=== PATIENT | female | born 1975 | race Caucasian/White ===

== ENCOUNTER 2021-05-31 10:22 | Emergency (ER) | payer BC, SELFPAY ==
[2021-05-31 10:23] VITALS: BP 153/90; PULSE 97; RESP 18; TEMP 37.1; O2SAT 99; BMI 57.6
--- NOTE | 2021-05-31 10:40 | XR_ITS ---
PROCEDURE: XR KNEE LT 3V CLINICAL INDICATION: FALL Posttraumatic pain COMPARISON: No exams were available for comparison FINDINGS: No fracture or dislocation. No lytic or blastic change. There is normal mineralization. Mild osteoarthritic changes are present involving all 3 compartments. No acute fracture or dislocation. Generalized soft tissue swelling is present in the upper pretibial region and infrapatellar area Other findings:None. IMPRESSION: Soft tissue swelling, no acute fracture Dictated by: Tito Brooks MD 05/31/2021 11:38 Tito Brooks MD in OV 05/31/2021 11:38
--- NOTE | 2021-05-31 12:05 | HMH.EDUTC ---
[facility] [place] Clinical Impression: Contusion of left knee Qualifiers: Encounter type: initial encounter Qualified Code(s): S80.02XA - Contusion of left knee, initial encounter Disposition: Home, Self-Care Condition on Discharge: Good Instructions: How to Use Crutches, Knee Sprain, DI for Knee Sprain, DI for Knee Pain, How to Use a Knee Immobilizer Additional Instructions: Rest the extremity, apply ice for 15 minutes as tolerated three or four times per day, Elevate the extremity as tolerated while you are resting. Take ibuprofen for pain. I sent in a prescription to your pharmacy. Follow up with Dr. Torrez (orthopedics). I put in a referral but you need to call his office and schedule an appointment. Follow up with your regular doctor. GO TO THE ER FOR ANY WORSENING SYMPTOMS Prescriptions: Ibuprofen [Ibuprofen 600mg Tablet] 600 mg PO Q6HP PRN #30 tab PRN Reason: Mild Pain Transmission Status: Received by [facility] Referrals: Ladarius Liang [Primary Care Provider] - Amaury Torrez MD [Staff Physician] - Forms: Work/School Release Time of Disposition: 12:09 Medical Decision Making - Medical Records Medical records reviewed: No: I reviewed the patient's medical records. - Nima Inquiry Pt receiving controlled substance: No Vital Signs: 05/31/21 10:23 05/31/21 12:30 Temperature 98.7 F 98.7 F Temperature Source Oral Pulse Rate 97 H Pulse Rate [Left Radial] 97 H Respiratory Rate 18 18 Blood Pressure 153/90 H Blood Pressure [Right Arm] 153/90 H Blood Pressure Mean [Right Arm] 111 Blood Pressure Source Automatic Cuff Blood Pressure Source [Right Arm] Automatic Cuff Blood Pressure Position Sitting Blood Pressure Position [Right Arm] Sitting 02 Sat by Pulse Oximetry 99 Oxygen Delivery Method Room Air - Lab Data Lab results reviewed: Yes: I reviewed the patient's lab results. [facility] [place] - General Stated complaint: AO [id number] left knee pain, home accident Time Seen by Provider: 05/31/21 11:00 Mode of Arrival: Ambulatory Source of Information: Patient Limitations: No Limitations Description of Symptoms (Recalled from Triage Doc. by RN): c/o left knee pain and swelling after she fell on the concrete when her dog pulled her HEENT Symptoms (Recalled from RN notes): No Resp Symptoms (Recalled from RN notes): No Skin Symptoms (Recalled from RN notes): No MS Symptoms (Recalled from RN notes): Yes Functional Status (Recalled from RN notes): wnl - History of Present Illness Provider Complaint: She states that she was walking her dog this morning when the dog pulled her and she fell. She came down on her left knee. Since then she has had left knee pain and swelling. She states that bearing weight on the knee makes it much worse. - Related Data Previous Rx's Medication Instructions Recorded Ibuprofen [Ibuprofen 600mg 600 mg PO Q6HP PRN #30 tab 05/31/21 Tablet] - Worker's Comp Is this a Worker's Comp case?: No [facility] History - Hepatitis A Screen Drug use history?: No High risk sexual behaviors?: No History of sexually transmitted infection?: No Currently employed?: No Childcare worker?: No Do you have indoor plumbing?: Yes Do you have electricity?: Yes Attestation statement:: This patient has been screened for Hepatitis A risk factors. I have reviewed the patient's past medical history: Yes ROS Obtained: Yes All systems reviewed & no additional complaints - Constitutional Constitutional: Denies chills, Denies fever(s) - Eyes Eyes: Denies eye discharge - ENT Ears, Nose, Mouth, and Throat: Denies dizziness, Denies otalgia, Denies sore throat - Cardiovascular Cardiovascular: Denies chest pain - Respiratory Respiratory: Denies chest congestion, Denies cough, Denies dyspnea, Denies stridor, Denies wheezing - Gastrointestinal Gastrointestingal: Denies: abdominal pain, diarrhea, nausea, vomiting - Musculoskeletal Musc
[2021-05-31 12:30] VITALS: BP 153/90; PULSE 97; RESP 18; TEMP 37.1; O2SAT 99
== END 2021-05-31 12:30 | disposition home or self-care (01) ==
PROVIDERS: Emergency Provider Nurse Practitioner Family; PCP Family Medicine
DX: S80.02XA Contusion of left knee, initial encounter (principal); W01.0XXA Fall on same level from slipping, tripping and stumbling without subsequent striking against object, initial encounter; Y93.K1 Activity, walking an animal; Y92.480 Sidewalk as the place of occurrence of the external cause
CPT/HCPCS: 73562; 99202; G0463

== ENCOUNTER 2024-12-29 16:44 | Outpatient (CLI) | payer BC, SELFPAY ==
[2024-12-29 19:26] LABS: Alanine Aminotransferase 55 U/L (12-78); Albumin/Globulin Ratio 1.9 (1.1-1.8); Alkaline Phosphatase 140 U/L (38-126); Anion Gap 13.5 mEq/L (5-15); Aspartate Amino Transferase 40 U/L (14-36); Bilirubin,Total 1.2 mg/dl (0.2-1.3); Blood Urea Nitrogen 25 mg/dl (7-17); Calcium 11.9 mg/dl (8.4-10.2); Carbon Dioxide 28 mmol/L (22.0-30.0); Chloride 100 mmol/L (98-107); Estimated Glomerular Filt Rate 89 ml/min (>60); GFR (African American) 108 ML/MIN (>60); Globulin 2.6 g/dL (1.3-3.2); Glucose 105 mg/dl (74-100); Potassium 3.5 mmoL/L (3.5-5.1); Sodium 138 mmol/L (136-145); Total Protein,Serum 7.6 g/dl (6.3-8.2)
[2025-01-03 04:12] LABS: PTH Related Peptide < 2.0 pmol/L (.)
== END 2024-12-29 23:59 | disposition home or self-care (01) ==
LOC: LAB 16:44
PROVIDERS: PCP Internal Medicine; Visit Provider Internal Medicine
DX: E87.6 Hypokalemia (principal); R79.89 Other specified abnormal findings of blood chemistry
CPT/HCPCS: 36415; 80053; 82397

== ENCOUNTER 2025-02-05 09:12 | Outpatient (CLI) | payer BC, SELFPAY ==
--- NOTE | 2025-02-05 09:54 | ECG_ITS ---
APPROVED REPORT Exam: Resting ECG HR:93 bpm ECG Measurements Heart Rate 93 AXES HI 140 P 24 QRSd 102 QRS -13 QT 353 T 9 QTc 404 Conclusion SINUS RHYTHM MODERATE VOLTAGE CRITERIA FOR LVH, CONSIDER NORMAL VARIANT [MEETS CRITERIA IN ONE OF: R(aVL), S(V1), R(V5), R(V5/V6)+S(V1)] BORDERLINE ECG UNCONFIRMED REPORT Electronically signed by : Ishan Armando MD 02/09/2025 08:49:50
[2025-02-05 10:00] VITALS: BMI 52.8
[2025-02-05 10:50] LABS: Basophils % 0.5 % (0.1-2.0); Eosinophils # 0.1 K/mm3 (0.0-0.4); Eosinophils % 1.8 % (0.1-12.0); Hematocrit 41.9 % (37.0-47.0); Hemoglobin 12.9 g/dL (12.2-16.2); Lymphocytes # 1.8 K/mm3 (0.7-4.5); Lymphocytes % 29.2 % (10-50); Mean Corpuscular HGB Conc 30.8 g/dL (31.8-35.4); Mean Corpuscular Volume 84.3 fl (81-99); Mean Platelet Volume 10.6 fl (7.4-10.4); Monocytes # 0.4 K/mm3 (0.1-1.0); Monocytes % 6.9 % (1.7-9.3); Neutrophils # 3.9 K/mm3 (1.8-7.8); Neutrophils % 61.4 % (37.0-80.0); Nucleated Red Blood Cells # 0 10^3/uL; Nucleated Red Blood Cells % 0 %; Platelet Count 348 K/mm3 (142-424); Red Blood Count 4.97 M/mm3 (4.20-5.40); Red Cell Distribution Width 15.5 % (11.5-17.5); Red Cell Distribution Width-SD 47.7 fL; White Blood Count 6.3 K/mm3 (4.8-10.8)
[2025-02-05 10:58] LABS: Albumin Level 4.5 g/dl (3.5-5.0); Chloride 101 mmol/L (98-107); Sodium 139 mmol/L (136-145)
[2025-02-05 10:59] LABS: Potassium 3.2 mmoL/L (3.5-5.1)
[2025-02-05 11:01] LABS: Alanine Aminotransferase 45 U/L (12-78); Albumin/Globulin Ratio 1.3 (1.1-1.8); Alkaline Phosphatase 132 U/L (38-126); Anion Gap 13.2 mEq/L (5-15); Aspartate Amino Transferase 47 U/L (14-36); Bilirubin,Total 1.1 mg/dl (0.2-1.3); Blood Urea Nitrogen 16 mg/dl (7-17); Calcium 11.8 mg/dl (8.4-10.2); Carbon Dioxide 28 mmol/L (22.0-30.0); Creatinine Clearance Estimated 78 mL/min (50-200); Estimated Glomerular Filt Rate 89 ml/min (>60); GFR (African American) 108 ML/MIN (>60); Globulin 3.4 g/dL (1.3-3.2); Glucose 109 mg/dl (74-100); HCG Qualitative, Serum Negative (Negative); Total Protein,Serum 7.9 g/dl (6.3-8.2)
[2025-02-05 11:23] LABS: HCG,Quantitative < 2 mIU/ml (0-5.42)
== END 2025-02-05 23:59 | disposition home or self-care (01) ==
PROVIDERS: PCP Internal Medicine; Visit Provider Obstetrics & Gynecology
DX: N93.9 Abnormal uterine and vaginal bleeding, unspecified (principal); R94.31 Abnormal electrocardiogram [ECG] [EKG]
CPT/HCPCS: 80053; 84702; 84703; 85025; 93005

== ENCOUNTER 2025-02-10 13:19 | Observation (INO) | payer BC, SELFPAY ==
[2025-02-05 10:23] VITALS: BMI 52.8
[2025-02-10] VITALS (26 sets, daily range): BP systolic 90–142; BP diastolic 35–86; PULSE 65–96; RESP 14–18; TEMP 36.4–36.7; O2SAT 92–99
[2025-02-10] MEDS: LACTATED RINGERS 1000ML 1,000 ML 25 ML IV (06:33)
[2025-02-10] MEDS: GABAPENTIN 300MG CAPSULE 600 MG (06:33)
[2025-02-10] MEDS: ACETAMINOPHEN 500MG TAB 1000 MG PO (06:34)
--- NOTE | 2025-02-10 07:12 | EXP.ANES.CKL ---
[facility] Disclaimer: The information contained in this section may have been updated after the patient was seen, as this information can be updated by other users. Medical History HTN (hypertension) Mitral valve regurgitation History of hypertension Adenomyosis Surgical History History of surgery biliopancreatic diversion H/O tubal ligation Gastric bypass status for obesity History of cholecystectomy History of endometrial ablation Family History Grandmother Cancer paternal-breast Heart attack Father Diabetes Coronary artery disease Mother Coronary artery disease Brother Heart attack Social History Smoking Status: Never smoker alcohol intake: never substance use type: denies use current occupational status: employed Travel in the last 8 weeks: None [facility] Anesthesia Checklist Patient Identification Patient Identification: Arm Band Structural Data Admitted From: Home Planned Operative Procedure/s: Total Vaginal Hysterectomy Consent for Planned Operative Procedure(s) Verified: Yes Verified Documents: Surgical Consent and History and Physical NPO Status Verified Time NPO: 00:00 Additional verifications Anesthesia Reactions: No Hx Blood Transfusions: Yes Blood Transfusion Reaction: No Airway Assessment Mallampati Score:: Class II C-Spine Mobility Assessed: Yes TMJ Mobility Assessed: Yes Dentition: Good Dentition Neurological Assessment Level of Consciousness: Awake, Alert and Appropriate Anesthesia Plan Anesthesia Risk discussed: Yes Anesthesia Plan: Verified ASA Class: III Anesthesia Type: General
[2025-02-10] MEDS: CEFAZOLIN SODIUM 3 GM in 0.9 % SODIUM CHLORIDE 100 ML IV (07:16)
[2025-02-10] MEDS: METRONIDAZ/SOD CHL 500 MG/100 ML PIGGYBACK 100 MG IV (07:35)
[2025-02-10] MEDS: METHYLENE BLUE 0.5% 10ML AMPULE 50 MG IV (07:40)
[2025-02-10] MEDS: LIDOCAINE 1% W/EPI 1:100,000 20ML VIAL 20 ML (07:50)
--- NOTE | 2025-02-10 09:36 | EXP.OP.NOTE ---
Date of procedure: 02/10/25 Pre-op Diagnosis:: 1. Abnormal uterine bleeding 2. Heavy uterine bleeding 3. History of anemia,requiring blood transfusion Post-op Diagnosis:: 1. Abnormal uterine bleeding 2. Heavy uterine bleeding 3. History of anemia,requiring blood transfusion Procedure performed:: 1. Total vaginal hysterectomy 2. Cystoscopy Surgeon:: Suzy Bobby DO Strategic Accounts Manager(s):: Benton Felipe MD REAL ESTATE JOB TITLES:: Noam Reyes Anesthesia: GETA Estimated blood loss (mL): 100 Operative findings:: Uterine EUA was nonrevealing secondary to habitus. Minimal uterine descent noted. No gross adnexal masses were appreciated. Operative note:: Pt was taken back to the OR where GETA was obtained without difficulty. SCDs were placed and found to be working. The patient was placed in dorsal lithotomy position using yellowfin stirrups. The vagina was prepped and draped in the normal sterile fashion. An in and out catheter was used to drain the bladder and 20 mL of methylene blue normal saline were inserted into the bladder. A weighted speculum and Cierra were used to visualize the cervix. Two Smith tenaculums were used to grasp the anterior and posterior ectocervix on the right and left. A scalpel was used to make a circumferential incision at the cervicovaginal junction. A raytec was used to bluntly dissect the paracervical fascia from the cervix off the vaginal mucosa. Metzenbaum scissors and pickups were used to enter the colpotomy posteriorly and a long weighted speculum was placed. Abdominal entry was confirmed by the presence of the ovary and omentum. The left uterosacral ligament was grasped with a shirin clamp, cut, and suture ligated with 0-Vicryl. This was tagged for later incorporation to the cuff. This process was repeated on the contralateral side. The anterior vaginal tissue was further dissected off the cervix. Pickups and Metzenbaum scissors were used to make the anterior colpotomy. A Scipio retractor was placed. Entry to the abdominal cavity was confirmed with the presence of omentum and the left ovary was visualized. A shirin clamp was used to clamp time working serially down the broad ligament remaining proximal to the uterine body. This was repeated on the contralateral side. The cardinal ligaments and uterine vessels were identified bilaterally and clamped, cut, and suture-ligated bilaterally. The fundus was rotated posteriorly of the vagina secondary to a large uterine body. The utero-ovarian ligaments identified, clamped, and suture-ligated. The uterus was free and removed from the vagina, passed off the operative field and sent to pathology for evaluation. The ovaries were not easily identified and left in situ. A damp lap was placed in the abdomen to retract the bowel and omentum cephalad. The posterior peritoneum was fixed to the posterior vaginal cuff with a running locking stitch. The vaginal cuff was then closed with 0 Vicryl in a running locking fashion. There was a small linear abrasion to the left vaginal sidewall that was bleeding and made hemostatic with a 201 3-0 Vicryl. Secondary to atrophic vaginal mucosa there was also a small abrasion at the perineum in the midline that was repaired. Cystoscopy Cystoscopy was performed with a 70 degree cystoscope and distended with normal saline. Inspection of the bladder showed a normal-looking, blue dyed, smooth bladder mucosa with no evidence of injury, suture, puckering, or other abnormalities.? Both ureteral meatuses were visualized and were noted to be expelling urine in routine fashion.? Cystoscope was removed. Sponge, instrument and needle counts were correct x3, per nursing. The patient was awakened from general anesthesia and transferred to the PACU in stable condition. Condition: stable Disposition: floor Specimens:: Uterine body, cervix Complications:: None
--- NOTE | 2025-02-10 09:38 | P.PNANES_ITS ---
[facility] Anesthesia Record Part I Anesthesia Record I Intake, IV Amount: 700 Hydration: Adequate Estimated blood loss (mL): 100 Urine output (mL): 0 Blood Products used (#): none Blood Pressure: 113/81 SaO2: 93 Pulse Rate: 81 Airway Patency: Patent Respiratory Rate: 14 Temperature: 97.6 F Patient is:: Stable Stable to PACU at:: 09:30
[2025-02-10] MEDS: MORPHINE 2MG/ML SYRINGE 2 MG IV ×2 (09:55→10:00)
[2025-02-10] MEDS: ONDANSETRON 4MG/2ML VIAL 4 MG IV (10:04)
[2025-02-10] MEDS: KETOROLAC 30MG/ML VIAL 30 MG IV (10:10)
[2025-02-10] MEDS: OXYCODONE 5MG W/APAP 325MG TABLET 1 EACH PO ×2 (10:15→20:51)
[2025-02-10] MEDS: SODIUM CHLORIDE 0.9% 25ML BAG 25 ML IV (10:38)
[2025-02-10] MEDS: PROMETHAZINE HCL 25MG/ML 1ML VIAL 12.5 MG IV (10:38)
--- NOTE | 2025-02-10 13:19 | EXP.ANES.II ---
[facility] Anesthesia Record Part II Anesthesia Record Part II Discharge Time: 11:00 Destination: Surgical Day Care (OP Surgery) PACU nurse assessment reviewed?: Yes Patient Condition:: Good Anesthesia Complications:: None Swallowing reflex intact?: Yes Airway Patency: Patent Cyanosis?: No Blood Pressure: 112/72 SaO2: 97 Respiratory Rate: 18 Pulse Rate: 79 Temperature: 97.8 F Mental Status: Alert & Oriented Pain level:: 7 Nausea and/or vomitting:: None Intake, IV Amount: 0 Hydration: Adequate
--- NOTE | 2025-02-10 13:28 | SUR.PHASEII ---
1315: Decision to admit per Dr. Bobby for over night observation. Room 279 assigned to pt. Report given to Kita RN per Melly Bazan RN. 1327: Pt taken to room per Sima Saez RN by wheelchair.
[2025-02-10] MEDS: BENZOCAINE-MENTHOL SPRAY 56GM CAN TP (17:34)
--- NOTE | 2025-02-10 18:44 | PC.NURSE ---
Report received from Kita Mast RN.
--- NOTE | 2025-02-10 18:44 | PC.NURSE ---
Report given to CHA De Los Santos.
--- NOTE | 2025-02-10 19:30 | PC.NURSE ---
Pt is visiting with family. She denies any current needs or concerns. Nurse call button is within reach.
[2025-02-10] MEDS: DOCUSATE SODIUM 100 MG CAPSULE 200 MG PO (20:51)
--- NOTE | 2025-02-10 20:51 | PC.NURSE ---
Pt given Oxycodone 1 tab po for her pain. Pt also given Colace per prn order to prevent constipation. Pt also given a heating pad for prn use to her abdominal cramps.
--- NOTE | 2025-02-10 22:52 | PC.NURSE ---
Dr Bobby called and asked for an update on pt's status. She did request that pt's SPO2 be spot checked while she is sleeping. SPO2 checked = 93-94% at this time and pt was sleeping upon this RN entering the room and applying the SPO2 monitor. Pt denies any current needs or concerns.
[2025-02-11] VITALS: BP 120/63; PULSE 84; RESP 15; TEMP 36.7; O2SAT 98
[2025-02-11] MEDS: ACETAMINOPHEN 500MG TAB 500 MG PO ×2 (01:27→08:48)
--- NOTE | 2025-02-11 01:27 | PC.NURSE ---
Pt given Tylenol 500mg po for her c/o cramping abdominal pain rated 3 out of 10. Pt reports that she recently got up to void and the cramping is keeping her awake. Pt continues to use her heating pad prn. Nurse call button is within reach.
[2025-02-11 01:28] VITALS: RESP 16; O2SAT 96
[2025-02-11 04:28] VITALS: BP 115/66; PULSE 78; RESP 16; TEMP 36.9; O2SAT 95
[2025-02-11 06:00] VITALS: O2SAT 99
--- NOTE | 2025-02-11 06:33 | PC.NURSE ---
Pt is resting in bed, she reports minimal pain and that she rested well overnight. Pt denies any current needs. Pt is voiding without difficulty and reported no vaginal bleeding the last couple of times she got up.
[2025-02-11 06:43] LABS: Basophils % 0.4 % (0.1-2.0); Eosinophils # 0.1 K/mm3 (0.0-0.4); Eosinophils % 0.7 % (0.1-12.0); Hemoglobin 10.9 g/dL (12.2-16.2); Lymphocytes # 2.4 K/mm3 (0.7-4.5); Lymphocytes % 30.2 % (10-50); Mean Corpuscular HGB Conc 30.3 g/dL (31.8-35.4); Mean Corpuscular Hemoglobin 25.4 pg (27.0-31.2); Mean Corpuscular Volume 83.9 fl (81-99); Mean Platelet Volume 9.9 fl (7.4-10.4); Monocytes # 0.7 K/mm3 (0.1-1.0); Monocytes % 8.3 % (1.7-9.3); Neutrophils # 4.8 K/mm3 (1.8-7.8); Neutrophils % 60.2 % (37.0-80.0); Nucleated Red Blood Cells # 0 10^3/uL; Nucleated Red Blood Cells % 0 %; Platelet Count 285 K/mm3 (142-424); Red Blood Count 4.29 M/mm3 (4.20-5.40); Red Cell Distribution Width 15.5 % (11.5-17.5); Red Cell Distribution Width-SD 47.4 fL
[2025-02-11 06:51] LABS: Albumin Level 3.6 g/dl (3.5-5.0); Chloride 105 mmol/L (98-107); Potassium 3.1 mmoL/L (3.5-5.1); Sodium 141 mmol/L (136-145)
[2025-02-11 06:54] LABS: Alanine Aminotransferase 33 U/L (12-78); Albumin/Globulin Ratio 1.2 (1.1-1.8); Alkaline Phosphatase 94 U/L (38-126); Anion Gap 9.1 mEq/L (5-15); Aspartate Amino Transferase 30 U/L (14-36); Bilirubin,Total 0.5 mg/dl (0.2-1.3); Blood Urea Nitrogen 10 mg/dl (7-17); Calcium 10.4 mg/dl (8.4-10.2); Carbon Dioxide 30 mmol/L (22.0-30.0); Creatinine Clearance Estimated 91 mL/min (50-200); Estimated Glomerular Filt Rate 107 ml/min (>60); GFR (African American) 129 ML/MIN (>60); Globulin 2.9 g/dL (1.3-3.2); Glucose 100 mg/dl (74-100); Total Protein,Serum 6.5 g/dl (6.3-8.2)
--- NOTE | 2025-02-11 07:05 | PC.NURSE ---
Report given to Gwen Turk RN
[2025-02-11 08:42] VITALS: BP 142/93; PULSE 80; RESP 18; TEMP 36.6; O2SAT 94
[2025-02-11] MEDS: POTASSIUM CHLORIDE 20MEQ TAB 40 MEQ PO (08:47)
--- NOTE | 2025-02-11 08:53 | P.HPDS_ITS ---
General Admission date:: 02/10/25 Discharge date: 02/11/25 *Admission Date: 02/10/25 *Chief complaint: hysterectomy *History of present illness: Who presented this morning for a total vaginal hysterectomy with cystoscopy. Surgery was completed and was uncomplicated [facility] Disclaimer: The information contained in this section may have been updated after the patient was seen, as this information can be updated by other users. Medical History HTN (hypertension) Mitral valve regurgitation History of hypertension Adenomyosis Surgical History History of surgery biliopancreatic diversion H/O tubal ligation Gastric bypass status for obesity History of cholecystectomy History of endometrial ablation Family History Grandmother Cancer paternal-breast Heart attack Father Diabetes Coronary artery disease Mother Coronary artery disease Brother Heart attack Social History (Updated 02/10/25 @ 15:11 by Terrie Lazo RN) Smoking Status: Never smoker alcohol intake: never substance use type: denies use current occupational status: employed Travel in the last 8 weeks: None Have you lived/traveled outside US in past 30 days?: No Contact w/someone who lives/traveled outside US past 30 days?: No Exposure to someone with infectious disease in past 14 days?: No Do you have a fever (greater than 100.4 F or 38 C)?: No Have you tested positive for COVID-19: No Exposed to someone with COVID-19 in past 14 days?: No Do you have a sore throat?: No Do you have a cough?: No Do you have any weakness?: No Do you have any diarrhea?: No Are you experiencing any unusual bleeding?: No Do you have any muscle aches/pain?: No Do you have any abdominal pain?: No Are you experiencing loss of taste or smell?: No Other Medical History Have you received the Flu Vaccine for this season: No Have you received the Pneumonia Vaccine: No Review of Systems Review of Systems Review of systems (narrative): Review of Systems Constitutional: Denies fever, chills, and sweats Eyes: Denies vision change/ pain Respiratory: Denies cough and shortness of breath Cardiovascular: Denies chest pain and lightheadedness Gastrointestinal: denies abdominal pain. Denies nausea, vomiting. Genitourinary: Denies dysuria and incontinence Musculoskeletal: Denies shoulder pain and back pain Neurological: Denies change in speech or headaches Exam Data for Last 24 hours Vital signs and Labs for Last 24 Hours: Temp Pulse Resp BP Pulse Ox O2 Del Method 98.4 F 78 16 115/66 99 Room Air 02/11/25 04:28 02/11/25 04:28 02/11/25 04:28 02/11/25 04:28 02/11/25 06:00 02/11/25 06:00 Laboratory Results - last 24 hr 02/11/25 06:32: WBC 8.0, RBC 4.29, Hgb 10.9 L, Hct 36.0 L, MCV 83.9, MCH 25.4 L, MCHC 30.3 L, RDW 15.5, Plt Count 285, MPV 9.9, Neut % (Auto) 60.2, Lymph % (Auto) 30.2, [place] % (Auto) 8.3, Eos % (Auto) 0.7, Baso % (Auto) 0.4, Neut # (Auto) 4.8, Lymph # (Auto) 2.4, [place] # (Auto) 0.7, Eos # (Auto) 0.1, Baso # (Auto) 0.0, Sodium 141, Potassium 3.1 L, Chloride 105, Carbon Dioxide 30, Anion Gap 9.1, BUN 10, Creatinine 0.60, Estimated Creat Clear 91, Estimated GFR 107, Est GFR ( Amer) 129, Glucose 100, Calcium 10.4 H, Magnesium 2.0, Total Bi lirubin 0.5, AST 30, ALT 33, Alkaline Phosphatase 94, Total Protein 6.5, Albumin 3.6, Globulin 2.9, Albumin/Globulin Ratio 1.2 I & O for Last 24 hours: Intake & Output 02/08/25 02/09/25 02/10/25 02/11/25 23:59 23:59 23:59 23:59 Intake Total 700 / 700 Output Total / 2 / 2 Balance 699 / 699 -2 / -2 Constitutional Constitutional: no acute distress *Routine HEENT Exam Head: Present normocephalic Eye: Present EOMI and PERRL ENT: Present mucous membranes moist *Routine Neck Exam Neck: Present supple; Absent lymphadenopathy *Routine Respiratory Exam Respiratory: Present CTA bilaterally *Routine Cardiovascular Exam Cardiovascular: Present RRR *Routine Abdominal Exam Abdominal: Present soft and normoactive bowel sounds; Absent tenderness *Routine Rectal Exam Rectal:: deferred *Routine Genitalia Exam Genitalia:: deferred *Routine Extremities Exam Extremities: Absent cyanosis, clubbing or edema *Routine Skin Exam Skin: Present warm; Absent rash *Routine Neurological Exam Neurological: Present alert and oriented X3 Meds Home Medications and Allergies Home Medications ?Medication ?Instructions ?Recorded ?Confirmed ?Type ergocalciferol (vitamin D2) 1,250 1,250 mcg PO WEEKLY 12/16/24 02/10/25 History mcg (50,000 unit) capsule (Vitamin D2) famotidine 20 mg tablet 20 mg PO DAILY 12/29/24 02/10/25 History cyanocobalamin (vitamin B-12) 100 mcg SQ WEEKLY 02/05/25 02/10/25 History 1,000 mcg/mL injection solution potassium phosphate, monobasic 500 500 mg PO BID 02/05/25 02/10/25 History mg soluble tablet (K-Phos Original) cholecalciferol (vitamin D3) 1,250 1,250 mcg PO DAILY 02/09/25 02/10/25 History mcg (50,000 unit) capsule enoxaparin 40 mg/0.4 mL 40 mg (0.4 mL) SQ DAILY 7 days 02/09/25 02/10/25 Rx subcutaneous syringe (Lovenox) #2.8 mL needle (disp) 25 gauge 25 gauge x #1,000 ea 02/09/25 02/10/25 History 1 (BD PrecisionGlide) acetaminophen 500 mg tablet 500 mg PO Q6H PRN fever or pain 02/10/25 Rx #30 tabs chlorthalidone 25 mg tablet 25 mg PO DAILY 02/10/25 02/10/25 History oxycodone 5 mg tablet 5 mg PO Q8H PRN pain #25 tabs 02/10/25 Rx sennosides 8.6 mg tablet (Senna 8.6 mg PO BIDP PRN Constipation 02/10/25 Rx Lax) #60 tabs simethicone 125 mg tablet 125 mg PO DAILY PRN abdominal 02/10/25 Rx distention #60 tabs potassium chloride 20 mEq 20 meq PO BID #60 tabs 02/11/25 Rx tablet,extended release New Prescriptions to Start Prescriptions: acetaminophen Suzy Bobby oxycodone Suyz Bobby potassium chloride Suzy Bobby sennosides [Senna Lax] Suzy Bobby simethicone Suzy Bobby Allergies Allergy/AdvReac Type Severity Reaction Status Date / Time lisinopril Allergy Severe Swelling Verified 02/10/25 06:38 of Lip/Tongue/Throat Hospital Course Hospital Course Hospital Course: Radha Donis is a 49-year-old postop day 1 from a total vaginal hysterectomy. She is doing well this morning. Yesterday she plans to go home but was very groggy after anesthesia we initially had difficulty getting her pain controlled but it was well-controlled at 2 hours postoperatively. She was dozing off and noted to have oxygen desaturations to the 70s and 80s. Her family were at bedside and they report a history of noticing apneic events throughout the last few years. Decision was made to observe her overnight since she would need narcotic pain medicine tonight for pain management from her hysterectomy. Otherwise she was doing very well she was tolerating p.o., ambulating, and voiding without difficulty. Patient reports that she received excellent care overnight and is very happy with the nursing staff and all the education and comfort needs that they have provided for her. She did have some desaturations to the 80s with naps but otherwise her oxygen saturation has been in the 90s. This was discussed with her PCP and she will get a sleep study in the postoperative period. She also has electrolyte imbalances and has hypokalemia which has been chronic. This is likely complicated by her history of bariatric surgery x 2. Will replace her potassium this morning and she will follow-up with her PCP for chronic electrolyte imbalances. I reviewed a healthy diet high in protein which was necessary for optimal healing. I reviewed postoperative instructions and restrictions. The patient and her daughter, Rina voiced understanding Pt started her postop lovenox last night. Results Data Completed and Pending Labs on day of discharge: Labs from last 24 hours 02/11/25 06:32 WBC 8.0 RBC 4.29 Hgb 10.9 L Hct 36.0 L MCV 83.9 MCH 25.4 L MCHC 30.3 L RDW 15.5 Plt Count 285 MPV 9.9 Neut % (Auto) 60.2 Lymph % (Auto) 30.2 [place] % (Auto) 8.3 Eos % (Auto) 0.7 Baso % (Auto) 0.4 Neut # (Auto) 4.8 Lymph # (Auto) 2.4 [place] # (Auto) 0.7 Eos # (Auto) 0.1 Baso # (Auto) 0.0 Sodium 141 Potassium 3.1 L Chloride 105 Carbon Dioxide 30 Anion Gap 9.1 BUN 10 Creatinine 0.60 Estimated Creat Clear 91 Estimated GFR 107 Est GFR ( Amer) 129 Glucose 100 Calcium 10.4 H Magnesium 2.0 Total Bilirubin 0.5 AST 30 ALT 33 Alkaline Phosphatase 94 Total Protein 6.5 Albumin 3.6 Globulin 2.9 Albumin/Globulin Ratio 1.2 Discharge Plan Disposition Patient Disposition: Home, Self-Care Follow up Plan Follow up with: Suzy Bobby DO [Staff Physician] - 02/17/25 9:30 am Prescriptions/Medication Reconciliation: New acetaminophen 500 mg tablet 500 mg PO Q6H PRN (Reason: fever or pain) Qty: 30 3RF sennosides [Senna Lax] 8.6 mg Tablet 8.6 mg PO BIDP PRN (Reason: Constipation) Qty: 60 2RF oxycodone 5 mg tablet 5 mg PO Q8H PRN (Reason: pain) Qty: 25 0RF simethicone 125 mg tablet 125 mg PO DAILY PRN (Reason: abdominal distention) Qty: 60 2RF potassium chloride 20 mEq tablet extended release 20 meq PO BID Qty: 60 1RF Continued cholecalciferol (vitamin D3) 1,250 mcg (50,000 unit) capsule 1,250 mcg PO DAILY Patient Comments: Take 1 tablet by mouth 2 (Two) Times a Week. (DME) BD PrecisionGlide 25 gauge x 1 needle See Rx Instructions .ROUTE .MEDSUPPLY Qty: 1000 Patient Comments: Inject 1 each as directed Daily. For B12 injections Rx Instructions: As directed enoxaparin [Lovenox] 40 mg/0.4 mL syringe 40 mg SQ DAILY 7 Days Qty: 2.8 0RF Rx Instructions: daily for 7 days after surgery ergocalciferol (vitamin D2) [Vitamin D2] 1,250 mcg (50,000 unit) capsule 1,250 mcg PO WEEKLY Patient Comments: Take 1 capsule by mouth 1 (One) Time Per Week. famotidine 20 mg tablet 20 mg PO DAILY K-Phos Original 500 mg Tablet,Soluble 500 mg PO BID cyanocobalamin (vitamin B-12) 1,000 mcg/mL Solution 100 mcg SQ WEEKLY chlorthalidone 25 mg tablet 25 mg PO DAILY Problem Reconciliation Problems Reviewed?: Yes Patient Discharge Instructions ACTIVITY: Continue current activity DIET: regular diet Additional Instructions: Post op plan You had a total vaginal hysterectomy. This means that your uterus and cervix were removed. The top of your vagina is closed with dissolvable sutures. I also used a camera to look in your bladder after the surgery and there were no problems with your bladder wall or ureters. There were no complications with your surgery. I have called several medications in for you and they are detailed below as well as discharge instructions. If you have any questions, please call the office. You will follow-up in office for a postop visit at 1 weeks and at 6 weeks. At your 6-week postop appointment you will have a pelvic exam to ensure your cuff is healing well. Activity: - No lifting more than 10 lbs for 6 weeks. - No driving while you are taking narcotic pain medication. - Keep your wound clean and dry, ok to wash with soap and water but pat thoroughly dry Medications: - Acetaminophen (Tylenol) for discomfort. Please take Tylenol scheduled for the first 2 to 3 days. Tylenol dosing should not exceed 1000 mg every 6 hours. Please do not consume more than 4000 mg in a 24-hour. - Oxycodone (a narcotic pain medication) use the narcotic pain medication for breakthrough or severe pain. You will want to stop the narcotic pain medication first. Narcotic pain medication can be habit forming so please only use this medication if you need it. This pain medication is also associated with consti pation please remember to increase your fiber intake, and water intake. I have also given you a stool softener. You should not take more than 1-2 5 mg tablets every 6 hours for pain that rates greater than 6. - Senna (a stool softener) use this medication for constipation as needed. Narcotics can increase your risk for constipation - Simethicone: a gas medication for bloating and gas pain you may experience in the next 1-2 weeks. Please call the office or return to the ER if you have any of the followin. bleeding more than 1 pad an hour for 2 hours 2. pain that does not respond to your narcotic pain medication 3. dizziness or lightheadedness such that you lose consciousness Questions or concerns: It is my privilege to be your doctor. Please let me know if you have other questions or concerns. Suzy Bobby DO [facility] Specialist [place], [place] [address] Patient Instructions: DI for Postoperative Pain, DI for Vaginal Hysterectomy Print Language: [place] Providers Primary Care Provider: Rito Bobby Admit Provider: Suzy Bobby Attending Provider: Suzy Bobby
--- NOTE | 2025-02-11 09:54 | PC.NURSE ---
Discharge education provided, questions encouraged and answered. Pt. v/u.
== END 2025-02-11 10:09 | disposition home or self-care (01) ==
LOC: OB 13:21
PROVIDERS: Admitting Provider Obstetrics & Gynecology; PCP Internal Medicine; Visit Provider Obstetrics & Gynecology
PROC: (CPT 52000; principal; 2025-02-10 07:30)
DX: N93.9 Abnormal uterine and vaginal bleeding, unspecified (principal); R60.0 Localized edema; E55.9 Vitamin D deficiency, unspecified; Z98.84 Bariatric surgery status; I10 Essential (primary) hypertension; Z79.899 Other long term (current) drug therapy; Z88.8 Allergy status to other drugs, medicaments and biological substances
CPT/HCPCS: 52000; 58260; 80053; 83735; 85025; 86850; 96374; G0378; J0690; J1100; J1885; J2250; J2270; J2405; J2550; J3010; J7120

== ENCOUNTER 2025-02-17 10:21 | Outpatient (CLI) | payer BC, SELFPAY ==
[2025-02-17 11:13] LABS: Alanine Aminotransferase 45 U/L (12-78); Albumin/Globulin Ratio 1.3 (1.1-1.8); Alkaline Phosphatase 124 U/L (38-126); Aspartate Amino Transferase 37 U/L (14-36); Bilirubin,Total 0.6 mg/dl (0.2-1.3); Blood Urea Nitrogen 16 mg/dl (7-17); Calcium 11.4 mg/dl (8.4-10.2); Carbon Dioxide 20 mmol/L (22.0-30.0); Chloride 113 mmol/L (98-107); Estimated Glomerular Filt Rate 89 ml/min (>60); GFR (African American) 108 ML/MIN (>60); Globulin 3.1 g/dL (1.3-3.2); Glucose 94 mg/dl (74-100); Sodium 141 mmol/L (136-145); Total Protein,Serum 7.1 g/dl (6.3-8.2)
[2025-02-17 11:24] LABS: Intact Parathyroid Hormone 251.1 pg/mL (7.5-53.5)
[2025-02-17 11:30] LABS: 25-OH Vitamin D, Total 24.5 ng/mL (30-100)
== END 2025-02-17 23:59 | disposition home or self-care (01) ==
LOC: LAB 10:22
PROVIDERS: PCP Internal Medicine; Visit Provider Internal Medicine
DX: Z00.00 Encounter for general adult medical examination without abnormal findings (principal); Z13.21 Encounter for screening for nutritional disorder; R79.89 Other specified abnormal findings of blood chemistry; E55.9 Vitamin D deficiency, unspecified; Z68.43 Body mass index [BMI] 50.0-59.9, adult; E66.9 Obesity, unspecified
CPT/HCPCS: 36415; 80053; 82306; 83970

== ENCOUNTER 2025-02-22 07:34 | Outpatient (CLI) | payer BC, SELFPAY ==
[2025-02-23 14:12] LABS: Calcium, Urine 23.6 mg/dL (Not Estab.); Calcium, Urine 24hr 236 mg/24 hr (0-320)
== END 2025-02-22 23:59 | disposition home or self-care (01) ==
LOC: LAB 07:35
PROVIDERS: PCP Internal Medicine; Visit Provider Internal Medicine
DX: E83.52 Hypercalcemia (principal); R79.89 Other specified abnormal findings of blood chemistry
CPT/HCPCS: 82340

== ENCOUNTER 2025-03-01 12:37 | Outpatient (CLI) | payer BC, SELFPAY ==
--- NOTE | 2025-03-01 13:00 | XR_ITS ---
FINAL REPORT TECHNIQUE: Bone densitometry calculations of the lumbar spine and left hip were obtained. CLINICAL HISTORY: Osteoporosis scan due to hyperparathyroidism COMPARISON: None FINDINGS: Using L1-4, the bone mineral density of the spine is 0.993 g/cm2, corresponding to T-score of -0.5 and a Z score of 0.2. This is within the range of normal. Using the left hip, the bone mineral density of the femoral neck is 0.854 g/cm2, corresponding to a T-score of 0.0 and a Z-score of 0.7. This is within the range of normal. Using the right hip, the bone mineral density of the femoral neck is 0.785 g/cm?, corresponding to a T-score of -0.6 and a Z-score of 0.1. This is within the range of normal. NOTE: T-score: Standard deviation compared with peak bone mass of young adult mean. *Following the recommendations of the International Society of Bone densitometry, classification of hip BMD is based on the lower of two T-scores; total hip or femoral neck. IMPRESSION: 1. Bone mineral density of the lumbar spine within the range of normal. 2. Bone mineral density of the bilateral femoral necks within the range of normal. Reviewed, Interpreted and Dictated by Aaliyah Patel MD Transcribed by Leonora Joe Authenticated and [facility]
== END 2025-03-01 23:59 | disposition home or self-care (01) ==
LOC: RAD 12:40
PROVIDERS: PCP Internal Medicine; Visit Provider Internal Medicine
DX: R79.89 Other specified abnormal findings of blood chemistry (principal); E55.9 Vitamin D deficiency, unspecified
CPT/HCPCS: 77080

== ENCOUNTER → 2025-03-15 06:30 | Outpatient (CLI) | payer BC, SELFPAY | LOC: SL 06:31 | PROVIDERS: PCP Internal Medicine; Visit Provider Internal Medicine | DX: G47.33 Obstructive sleep apnea (adult) (pediatric) (principal) | CPT/HCPCS: G0399 ==

== ENCOUNTER 2025-06-09 09:39 | Outpatient (CLI) | payer BC, SELFPAY ==
--- OUTSIDE RECORDS SUMMARY | 2024-05-18 08:35 | XMS_ITS | Encounter Summary ---
Author Organization [facility] Address [address] [place] [address] Care Team Providers Care Stock Buyer Name Role Phone Ladarius Liang MD Primary Care Provider [phone] Encounter Details Date Type Department Care Team (Late st Contact Info) Description 05/18/2024 8:35 AM EDT Hospital Encounter [facility] PULMONARY & CRITICAL CARE MEDICINE [address] [place] [address] Social History Tobacco Use Types Packs/Day Years [...] or training? Not on file Preferred Language British 10/15/2024 Comments No Sex and Gender Information [...] 10/22/2024 6:00 AM Alicia Sagastume RN * [place] Suicide Severity Rating Scale (Screener/Recent Self-Report) Question Answer Date of Assessment Author 6. Suicidal Behavior (Lifetime) No 6:00 AM Alicia Bradford RN documented as of this encounter Plan of Treatment Upcoming Encounters Date Type Department Care Team (Late st Contact Info) Description 07/23/2025 11:30 AM EDT Office Visit [facility] BARIATRIC SURGERY [address] [place] [address] Calderon Oconnor, IT SYSTEMS ENGINEER [address] [place] [address] documented as of this encounter Procedures Procedure [...] MD 05/19/2024 9:17 PM EDT Workstation ID: [id number] Narrative 05/19/2024 9:17 PM EDT XR CHEST [...] MD 05/19/2024 9:17 PM EDT Workstation ID: [id number] Mikayla Mitchell APRN IMG DIAGNOSTIC IMAGING ORDER MOISÉS Final Result documented in this encounter Visit Diagnoses Not on filedocumented in this encounter Care Teams Stock Buyer Relationship Specialty Start Date End Date Ladarius Liang MD [address] [place], [place] [address] PCP - General Family Medicine 07/20/16 12/16/24 documented as of this encounter
--- OUTSIDE RECORDS SUMMARY | 2025-04-22 14:00 | XMS_ITS | Encounter Summary ---
[facility] Address [address] [place] [address] Care Team Providers Care Sliver Handler Name Role Phone KanuRito zambrano Gama MCLAUGHLIN Primary Care Provider + Encounter Details Date Type Department Care Team (Late st Contact Info) Description 04/22/2025 2:00 PM EDT Office Visit [facility] [address] [facility] [address] [place] [address] Christine Connell APRN [address] [address] Morbid obesity with BMI of 50.0-59.9, adult (Primary Dx); Intestinal malabsorption, unspecified type; Vitamin D deficiency; Abnormal blood level of iron; Fatigue, unspecified type Social History Tobacco Use Types Packs/Day Years Used Date Smoking Tobacco: Never Smokeless Tobacco: Never Tobacco Cessation:Counseling Given: Not Answered Alcohol Use Standard Drinks/Week Comments Never 0 [...] or training? Not on file Preferred Language Sami 10/15/2024 Comments No Sex and Gender Information Value Date Recorded Sex Assigned at Female 04/16/2025 9:07 AM EDT Legal Sex Female 10:48 AM EDT Gender Identity Not on file Sexual Orientation Straight 04/16/2025 9: 07 AM EDT documented as of this encounter Last Filed Vital Signs Vital Sign Reading Time Taken Comments Blood Pressure 130/88 04/22/2025 1:30 PM EDT Pulse 99 04/22/2025 1:30 PM EDT Temperature 36.2 C (97.1 F) 04/22/2025 1:30 PM EDT Respiratory Rate 18 04/22/2025 1:30 PM EDT Oxygen Saturation 99% 04/22/2025 1:30 PM EDT Inhaled Oxygen Concentration - - Weight 127 kg (279 lb 6.4 oz) 04/22/2025 1:30 PM EDT Height 157.5 cm (5' 2 ) 04/22/2025 1:30 PM EDT Body Mass Index 51.1 04/22/2025 1:30 PM EDT documented in this encounter Progress Notes * Christine Connell APRN - 04/22/2025 2:00 PM EDT [facility] Bariatric Surgery [address] [place] [address] [facility] [address] Patient Name: Radha Donis : 1975 Date of Visit: 04/22/2025 Reason for Visit: 6 months post op HPI: Radha Donis is a 49 y.o. female s/p lap BPD/DS/SBR 10/22/24 GDW, previous lap RNY 2002 Dr. Dockery Had hysterectomy 02/10/25- finally released for full activity today. On Wegovy 0.25 mg for the past 2 weeks. Prescribed by PCP. Tolerating well, some constipation. Doing well. Denies dysphagia, reflux, nausea, vomiting, and abdominal pain. Having firm BM every other day. Takes miralax prn. No longer needing PPI. Getting 100-120g prot/day. Drinks protein shake in AM, occasional PM protein shake. Eating 2 meals,plus 1-2 snacks. Drinking 64 fluid oz/day. Physical activity: no routine exercise d/t recent hysterectomy, is going to start playing [employer] ball. Labs 01/21/25- low vit D, high PTH, low phos, high MMA, low potassium (3.3). Given B12 inj, twice weekly vit D, and K-phos. Taking Patches: x4, and twice weekly vit D. On potassium 20 meq BID rx by PCP. Presurgery weight: 333 pounds. Today's weight is 127 kg (279 lb 6.4 oz) pounds, today's Body mass index is 51.1 kg/m??., and weight loss since surgery is 54 pounds. 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 Has beentaking oral iron intermittently Has requirently blood transfusion in the past. Mitral valve regurgitation, rheumatic mild, followed by Dr. Mari with cardiology (normal spontaneous vaginal delivery) x 2 without complics, reports borderline gestational DM with both Osteoarthritis Peripheral edema Snoring has not been tested for sleep apnea Wears glasses Past Surgical History: Procedure Laterality Date CHOLECYSTECTOMY N/A 1994 lap DILATION AND CURETTAGE, DIAGNOSTIC / THERAPEUTIC N/A 2016 with uterine ablation ENDOSCOPY N/A 07/02/2024 Procedure: ESOPHAGOGASTRODUODENOSCOPY WITH BIOPSY; Surgeon: Ezequiel Beverly MD; Location: [facility]; Service: General; Laterality: N/A; GASTRIC BYPASS N/A 07/2003 Andres-en-y Dr. Jacob Dockery GASTRIC BYPASS N/A 10/22/2024 Procedure: BILIOPANCREATIC DIVERSON WITH DUODENAL SWITCH LAPAROSCOPIC WITH ESOPHAGOGASTRODUODENOSCOPY; Surgeon: Ezequiel Beverly MD; Location: [facility]; Service: Bariatric; Laterality: N/A; TEAR DUCT SURGERY TUBAL ABDOMINAL LIGATION 2001 Outpatient Medications Marked as Taking for the 04/22/25 encounter (Office Visit) with Christine Connell APRN Medication Sig Dispense Refill chlorthalidone (HYGROTON) 25 MG tablet Take 1 tablet by mouth Daily. Cholecalciferol 1.25 MG (46825 UT) tablet Take 1 tablet by mouth 2 (Two) Times a Week. 24 tablet 0 Needle, Disp, 25G X 1 misc Inject 1 each as directed Daily. For B12 injections 14 each 0 polyethylene glycol (MiraLax) 17 g packet Take 17 g by mouth Daily As Needed. potassium chloride (KLOR-CON M20) 20 MEQ CR tablet Take 1 tablet by mouth 2 (Two) Times a Day. Semaglutide-Weight Management (Wegovy) 0.25 MG/0.5ML solution auto-injector Inject 0.5 mL under theskin into the appropriate area as directed. weekly Allergies Allergen Reactions Lisinopril Anaphylaxis Social History Socioeconomic History Marital status: Number of children: 2 Tobacco Use Smoking status: Never Smokeless tobacco: Never Vaping Use Vaping status: Never Used Substance and Sexual Activity Alcohol use: Never Drug use: No Sexual activity: Yes Partners: Male control/protection: Tubal ligation Social History Social History Narrative Patient is and resides in [place], [place]. 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 BP 130/88 (BP Location: Left arm, Patient Position: Sitting) Pulse 99 Temp 97.1 ??F (36.2 ??C) Resp 18 Ht 157.5 cm (62 ) Wt 127 kg (279 lb 6.4 oz) SpO2 99% BMI 51.10 kg/m?? Physical Exam Constitutional: Appearance: She is well-developed. Cardiovascular: Rate and Rhythm: Normal rate. Pulmonary: Effort: Pulmonary effort is normal. Musculoskeletal: General: Normal range of motion. Neurological: Mental Status: She is alert. Psychiatric: Thought Content: Thought content normal. Judgment: Judgment normal. Assessment: 6 months s/p lap BPD/DS/SBR 10/22/24 GDW, previous lap RNY 2002 Dr. Dockery ICD-10-CM ICD-9-CM 1. Morbid obesity with BMI of 50.0-59.9, adult E66.01 278.01 Z68.43 V85.43 2. Intestinal malabsorption, unspecified type K90.9 579.9 3. Vitamin D deficiency E55.9 268.9 4. Abnormal blood level of iron R79.0 790.6 5. Fatigue, unspecified type R53.83 780.79 Class 3 Severe Obesity (BMI >=40). Obesity-related health conditions include the following: see above. Obesity is improving with treatment. BMI is is above average; BMI management plan is completed. We discussed see below. Plan: Doing well. Continue protein 100+g/day. Increase exercise/activity as tolerated. Bariatric labs ordered. Continue vitamins, adjustments pending lab results. Continue to avoid ASA/NSAIDs/tobacco/steroids for life. Call w/ problems/concerns. The patient was instructed to follow up in 3 months, sooner if needed. I spent 30 minutes caring for Radha on this date of service. This time includes time spent by me in the following activities: preparing for the visit, reviewing tests, obtaining and/or reviewing a separately obtained history, performing a medically appropriate examination and/or evaluation, counseling and educating the patient/family/caregiver, ordering medications, tests, or procedures, and documenting information in the medical record. Christine Connell APRN documented in this encounter Plan of Treatment Upcoming Encounters Date Type Department Care Team (Late st Contact Info) Description 07/23/2025 11:30 AM EDT Office Visit [facility] BARIATRIC SURGERY [address] [place] [address] [place] [address] Calderon Oconnor APRN [address] [address] documented as of this encounter Procedures Procedure Name Priority Date/Time Associated Diagnosis Comments METHYLMALONIC ACID, SERUM Routine 04/22/2025 2:02 PM EDT Morbid obesity with BMI of 50.0-59.9, adult Intestinal malabsorption, unspecified type Vitamin D deficiency Abnormal blood level of iron Fatigue, unspecified type COPPER, SERUM Routine 04/22/2025 2:02 PM EDT Morbid obesity with BMI of 50.0-59.9, adult Intestinal malabsorption, unspecified type Vitamin D deficiency Abnormal blood level of iron Fatigue, unspecified type VITAMIN B1, WHOLE BLOOD Routine 04/22/2025 2:02 PM EDT Morbid obesity with BMI of 50.0-59.9, adult Intestinal malabsorption, unspecified type Vitamin D deficiency Abnormal blood level of iron Fatigue, unspecified type ZINC Routine 04/22/2025 2:02 PM EDT Morbid obesity with BMI of 50.0-59.9, adult Intestinal malabsorption, unspecified type Vitamin D deficiency Abnormal blood level of iron Fatigue, unspecified type VITAMIN A Routine 04/22/2025 2:02 PM EDT Morbid obesity with BMI of 50.0-59.9, adult Intestinal malabsorption, unspecified type Vitamin D deficiency Abnormal blood level of iron Fatigue, unspecified type VITAMIN K1 Routine 04/22/2025 2:02 PM EDT Morbid obesity with BMI of 50.0-59.9, adult Intestinal malabsorption, unspecified type Vitamin D deficiency Abnormal blood level of iron Fatigue, unspecified type VITAMIN D,25-HYDROXY Routine 04/22/2025 2:02 PM EDT Morbid obesity with BMI of 50.0-59.9, adult Intestinal malabsorption, unspecified type Vitamin D deficiency Abnormal blood level of iron Fatigue, unspecified type PROTIME-INR Routine 04/22/2025 2:02 PM EDT Morbid obesity with BMI of 50.0-59.9, adult Intestinal malabsorption, unspecified type Vitamin D deficiency Abnormal blood level of iron Fatigue, unspecified type CBC AND DIFFERENTIAL Routine 04/22/2025 2:02 PM EDT Morbid obesity with BMI of 50.0-59.9, adult Intestinal malabsorption, unspecified type Vitamin D deficiency Abnormal blood level of iron Fatigue, unspecified type VITAMIN E Routine 04/22/2025 2:02 PM EDT Morbid obesity with BMI of 50.0-59.9, adult Intestinal malabsorption, unspecified type Vitamin D deficiency Abnormal blood level of iron Fatigue, unspecified type PREALBUMIN Routine 04/22/2025 2:02 PM EDT Morbid obesity with BMI of 50.0-59.9, adult Intestinal malabsorption, unspecified type Vitamin D deficiency Abnormal blood level of iron Fatigue, unspecified type PHOSPHORUS Routine 04/22/2025 2:02 PM EDT Morbid obesity with BMI of 50.0-59.9, adult Intestinal malabsorption, unspecified type Vitamin D deficiency Abnormal blood level of iron Fatigue, unspecified type PTH, INTACT Routine 04/22/2025 2:02 PM EDT Morbid obesity with BMI of 50.0-59.9, adult Intestinal malabsorption, unspecified type Vitamin D deficiency Abnormal blood level of iron Fatigue, unspecified type MAGNESIUM Routine 04/22/2025 2:02 PM EDT Morbid obesity with BMI of 50.0-59.9, adult Intestinal malabsorption, unspecified type Vitamin D deficiency Abnormal blood level of iron Fatigue, unspecified type IRON Routine 04/22/2025 2:02 PM EDT Morbid obesity with BMI of 50.0-59.9, adult Intestinal malabsorption, unspecified type Vitamin D deficiency Abnormal blood level of iron Fatigue, unspecified type FOLATE Routine 04/22/2025 2:02 PM EDT Morbid obesity with BMI of 50.0-59.9, adult Intestinal malabsorption, unspecified type Vitamin D deficiency Abnormal blood level of iron Fatigue, unspecified type FERRITIN Routine 04/22/2025 2:02 PM EDT Morbid obesity with BMI of 50.0-59.9, adult Intestinal malabsorption, unspecified type Vitamin D deficiency Abnormal blood level of iron Fatigue, unspecified type COMPREHENSIVE METABOLIC PANEL Routine 04/22/2025 2:02 PM EDT Morbid obesity with BMI of 50.0-59.9, adult Intestinal malabsorption, unspecified type Vitamin D deficiency Abnormal blood level of iron Fatigue, unspecified type documented in this encounter Results * Zinc (04/22/2025 2:02 PM EDT) Zinc 73 44 - 115 ug/dL [facility] Comment:Detection Limit = 5 Blood 04/22/2025 2:02 PM EDT 04/22/[address] [facility] (AMBULATORY) - 04/26/2025 10:09 AM EDT Test(s) 475218-Fcbe, Plasma or Serum was developed and its performance characteristics determined by [facility]. It has not been cleared or approved by the Food and Drug Administration. Performed at: 02 - [address] [id number] Vet Tech: Maria Victoria Reed MD, Phone: [phone] Patient Fasting: N Christine Connell APRN LAB BLOOD ORDERABLES Final Res ult [facility] (AMBULATORY) [address] [place] [address], [facility] [address] [place] [address], [place] [phone] * Vitamin K1 (04/22/2025 2:02 PM EDT) Vitamin K 1.31 0.10 - 2.20 ng/mL [facility] Blood 04/22/2025 2:0 2 PM EDT 04/22/2025 [facility] - 04/26/2025 10:09 AM EDT Test(s) 134827-Bbowxrn K1 was developed and its performance characteristics determined by [facility]. It has not been cleared or approved by the Food and Drug Administration. Performed at: 02 - [facility] [id number] Vet Tech: Maria Victoria Reed MD, Phone: [phone] Patient Fasting: N Christine Connell APRN LAB BLOOD ORDERABLES Final Res ult Performing Organization Address [facility] Co de Phone Number [facility] ([facility]) [address] [place] [address], [facility] [address] [place] [address], * Vitamin E (04/22/2025 2:02 PM EDT) [facility] Vitamin E (Alpha Tocopherol) 16.6 7.0 - 25.1 mg/L [facility] Vitamin E (Gamma Tocopherol) 1.1 0.5 - 5.5 mg/L [facility] Comment: Reference intervals for alpha and gamma-tocopherol determined from National Health and Nutrition Examination Survey, 4719-8677. Individuals with alpha-tocopherol levels less than 5.0 mg/L are considered vitamin E deficient. Blood 04/22/2025 2:02 PM EDT 04/22/2025 [facility] - 04/26/2025 10:09 AM EDT Test(s) 050945-Lxgayhm E(Alpha Tocopherol); 502101- Vitamin E(Gamma Tocopherol) was developed and its performance characteristics determined by [facility]. It has not been cleared or approved by the Food and Drug Administration. Performed at: 02 - [address] [id number] Vet Tech: Maria Victoria Reed MD, Phone: [phone] Patient Fasting: N us Christine Connell APRN LAB BLOOD ORDERABLES Final Res ult Performing Organization Address [facility]/ZIP Co de Phone Number [facility] (AMBULATORY) [address] [place] [address], [facility] [address] [place] [address], * Vitamin D,25-Hydroxy (04/22/2025 2:02 PM EDT) 25 Hydroxy, Vitamin D 57.6 30.0 - 100.0 ng/mL [facility] Comment: Vitamin D deficiency has been defined by the Geraldine of Medicine and an Endocrine Society practice guideline as a level of serum 25-OH vitamin D less than 20 ng/mL (1,2). The Endocrine Society went on to further define vitamin D insufficiency as a level between 21 and 29 ng/mL (2). 1. IOM (Geraldine of Medicine). 2010. Dietary reference intakes for calcium and D. [place]: The National Academies Press. 2. Feli MF, Hollie BRADFORD, Xavier LEONE, et al. Evaluation, treatment, and prevention of vitamin D deficiency: an Endocrine Society clinical practice guideline. JCEM. 2010; 96(7):1911-30. Blood 04/22/2025 2:02 PM EDT 04/22/2025 Narrative [facility] (AMBULATORY) - 04/26/2025 10:09 AM EDT Performed at: 01 - [address] [id number] Vet Tech: John Warren PhD, Phone: [phone] Patient Fasting: N Christine Connell APRN LAB BLOOD ORDERABLES Final Res ult [facility] (AMBULATORY) [address] [place] [address], [facility] [address] [place] [address], * Vitamin B1, Whole Blood (04/22/2025 2:02 PM EDT) Vitamin B1, Whole Blood 145.5 66.5 - 200.0 nmol/L [facility] Blood 04/22/2025 2:02 PM EDT 04/22/[address] [facility] (AMBULATORY) - 04/26/2025 10:09 AM EDT Test(s) 807060-Pag. B1, Whole Blood was developed and its performance characteristics determined by [email or web address]. It has not been cleared or approved by the Food and Drug Administration. Performed at: 02 - [address] [id number] Vet Tech: Maria Victoria Reed MD, Phone: [phone] Patient Fasting: N Christine Connell ORDER WORKER LAB BLOOD ORDERABLES Final Res ult Performing Organization Address [facility] Co de Phone Number [facility] ([facility]) [address] [place] [address], [facility] [address] [place] [address], * Vitamin A (04/22/2025 2:02 PM EDT) [facility] Vitamin A 57.2 20.1 - 62.0 ug/dL [facility] Comment: Reference intervals for vitamin A determined from [facility] internal studies. Individuals with vitamin A less than 20 ug/dL are considered vitamin A deficient and those with serum concentrations less than 10 ug/dL are considered severely deficient. This test was developed and its performance characteristics determined by [facility]. It has not been cleared or approved by the Food and Drug Administration. Blood 04/22/2025 2:02 PM EDT 04/22/2025 Narrative [facility] (AMBULATORY) - 04/26/2025 10:09 AM EDT Performed at: 02 - [address] [id number] Vet Tech: Maria Victoria Reed MD, Phone: [phone] Patient Fasting: N Christine Connell ORDER WORKER LAB BLOOD ORDERABLES Final Res ult Performing Organization Address [facility] Co de Phone Number [facility] ([facility]) [address] [place] [address], [facility] [address] [place] [address], [place] [phone] * (ABNORMAL) PTH, Intact (04/22/2025 2:02 PM EDT) PTH, Intact 156(H) 15 - 65 pg/mL [facility] Blood 04/22/2025 2:02 PM EDT 04/22/2025 [facility] (AMBULATORY) - 04/26/2025 10:09 AM EDT Performed at: - [address] [id number] Vet Tech: John Warren PhD, Phone: [phone] Patient Fasting: N us Christine Connell APRN LAB BLOOD ORDERABLES Final Res ult Performing Organization Address [facility]/ZIP Co de Phone Number [facility] ([facility]) [address] [place] [address], [place] [phone] [facility] [address] [place] [address], [place] [phone] * Protime-INR (04/22/2025 2:02 PM EDT) Pathologist [facility] INR 1.0 0.9 - 1.2 [facility] Comment: Reference interval is for non-anticoagulated patients. Suggested INR therapeutic range for Vitamin K antagonist therapy: Standard Dose (moderate intensity therapeutic range): 2.0 - 3.0 Higher intensity therapeutic range 2.5 - 3.5 Protime 10.8 9.1 - 12.0 sec [facility] Blood 04/22/2025 2:02 PM EDT 04/22/2025 [facility]) - 04/26/2025 10:09 AM EDT Performed at: - [address] [id number] Vet Tech: John Warren PhD, Phone: [phone] Patient Fasting: N us Christine Connell APRN LAB BLOOD ORDERABLES Final Res ult Performing Organization Address City/[facility]/ZIP Co de Phone Number [facility] ([facility]) [address] [place] [address], [place] [phone] [facility] [address] [place] [address], [place] [phone] * Prealbumin (04/22/2025 2:02 PM EDT) Prealbumin 26 12 - 34 mg/dL [facility] Blood 04/22/2025 2:02 PM EDT 04/22/2025 Narrative [facility] ([facility]) - 04/26/2025 10:09 AM EDT Performed at: - [facility] [address] [place] [id number] Vet Tech: John Warren PhD, Phone: [phone] Patient Fasting: N us Christine Connell APRN LAB BLOOD ORDERABLES Final Res ult Performing Organization Address [facility]/ZIP Co de Phone Number [facility] ([facility]) [address] [place] [address], [place] [phone] [facility] [address] [place] [address], [place] [phone] * Phosphorus (04/22/2025 2:02 PM EDT) Phosphorus 3.8 3.0 - 4.3 mg/dL [facility] Blood 04/22/2025 2:02 PM EDT 04/22/2025 Narrative [facility] ([facility]) - 04/26/2025 10:09 AM EDT Performed at: - [facility] [address] [place], [place] [id number] Vet Tech: John Warren PhD, Phone: [phone] Patient Fasting: N us Christine Connell APRN LAB BLOOD ORDERABLES Final Res ult Performing Organization Address City/[facility]/ZIP Co de Phone Number [facility] ([facility]) [address] [place] [address], [place] [phone] [facility] [address] [place] [address], [place] [phone] * Methylmalonic Acid, Serum (04/22/2025 2:02 PM EDT) Methylmalonic Acid 222 0 - 378 nmol/L [facility] Blood 04/22/2025 2:02 PM EDT 04/22/2025 [facility] - 04/26/2025 10:09 AM EDT Test(s) 973804-Iewyumumhxkqk Acid, Serum was developed and its performance characteristics determined by [facility]. It has not been cleared or approved by the Food and Drug Administration. Performed at: - [address] [id number] Vet Tech: Maria Victoria Reed MD, Phone: [phone] Patient Fasting: N Christine Connell [facility] LAB BLOOD ORDERABLES Final Res ult Performing Organization Address [facility]/ZIP Co de Phone Number [facility] (AMBULATORY) [address] [place] [address], [facility] [address] [place] [address], * Magnesium (04/22/2025 2:02 PM EDT) Magnesium 2.2 1.6 - 2.3 mg/dL [facility] Blood 04/22/2025 2:02 PM EDT 04/22/2025 [facility] - 04/26/2025 10:09 AM EDT Performed at: - [facility] [address] [place], [place] [id number] Vet Tech: John Warren PhD, Phone: [phone] Patient Fasting: N Christine Connell ORDER WORKER LAB BLOOD ORDERABLES Final Res ult Performing Organization Address City/[facility]/ZIP Co de Phone Number [facility] (AMBULATORY) [address] [place] [address], [facility] [address] [place] [phone], * Iron (04/22/2025 2:02 PM EDT) Iron 51 27 - 159 ug/dL [facility] Blood 04/22/2025 2:02 PM EDT 04/22/[address] [facility] (AMBULATORY) - 04/26/2025 10:09 AM EDT Performed at: - [facility] [address] [place], [place] [id number] Vet Tech: John Warren PhD, Phone: [phone] Patient Fasting: N Christine Connell ORDER WORKER LAB BLOOD ORDERABLES Final Res ult Performing Organization Address [facility] Co de Phone Number [facility]) [address] [place] [address], [facility] [address] [place] [address], [place] [phone] * Folate (04/22/2025 2:02 PM EDT) Pathologist [facility] Folate 14.7 >3.0 ng/mL [facility] Comment: A serum folate concentration of less than 3.1 ng/mL is considered to represent clinical deficiency. Blood 04/22/2025 2:02 PM EDT 04/22/[address] [facility] (AMBULATORY) - 04/26/2025 10:09 AM EDT Performed at: - [facility] [address] [place], [place] [id number] Vet Tech: John Warren PhD, Phone: [phone] Patient Fasting: N Christine Connell APRN LAB BLOOD ORDERABLES Final Res ult Performing Organization Address City/[facility]/ZIP Co de Phone Number [facility] [address] [place] [address], [place] [phone] [facility] [address] [place] [address], [place] [phone] * (ABNORMAL) Ferritin (04/22/2025 2:02 PM EDT) Ferritin 12(L) 15 - 150 ng/mL [facility] Blood 04/22/2025 2:02 PM EDT 04/22/[address] [facility] (AMBULATORY) - 04/26/2025 10:09 AM EDT Performed at: - [facility] [id number] Vet Tech: John Warren PhD, Phone: [phone] Patient Fasting: N Christine Connell APRN LAB BLOOD ORDERABLES Final Res ult Performing Organization Address [facility] [facility] Co de Phone Number [facility] [address] [place] [address], [place] [phone] [facility] [address] [place] [address], [place] [phone] * (ABNORMAL) Copper, Serum (04/22/2025 2:02 PM EDT) Copper 172(H) 80 - 158 ug/dL [facility] Comment:Detection Limit = 5 Blood 04/22/2025 2:02 PM EDT 04/22/[address] [facility] (AMBULATORY) - 04/26/2025 10:09 AM EDT Test(s) [id number], Serum or Plasma was developed and its performance characteristics determined by [facility]. It has not been cleared or approved by the Food and Drug Administration. Performed at: - [address] [id number] Vet Tech: Maria Victoria Reed MD, Phone: [phone] Patient Fasting: N Christine Connell ORDER WORKER LAB BLOOD ORDERABLES Final Res ult Performing Organization Address [facility]/ZIP Co de Phone Number [facility] [address] [place] [address], [place] [phone] [facility] [address] [place] [address], [place] [phone] * (ABNORMAL) Comprehensive Metabolic Panel (04/22/2025 2:02 PM EDT) Glucose 91 70 - 99 mg/dL [facility] BUN 19 6 - 24 mg/dL [facility] Creatinine 0.85 0.57 - 1.00 mg/dL [facility] EGFR Result 84 >59 mL/min/1.7 3 [facility] BUN/Creatinine Ratio 22 9 - 23 [facility] Sodium 142 134 - 144 mmol/L [facility] Potassium 3.9 3.5 - 5.2 mmol/L [facility] Chloride 102 96 - 106 mmol/L [facility] Total CO2 21 20 - 29 mmol/L [facility] Calcium 12.3(H) 8.7 - 10.2 mg/dL [facility] Total Protein 7.5 6.0 - 8.5 g/dL [facility] Albumin 4.5 3.9 - 4.9 g/dL [facility] Globulin 3.0 1.5 - 4.5 g/dL [facility] Total Bilirubin 0.9 0.0 - 1.2 mg/dL [facility] Alkaline Phosphatase 222(H) 44 - 121 IU/L [facility] AST (SGOT) 37 0 - 40 IU/L [facility] ALT (SGPT) 54(H) 0 - 32 IU/L [facility] Blood 04/22/2025 2:02 PM EDT 04/22/2025 Narrative [facility] - 04/26/2025 10:09 AM EDT Performed at: 01 - [address] [id number] Vet Tech: John Warren PhD, Phone: [phone] Patient Fasting: N us Christine Connell APRN LAB BLOOD ORDERABLES Final Res ult [facility] (AMBULATORY) [address] [place] [address], [place] [phone] [facility] [address] [place] [address], * (ABNORMAL) CBC & Differential (04/22/2025 2:02 PM EDT) WBC 7.8 3.4 - 10.8 x10E3/uL [facility] RBC 5.13 3.77 - 5.28 x10E6/uL [facility] Hemoglobin 13.6 11.1 - 15.9 g/dL [facility] Hematocrit 44.6 34.0 - 46.6 % [facility] MCV 87 79 - 97 fL [facility] MCH 26.5(L) 26.6 - 33.0 pg [facility] MCHC 30.5(L) 31.5 - 35.7 g/dL [facility] RDW 15.1 11.7 - 15.4 % [facility] Platelets 382 150 - 450 x10E3/uL [facility] Neutrophil Rel % 59 Not Estab. % [facility] Lymphocyte Rel % 32 Not Estab. % [facility] Monocyte Rel % 7 Not Estab. % [facility] Eosinophil Rel % 1 Not Estab. % [facility] Basophil Rel % 1 Not Estab. % [facility] Neutrophils Absolute 4.6 1.4 - 7.0 x10E3/uL [facility] Lymphocytes Absolute 2.5 0.7 - 3.1 x10E3/uL [facility] Monocytes Absolute 0.5 0.1 - 0.9 x10E3/uL [facility] Eosinophils Absolute 0.1 0.0 - 0.4 x10E3/uL [facility] Basophils Absolute 0.0 0.0 - 0.2 x10E3/uL [facility] Immature Granulocyte Rel % 0 Not Estab. % [facility] Immature Grans Absolute 0.0 0.0 - 0.1 x10E3/uL [facility] Blood 04/22/2025 2:02 PM EDT 04/22/2025 Narrative [facility] ([facility]) - 04/26/2025 10:09 AM EDT Performed at: 01 - [facility] [id number] Vet Tech: John Warren PhD, Phone: [phone] Patient Fasting: N Christine Connell APRN LAB BLOOD ORDERABLES Final Res ult [facility] ([facility]) [address] [place] [address], [place] [phone] [facility] [address] [place] [address], [place] [phone] documented in this encounter Visit Diagnoses Diagnosis Morbid obesity with BMI of 50.0-59.9, adult- Primary Intestinal malabsorption, unspecified type Vitamin D deficiency Abnormal blood level of iron Other abnormal blood chemistry Fatigue, unspecified type documented in this encounter Care Teams Sliver Handler Relationship Specialty Start Date End Date Rito Bobby DO [address] [place] [address] PCP - General Internal Medicine 12/17/24 documented as of this encounter
--- OUTSIDE RECORDS SUMMARY | 2025-06-09 09:42 | XMS_ITS | Encounter Summary ---
Author Organization [facility] Address [address] [place] [address] Care Team Providers Care Bryologist Name Role Phone KanuRito zambrano Gama Primary Care Provider + Encounter Details Date Type Department Care Team (Late st Contact Info) Description 04/26/2025 Results Follow-Up [facility] BARIATRIC SURGERY [address] [facility] [address] [place] [address] Christine Connell APRN [address] [facility] [address] [place] [address] Social History Tobacco Use Types Packs/Day Years [...] or training? Not on file Preferred Language Lao 10/15/2024 Comments No Sex and Gender Information Value Date Recorded Sex Assigned at Female 04/16/2025 9:07 AM EDT Legal Sex Female 10:48 AM EDT Gender Identity Not on file Sexual Orientation Straight 04/16/2025 9: 07 AM EDT documented as of this encounter Plan of Treatment Upcoming Encounters Date Type Department Care Team (Late st Contact Info) Description 07/23/2025 11:30 AM EDT Office Visit [facility] BARIATRIC SURGERY [address] [place] [address] Calderon Oconnor, [employer] [address] [place] [address] documented as of this encounter Visit Diagnoses Not on filedocumented in this encounter Care Teams Bryologist Relationship Specialty Start Date End Date Rito Bobby DO [address] [place] [address] PCP - General Internal Medicine 12/17/24 documented as of this encounter
--- OUTSIDE RECORDS SUMMARY | 2025-06-09 09:42 | XMS_ITS | Encounter Summary ---
Author Organization [facility] Address [address] [place] [address] Care Team Providers Care Deckhand Fishing Vessel Name Role Phone Phuong Perez MD Primary Care Provider [phone] Reason for Referral * Consultation (Routine) - Closed Specialty Diagnoses / Procedures Referred By Contact Referred To Contact Gynecology / Obstetrics and Gynecology Diagnoses Abnormal uterine bleeding Phuong Perez MD [address] [address] Phone: tel: fax: Referral ID Status Reason Start Date Expiration Date V isits Requested Visits Authorized [id number] Closed Specialty Services Required 11/12/2023 05/13/2025 1 1 Encounter Details Date Type Department Care Team (Late st Contact Info) Description 11/12/2023 Community [facility] [address] [place] [address] Phuong Perez MD [address] [place] [address] Abnormal uterine bleeding (Primary Dx) Social History Tobacco Use Types Packs/Day Years Used Date Smoking Tobacco: Never Assessed Comments Unknown Sex and Gender Information Value Date Recorded Sex Assigned at Not on file Legal Sex Female 8:19 PM EDT Gender Identity Not on file Sexual Orientation Not on file documented as of this encounter Plan of Treatment Scheduled Referrals Name Type Priority Associated Diagnoses Order Schedule Ambulatory referral to Gynecology Outpatient Referral Routine Abnormal uterine bleeding 1 Occurrences starting 11/12/2023 until 05/12/2025 documented as of this encounter Visit Diagnoses Diagnosis Abnormal uterine bleeding- Primary Unspecified disorder of menstruation and other abnormal bleeding from female genital tract documented in this encounter Care Teams Deckhand Fishing Vessel Relationship Specialty Start Date End Date Phuong Perez MD PCP - General 11/13/23 documented as of this encounter
--- OUTSIDE RECORDS SUMMARY | 2025-06-09 09:42 | XMS_ITS | Clinical Summary ---
[facility] Address [address] [place] [address] Care Team Providers Care Fastener Technologist Name Role Phone KanuRito zambrano Gama Primary Care Provider + Allergies Active Allergy Reactions Criticality Noted Date Comments Lisinopril Anaphylaxis High 10/22/2023 Medications * This document contains information received from the source organization and may not represent a complete record from that organization. polyethylene glycol (MiraLax) 17 g packet Take 17 g by mouth Daily As Needed. Active Needle, Disp, 25G X 1 misc Inject 1 each as directed Daily. For B12 injections 14 each 5 Active Cholecalciferol 1.25 MG (80993 UT) tablet Take 1 tablet by mouth 2 (Two) Times a Week. 24 tablet 5 Active chlorthalidone (HYGROTON) 25 MG tablet Take 1 tablet by mouth Daily. Active Semaglutide-Bowen ght Management (Wegovy) 0.25 MG/0.5ML solution auto-injector Inject 0.5 mL under the skin into the appropriate area as directed. weekly Active potassium chloride (KLOR-CON M20) 20 MEQ CR tablet Take 1 tablet by mouth 2 (Two) Times a Day. Active Active Problems Problem Noted Date Diagnosed Date Body mass index (BMI) of 60.0-69.9 in adult 12/2023 Personal history of gastric bypass 09/29/2024 Morbid obesity with body mas s index (BMI) of 60.0 to 69.9 in adult 09/29/2024 Weight gain following gastric bypass surgery 02/2024 Dyspepsia 05/28/2024 Dysfunctional uterine bleeding 07/20/2016 Encounters Date Type Department Care Team Description 04/26/2025 Results Follow-Up [facility] BARIATRIC SURGERY [address] [place] [address] Christine Connell APRN 04/22/2025 2:00 PM EDT Office Visit [facility] BARI[facility]ERY [address] [place] [address] Christine Connell, MARKETING CONTENT MANAGER Morbid obesity with BMI of 50.0-59.9, adult (Primary Dx); Intestinal malabsorption, unspecified type; Vitamin D deficiency; Abnormal blood level of iron; Fatigue, unspecified type 04/22/2025 Travel from Last 3 Months Immunizations Immunization Administration Dates Next Due Influenza Injectable Mdck Pf Quad 09/08/2021 Family History Medical History Relation Name Comments Heart attack Brother Garo Morocho Harp Hypertension Brother Garo Morocho Harp Obesity Brother Garo Morocho Harp Arrhythmia Father Chris Ray Harp Diabetes Father Chris Ray Harp Heart attack Father Chris Ray Harp Heart disease Father Chris Ray Harp Hypertension Father Chris Ray Harp Obesity Father Chris Ray Harp Sleep apnea Father Chris Ray Harp Heart attack Maternal Grandfather Garo Laigli Hypertension Maternal Grandfather Garo Laigli Stomach cancer Maternal Grandfather Garo Laigli Stroke Maternal Grandfather Garo Laigli Hypertension Maternal Grandmother Shannan [place] Lung cancer Maternal Grandmother Shannan [place] Diabetes type II Mother Anita True Heart attack Mother Anita True Heart disease Mother Anita True Hypertension Mother Anita True Breast cancer Paternal Grandmother Haylie Rodrick Becr aft Diabetes Paternal Grandmother Ivrica Rodrick Becra ft Heart attack Paternal Grandmother Ivriac Rodrick Becra ft Heart disease Paternal Grandmother Ivrica Rodrick Becr aft Hypertension Paternal Grandmother Haylie Mensah Becra ft Obesity Paternal Grandmother Haylie Mensah Becra ft Obesity Sister Relation Name Status Comments Brother Garo Henderson Father Chris [place] Maternal Grandfather Garo Andrea Maternal Grandmother Shannan Fregoso Mother Anita Iqbal Paternal Grandfather Paternal Grandmother Haylie Goldsteinft Sister Social History Tobacco Use Types Packs/Day Years [...] or training? Not on file Preferred Language Barbadian 10/15/2024 Comments No Sex and Gender Information Value Date Recorded Sex Assigned at Female 04/16/2025 9:07 AM EDT Legal Sex Female 10:48 AM EDT Gender Identity Not on file Sexual Orientation Straight 04/16/2025 9: 07 AM EDT Last Filed Vital Signs Vital Sign Reading [...] Mass Index 51.1 04/22/2025 1:30 PM EDT Plan of Treatment Upcoming Encounters Date Type Department Care Team (Late st Contact Info) Description 07/23/2025 11:30 AM EDT Office Visit [facility] BARI[facility] SUR[facility]ERY [address] [place] [address] Calderon Oconnor, ALLYSSA [address] [place] [address] Health Maintenance Due Date Last Done Comments Annual Gynecologic Pelvic an d Breast Exam 1975 TDAP/TD VACCINES (1 - Tdap) 1995 COLOGUARD 2021 COLON CANCER SCREENING 5 YEA R SIGMOIDOSCOPY 2021 COLONOSCOPY 2021 COLORECTAL CANCER SCREENING 2021 CT COLONOGRAPHY 2021 FECAL OCCULT BLOOD TEST 2021 FIT Testing (1 year) 2021 MAMMOGRAM 08/16/2022 08/16/2020 ANNUAL PHYSICAL 10/22/2023 HEPATITIS C SCREENING 10/22/2023 COVID-19 Vaccine (4 - 2023-2 5 season) 2024 09/08/2021, 01/19/2021, 12/22/2020 LIPID PANEL 04/22/2025 04/22/2024 INFLUENZA VACCINE 07/28/2025 09/08/2021 PAP SMEAR 10/22/2026 10/22/2023 Pneumococcal Vaccine 0-49 Aged Out No longer eligible based on patient's age to complete this topic Medical Devices Implanted Type Area Manager Ct Device Identifier Shelf Expiration Date Model / Serial / Lot Reload Stplr [place] Flex Gst Stnd 60 Wht - [id number] Implanted:Qty : 4 on 10/22/2024 by Ezequiel Beverly MD at [facility] Implant N/A: Abdomen [employer] DIV OF J AND J 12/25/2026 [id number] / / [id number] Dev Contrl Tiss Stratafix Spiral Pds Pls 3/0 0 15cm Silvana - [id number] Implanted:Qty : 1 on 10/22/2024 by Ezequiel Beverly MD at [facility] Implant N/A: Abdomen [employer] DIV OF J AND J 02/24/2026 [id number] / / [id number] Dev Contrl Tiss Stratafix Spiral Pds Pls 3/0 0 15cm Silvana - [id number] Implanted:Qty : 1 on 10/22/2024 by Ezequiel Beverly MD at [facility] Implant N/A: Abdomen [employer] DIV OF AND J 02/24/2026 [id number] / / [id number] Dev Cls Wnd Vloc/Pbt Margret Nonabs 1/2cir Sz2/0 26mm 15cm Krishna - [id number] Implanted:Qty : 3 on 10/22/2024 by Ezequiel Beverly MD at [facility] Implant N/A: Abdomen COVIDIEN 03/27/2027 [id number] / / [id number] Stplr Tiss [id number] Lng [id number] Strl 1p/U - [id number] Implanted:Qty : 1 on 10/22/2024 by Ezequiel Beverly MD at [facility] Implant N/A: Abdomen [employer] DIV OF AND J 12/25/2026 [id number] / / [id number] Procedures Procedure Name Priority Date/Time Associated Diagnosis Comments CBC AND DIFFERENTIAL Routine 04/22/2025 2:02 PM [...] blood level of iron Fatigue, unspecified type METHYLMALONIC ACID, SERUM Routine 04/22/2025 2:02 PM [...] blood level of iron Fatigue, unspecified type LIPID PANEL Routine 04/22/2024 10:43 AM EDT Body mass index (BMI) of 50-59.9 in adult Morbid obesity Essential hypertension Osteoarthritis, unspecified osteoarthritis type, unspecified site Fatigue, unspecified type Iron deficiency anemia due to chronic blood loss Excessive bleeding in premenopausal period Peripheral edema Chemical pneumonitis Preoperative clearance Dyspepsia LIQUID-BASED PAP SMEAR WITH HPV GENOTYPING REGARDLESS OF INTERPRETATION, [facility] (NETTA,COR,MAD) Routine 10/22/2023 2:35 PM EST Menorrhagia with regular cycle SCANNED - MAMMO 08/16/2020 from Last 3 Months or Most Recently Relevant to Health Maintenance Results * Methylmalonic Acid, Serum (04/22/2025 2:02 PM EDT) Methylmalonic Acid 222 0 - 378 nmol/L [facility] Blood 04/22/2025 2:02 PM EDT 04/22/2025 Narrative [facility] (AMBULATORY) - 04/26/2025 10:09 AM EDT Test(s) 754340-Qwihftzwagrdd Acid, Serum was developed and its performance characteristics determined by [facility]. It has not been cleared or approved by the Food and Drug Administration. Performed at: - [id number] Supervisor: Maria Victoria Reed MD, Phone: [phone] Patient Fasting: N us Christine Connell APRN LAB BLOOD ORDERABLES Final Res ult [facility] (AMBULATORY) [address] [place] [address], [place] [phone] [facility] [address] [place] [address], [place] [phone] * (ABNORMAL) Copper, Serum (04/22/2025 2:02 PM EDT) Copper 172(H) 80 - 158 ug/dL [facility] Comment:Detection Limit = 5 Blood 04/22/2025 2:02 PM EDT 04/22/2025 Narrative [facility] (AMBULATORY) - 04/26/2025 10:09 AM EDT Test(s) 729634-Wkkxzp, Serum or Plasma was developed and its performance characteristics determined by [facility]. It has not been cleared or approved by the Food and Drug Administration. Performed at: 02 - [id number] Supervisor: Maria Victoria Reed MD, Phone: [phone] Patient Fasting: N Christine Connell APRN LAB BLOOD ORDERABLES Final Res ult Performing Organization Address [facility] Co de Phone Number [facility] [address] [place] [address], [place] [phone] [facility] [address] [place] [address], [place] [phone] * Vitamin B1, Whole Blood (04/22/2025 2:02 PM EDT) [facility] Vitamin B1, Whole Blood 145.5 66.5 - 200.0 nmol/L [facility] Blood 04/22/2025 2:02 PM EDT 04/22/2025 [facility] (AMBUL[facility]) - 04/26/2025 10:09 AM EDT Test(s) 045083-Gwr. B1, Whole Blood was developed and its performance characteristics determined by [facility]. It has not been cleared or approved by the Food and Drug Administration. Performed at: 02 - [id number] Supervisor: Maria Victoria Reed MD, Phone: [phone] Patient Fasting: N Christine Connell MARKETING CONTENT MANAGER LAB BLOOD ORDERABLES Final Res ult Performing Organization Address [facility] Co de Phone Number [facility]) [address] [place] [address], [place] [phone] [facility] [address] [place] [address], [place] [phone] * Zinc (04/22/2025 2:02 PM EDT) Zinc 73 44 - 115 ug/dL [facility] Comment:Detection Limit = 5 Blood 04/22/2025 2:02 PM EDT 04/22/2025 N[facility]ative [facility] - 04/26/2025 10:09 AM EDT Test(s) 942273-Zlks, Plasma or Serum was developed and its performance characteristics determined by [facility]. It has not been cleared or approved by the Food and Drug Administration. Performed at: - [id number] Supervisor: Maria Victoria Reed MD, Phone: [phone] Patient Fasting: N Christine Connellkatrin SPIVEY LAB BLOOD ORDERABLES Final Res ult Performing Organization Address [facility]/ZIP Co de Phone Number [facility] (AMBULATORY) [address] [place] [address], [facility] [address] [place] [address], [place] [phone] * Vitamin A (04/22/2025 2:02 PM EDT) Vitamin A 57.2 20.1 - 62.0 ug/dL [facility] Comment: Reference intervals for vitamin A determined from [facility] internal studies. Individuals with vitamin A less than 20 ug/dL are considered vitamin A deficient and those with serum concentrations less than 10 ug/dL are considered severely deficient. This test was developed and its performance characteristics determined by [facility]. It has not been cleared or approved by the Food and Drug Administration. Blood 04/22/2025 2:02 PM EDT 04/22/2025 [facility] (AMBUL[facility]) - 04/26/2025 10:09 AM EDT Performed at: 02 - [id number] Supervisor: Maria Victoria Reed MD, Phone: [phone] Patient Fasting: N [employer] MARKETING CONTENT MANAGER LAB BLOOD ORDERABLES Final Res ult Performing Organization Address [facility]/ZIP Co de Phone Number [facility] (AMBULATORY) [address] [place] [address], [facility] [address] [place] [address], * Vitamin K1 (04/22/2025 2:02 PM EDT) Vitamin K 1.31 0.10 - 2.20 ng/mL [facility] Blood 04/22/2025 2:02 PM EDT 04/22/2025 Narrative [facility] - 04/26/2025 10:09 AM EDT Test(s) 365781-Dmnfqlq K1 was developed and its performance characteristics determined by [facility]. It has not been cleared or approved by the Food and Drug Administration. Performed at: 02 - [id number] Supervisor: Maria Victoria Reed MD, Phone: [phone] Patient Fasting: N [facility] Connell MARKETING CONTENT MANAGER LAB BLOOD ORDERABLES Final Res ult Performing Organization Address City/[facility]/ZIP Co de Phone Number [facility] (AMBULATORY) [address] [place] [address], [facility] [address] [place] [address], * Vitamin D,25-Hydroxy (04/22/2025 2:02 PM EDT) 25 Hydroxy, Vitamin D 57.6 30.0 - 100.0 ng/mL [facility] Comment: Vitamin D deficiency has been defined by the Independence of Medicine and an Endocrine Society practice guideline as a level of serum 25-OH vitamin D less than 20 ng/mL (1,2). The Endocrine Society went on to further define vitamin D insufficiency as a level between 21 and 29 ng/mL (2). 1. IOM (Independence of Medicine). 2010. Dietary reference intakes for calcium and D. [place]: The National Academies Press. 2. Feli MF, Hollie BRADFORD, Xavier LEONE, et al. Evaluation, treatment, and prevention of vitamin D deficiency: an Endocrine Society clinical practice guideline. JCEM. 2010; 96(7):1911-30. Blood 04/22/2025 2:02 PM EDT 04/22/2025 Narrative [facility] (AMBULATORY) - 04/26/2025 10:09 AM EDT Performed at: 01 - [facility] [address] [place] [id number] Supervisor: John Warren PhD, Phone: [phone] Patient Fasting: N Christine Connell MARKETING CONTENT MANAGER LAB BLOOD ORDERABLES Final Res ult Performing Organization Address City/[facility]/ZIP Co de Phone Number [facility] (AMBUL[facility]) [address] [place] [address], [place] [phone] [facility] [address] [place] [address], [place] [phone] * Protime-INR (04/22/2025 2:02 PM EDT) [facility] INR 1.0 0.9 - 1.2 [facility] [...] 04/26/2025 10:09 AM EDT Performed at: - [facility] [address] [place] [id number] Supervisor: John Warren PhD, Phone: [phone] Patient Fasting: N Christine Connell MARKETING CONTENT MANAGER LAB BLOOD ORDERABLES Final Res ult Performing Organization Address City/[facility]/ZIP Co de Phone Number [facility] (AMBUL[facility]ORY) [address] [place] [address], [place] [phone] [facility] [address] [place] [address], * (ABNORMAL) CBC & Differential (04/22/2025 2:02 [...] 04/26/2025 10:09 AM EDT Performed at: - [address], [place], [place] [id number] Supervisor: John Warren PhD, Phone: [phone] Patient Fasting: N Christine Connell APRN LAB BLOOD ORDERABLES Final Res ult Performing Organization Address City/[facility]/ZIP Co de Phone Number [facility] [address] [place] [address], [facility] [address] [place] [address], * Vitamin E (04/22/2025 2:02 PM EDT) Vitamin E (Alpha Tocopherol) 16.6 7.0 - 25.1 mg/L [facility] Vitamin E (Gamma Tocopherol) 1.1 0.5 - 5.5 mg/L [facility] Comment: Reference intervals for alpha and gamma-tocopherol determined from National Health and Nutrition Examination Survey, 5426-0319. Individuals with alpha-tocopherol levels less than 5.0 mg/L are considered vitamin E deficient. Blood 04/22/2025 2:02 PM EDT 04/22/2025 Narrative [facility] - 04/26/2025 10:09 AM EDT Test(s) 389177-Dznygho E(Alpha Tocopherol); 513002- Vitamin E(Gamma Tocopherol) was developed and its performance characteristics determined by [facility]. It has not been cleared or approved by the Food and Drug Administration. Performed at: 02 - [id number] Supervisor: Maria Victoria Reed MD, Phone: [phone] Patient Fasting: N Christine Connell APRN LAB BLOOD ORDERABLES Final Res ult [facility] [address] [place] [address], [facility] [address] [place] [address], * Prealbumin (04/22/2025 2:02 PM EDT) Prealbumin 26 12 - 34 mg/dL [facility] Blood 04/22/2025 2:02 PM EDT 04/22/2025 Narrative [facility] (AM[facility]ATORY) - 04/26/2025 10:09 AM EDT Performed at: [address] [place] [id number] Supervisor: John Warren PhD, Phone: [phone] Patient Fasting: N Christine Connell MARKETING CONTENT MANAGER LAB BLOOD ORDERABLES Final Res ult Performing Organization Address [facility] Co de Phone Number [facility] (AMBUL[facility]ORY) [address] [place] [address], [place] [phone] [facility] [address] [place] [address], [place] [phone] * Phosphorus (04/22/2025 2:02 PM EDT) Phosphorus 3.8 3.0 - 4.3 mg/dL [facility] Blood 04/22/2025 2:02 PM EDT 04/22/2025 Narrative [facility] (AMBULATORY) - 04/26/2025 10:09 AM EDT Performed at: [address] [place] [id number] Supervisor: John Warren PhD, Phone: [phone] Patient Fasting: N Christine Connell APRN LAB BLOOD ORDERABLES Final Res ult Performing Organization Address [facility] Co de Phone Number [facility] (AMBUL[facility]ORY) [address] [place] [address], [place] [phone] [facility] [address] [place] [address], [place] [phone] * (ABNORMAL) PTH, Intact (04/22/2025 2:02 PM EDT) PTH, Intact 156(H) 15 - 65 pg/mL [facility] Blood 04/22/2025 2:02 PM EDT 04/22/2025 Narrative [facility] (AMBULATORY) - 04/26/2025 10:09 AM EDT Performed at: - [facility] [address] [place] [id number] Supervisor: John Warren PhD, Phone: [phone] Patient Fasting: N Christine Connell APRN LAB BLOOD ORDERABLES Final Res ult Performing Organization Address [facility]/ZIP Co de Phone Number [facility] (AMBUL[facility]ORY) [address] [place] [address], [facility] [address] [place] [address], * Magnesium (04/22/2025 2:02 PM EDT) Magnesium 2.2 1.6 - 2.3 mg/dL [facility] Blood 04/22/2025 2:02 PM EDT 04/22/2025 Narrative [facility] (AM[facility]ATORY) - 04/26/2025 10:09 AM EDT Performed at: - [id number] Supervisor: John Warren PhD, Phone: [phone] Patient Fasting: N Christine Connell APRN LAB BLOOD ORDERABLES Final Res ult Performing Organization Address [facility] Co de Phone Number [facility] (AMBUL[facility]ORY) [address] [place] [address], [facility] [address] [place] [address], * Iron (04/22/2025 2:02 PM EDT) Iron 51 27 - 159 ug/dL [facility] Blood 04/22/2025 2:02 PM EDT 04/22/2025 Narrative [facility] (AM[facility]) - 04/26/2025 10:09 AM EDT Performed at: - [id number] Supervisor: John Warren PhD, Phone: [phone] Patient Fasting: N Christine Connell APRN LAB BLOOD ORDERABLES Final Res ult Performing Organization Address [facility]/ZIP Co de Phone Number [facility] (AMBUL[facility]ORY) [address] [place] [address], [place] [phone] [facility] [address] [place] [address], [place] [phone] * Folate (04/22/2025 2:02 PM EDT) Pathologist [facility] Folate 14.7 >3.0 ng/mL [facility] Comment: A serum folate concentration of less than 3.1 ng/mL is considered to represent clinical deficiency. Blood 04/22/2025 2:02 PM EDT 04/22/2025 Narrative [facility] (AMBULATORY) - 04/26/2025 10:09 AM EDT Performed at: [id number] Supervisor: John Warren PhD, Phone: [phone] Patient Fasting: N Christine Connell APRN LAB BLOOD ORDERABLES Final Res ult Performing Organization Address City/[facility] Co de Phone Number [facility] [address] [place] [address], [place] [phone] [facility] [address] [place] [address], [place] [phone] * (ABNORMAL) Ferritin (04/22/2025 2:02 PM EDT) [facility] Ferritin 12(L) 15 - 150 ng/mL [facility] Blood 04/22/2025 2:02 PM EDT 04/22/2025 Narrative [facility] (AMBUL[facility]) - 04/26/2025 10:09 AM EDT Performed at: [id number] Supervisor: John Warren PhD, Phone: [phone] Patient Fasting: N us Christine Connell APRN LAB BLOOD ORDERABLES Final Res ult [facility] ([facility]BULATORY) [address] [place] [address], [facility] [address] [place] [address], * (ABNORMAL) Comprehensive Metabolic Panel (04/22/2025 2:02 PM EDT) [facility] Glucose 91 70 - 99 mg/dL [facility] [...] 04/22/2025 2:02 PM EDT 04/22/2025 Narrative [facility] (AMBULATORY) - 04/26/2025 10:09 AM EDT Performed at: 01 - [facility] [address] [facility], [place], [place] [id number] Supervisor: John Warren PhD, Phone: [phone] Patient Fasting: N Christine Connell MARKETING CONTENT MANAGER LAB BLOOD ORDERABLES Final Res ult Performing Organization Address City/[facility]/ZIP Co de Phone Number [facility] [address] [place] [address], [facility] [address] [place] [address], * (ABNORMAL) Lipid Panel (04/22/2024 10:43 AM EDT) Pathologist [facility] Total Cholesterol 265(H) 100 - 199 mg/dL [facility] Triglycerides 205(H) 0 - 149 mg/dL [facility] HDL Cholesterol 61 >39 mg/dL [facility] VLDL Cholesterol Sonu 38 5 - 40 mg/dL [facility] LDL Chol Calc (NIH) 166(H) 0 - 99 mg/dL [facility] Blood 04/22/2024 10:4 3 AM EDT 04/22/2024 Narrative [facility] - 04/23/2024 4:12 PM EDT Performed at: - [facility] [address] [place] [id number] Supervisor: John Warren PhD, Phone: [phone] Patient Fasting: N Imelda Jordan MD LAB BLOOD ORDERABLES Fin al Result Performing Organization Address [facility] Co de Phone Number [facility] (AMBULATORY) [address] [place] [address], [facility] [address] [place] [address], * LIQUID-BASED PAP SMEAR WITH HPV GENOTYPING REGARDLESS OF INTERPRETATION (NETTA,COR,MAD) (10/22/2023 2:35 PM EST) [facility] Reference Lab Report [facility] [address] [place] [address] or [phone] Hima Higginbotham M.D., Antichecking Iron Worker PATIENT NAME LABORATORY NO. [address] E[address]OR [id number] AGE SEX SSN CLIENT REF # [facility] 48 1975 F [id number] Yue LUIS OSBORNE REQUESTING [place] ATTENDING [place] [address] REGINA RAMIREZ DATE COLLECTED DATE RECEIVED DATE REPORTED 10/22/2023 10/22/2023 10/31/2023 ThinPrep Pap with Cytyc Imaging DIAGNOSIS: Negative for intraepithelial lesion or malignancy Multiple factors can influence accuracy of Pap tests; therefore, screening at regular intervals is necessary for early cancer detection. Professional interpretation rendered by Hima Higginbotham M.D., F.C.A.P. at [facility], [address] [place] [address]. RECOMMENDATION: Follow up as clinically appropriate SPECIMEN ADEQUACY: SATISFACTORY FOR EVALUATION Transformation zone is absent or insufficient. Partially obscuring blood and inflammation are present. Sparse cellularity, minimal number of squamous cells available for evaluation. SOURCE OF SPECIMEN: CERVICAL/ENDOCERV ICAL SLIDES: 1 CLINICAL HISTORY: Last pap 2019 negative Menorrhagia with regular cycle Tubal ligation HPV HR-HPV POOL: Negative The Aptima HPV assay is an in vitro nucleic acid amplification test for the qualitative detection of E6/E7 viral messenger RNA from 14 high risk types of HPV in cervical specimens. The high risk HPV types detected include: 16, 18, 31, 33, 35, 39, 45, 51, 52, 56, 58, 59, 66, 68 CHOCOLATE FINISHER OPERATOR: ANALI BERRY (ASCP) REVIEWED, DIAGNOSED AND ELECTRONICALLY SIGNED BY: Hima Higginbotham M.D., F.C.A.P. CPT CODES: [id number], [id number], [id number] 10/31/2023 12:44 PM EST [facility] ThinPrep Vial Cervix uteri structure / Unknown Collection / Unknown 10/22/2023 2:35 PM EST 10/22/2023 2:35 PM EST us Regina Ramirez MD PATHOLOGY/CYTOLOGY ORDERABLES F inal Result [facility]
[address] [place] [address], * SCANNED - MAMMO (08/16/2020) Anatomical Region Laterality Modality Other Regina Ramirez MD CHART REVIEW TABS Final Resu lt from Last 3 Months or Most Recently Relevant to Health Maintenance Insurance EMPLOYEE Advance Directives * CPR (Attempt to Resuscitate) (Latest Code Status on File) Date Activated Date Inactivated Comments 10/22/2024 9:34 AM 10/26/2024 3:19 PM Question Answer Comments Code Status (Patient has no pulse and is not breathing): CPR (Attempt to Resuscitate) Medical Interventions (Patie nt has pulse or is breathing): Full Support Level Of Support Discussed With: Patient Care Teams Fastener Technologist Relationship Specialty Start Date End Date Rito Bobby DO [address] [place] [id number] PCP - General Internal Medicine 12/17/24
--- OUTSIDE RECORDS SUMMARY | 2025-06-09 09:42 | XMS_ITS | Clinical Summary ---
Author Organization Healthcare Address [address] [place] [address] Care Team Providers Care Mental Hygiene Consultant Name Role Phone hPuong Perez MD Primary Care Provider [phone] Allergies Active Allergy Reactions Criticality Noted Date Comments Lisinopril Anaphylaxis High 10/22/2023 Medications amLODIPine (Norvasc) 5 MG tablet Take 1 tablet (5 mg) by mouth 1 (one) time each day. 10/09/2023 Active metoprolol succinate XL (Toprol-XL) 25 MG 24 hr tablet Take 1 tablet (25 mg) by mouth 1 (one) time each day. 10/09/2023 Active acetaminophen (Tylenol) 500 MG tablet Take 1 tablet (500 mg) by mouth every 6 (six) hours if needed. Active Active Problems Problem Noted Date Diagnosed Date Abnormal uterine bleeding (AUB) 07/27/2024 Adenomyosis 07/27/2024 Immunizations Immunization Administration Dates Next Due Influenza, injectable, MDCK, preservative free, quadrivalent 09/08/2021 Family History Medical History Relation Name Comments Heart attack Brother Diabetes type I Daughter Cardiac Devices Pacemaker Present Father Diabetes type II Father Cancer Maternal Grandfather Heart attack Maternal Grandfather Lung cancer Maternal Grandmother Heart Problem Mother Breast cancer Paternal Grandmother Relation Name Status Comments Brother Daughter Father Maternal Grandfather Maternal Grandmother Mother Paternal Grandmother Social History Tobacco Use Types Packs/Day Years Used Date Smoking Tobacco: Never Smokeless Tobacco: Never Tobacco Cessation:Counseling Given: Not Answered Alcohol Use Standard Drinks/Week Comments Not Currently 0 (1 standard drink = 0.6 oz pur e alcohol) Comments No Sex and Gender Information Value Date Recorded Sex Assigned at Not on file Legal Sex Female 8:19 PM EDT Gender Identity Not on file Sexual Orientation Not on file Last Filed Vital Signs Vital Sign Reading Time Taken Comments Blood Pressure 136/86 07/27/2024 1:23 PM EDT Pulse 101 07/27/2024 1:23 PM EDT Temperature 36.4 C (97.5 F) 07/27/2024 1:23 PM EDT Respiratory Rate 18 07/27/2024 1:23 PM EDT Oxygen Saturation 97% 07/27/2024 1:23 PM EDT Inhaled Oxygen Concentration - - Weight 150 kg (330 lb 11 oz) 07/27/2024 1:23 PM EDT Height 157.5 cm (5' 2 ) 07/27/2024 1:23 PM EDT Body Mass Index 60.48 07/27/2024 1:23 PM EDT Plan of Treatment Health Maintenance Due Date Last Done Comments [facility]-Depression Screening 1976 [facility]-HIV Screening 1976 [facility]-Hepatitis C Screening 1976 [facility]-/Child/Adol SDOH Screenings 1976 [facility]- SDOH Screenings 1994 [facility]-Adult SDOH Screenings 1994 [facility]-DTaP,Tdap,and Td Vaccine s (1 - Tdap) 1995 [facility]-Hepatitis B Vaccines (1 of 3 - 19+ 3-dose series) 1995 [facility]-HPV/Cotest 2006 CT Colonography 2021 Colonoscopy 2021 FIT-DNA 2021 FIT 2021 FOBT 2021 Sigmoidoscopy 2021 [facility]-Colorectal Cancer Screening 2021 [id number] Vaccine ( - season) 2024 09/08/2021, 01/19/2021, 12/22/2020 [facility]-Influenza Vaccine (#1) 2025 09/08/2021 [facility]-Zoster Vaccines (1 of 2) 2026 [facility]-Cervical Cancer Screening 10/22/2026 [facility]-Pap Smear 10/22/2026 10/22/2023 [facility]-Obesity Intervention Completed 024, 06/09/2024 HPV Vaccines Aged Out No longer eligi ble based on patient's age to complete this topic [facility]-HIB Vaccines Aged Out No longer e ligible based on patient's age to complete this topic [facility]-Hepatitis A Vaccines Aged Out No longer eligible based on patient's age to complete this topic [facility]-IPV Vaccines Aged Out No longer e ligible based on patient's age to complete this topic [facility]-Pneumococcal Vaccine: Pediatrics (0 to 5 Years) and At-Risk Patients (6 to 49 Years) Aged Out No longer eligible b ased on patient's age to complete this topic [facility]-Rotavirus Vaccines Aged Out No lo nger eligible based on patient's age to complete this topic Insurance [employer] Care Teams Mental Hygiene Consultant Relationship Specialty Start Date End Date Phuong Perez MD PCP - General 11/13/23
--- OUTSIDE RECORDS SUMMARY | 2025-06-09 09:42 | XMS_ITS | Encounter Summary ---
[facility] Organization [facility] Address [address] [place] [address] Care Team Providers Care Cream Cheese Maker Name Role Phone Rito Bobby Primary Care Provider + Encounter Details Date Type Department Care Team (Latest Contact Info) Description 04/22/2025 Travel Social History Tobacco Use Types Packs/Day Years [...] or training? Not on file Preferred Language Serbian 10/15/2024 Comments No Sex and Gender Information Value Date Recorded Sex Assigned at Female 04/16/2025 9:07 AM EDT Legal Sex Female 10:48 AM EDT Gender Identity Not on file Sexual Orientation Straight 04/16/2025 9 :07 AM EDT documented as of this encounter Plan of Treatment Upcoming Encounters Date Type Department Care Team (Late st Contact Info) Description 07/23/2025 11:30 AM EDT Office Visit [facility] [address] [place] [id number] Calderon Oconnor, ALLYSSA [address] [place] [address] documented as of this encounter Visit Diagnoses Not on filedocumented in this encounter Care Teams Cream Cheese Maker Relationship Specialty Start Date End Date Rito Bobby DO [address] [place] [id number] PCP - General Internal Medicine 12/17/24 documented as of this encounter
[2025-06-09 10:55] LABS: Albumin Level 3.9 g/dl (3.5-5.0); Anion Gap 6.8 mEq/L (5-15); Blood Urea Nitrogen 17 mg/dl (7-17); Calcium 11.3 mg/dl (8.4-10.2); Carbon Dioxide 28 mmol/L (22.0-30.0); Chloride 111 mmol/L (98-107); Creatinine,Serum 0.70 mg/dl (0.52-1.04); Estimated Glomerular Filt Rate 89 ml/min (>60); GFR (African American) 108 ML/MIN (>60); Glucose 89 mg/dl (74-100); Phosphorous 3.8 mg/dl (2.5-4.5); Potassium 4.8 mmoL/L (3.5-5.1); Sodium 141 mmol/L (136-145)
[2025-06-09 11:11] LABS: 25-OH Vitamin D, Total 37.5 ng/mL (30-100)
[2025-06-10 18:10] LABS: Calcium, Ionized 6.0 mg/dL (4.5-5.6)
== END 2025-06-09 23:59 | disposition home or self-care (01) ==
LOC: LAB 09:39
PROVIDERS: PCP Internal Medicine; Visit Provider Student in an Organized Health Care Education/Training Program
DX: R79.89 Other specified abnormal findings of blood chemistry (principal)
CPT/HCPCS: 36415; 80069; 82306; 82330; 83970

== ENCOUNTER 2025-07-30 08:43 | Outpatient (CLI) | payer BC, SELFPAY ==
--- OUTSIDE RECORDS SUMMARY | 2024-05-18 08:35 | XMS_ITS | Encounter Summary ---
Author Organization [facility] Address [address] [place] [address] Care Team Providers Care Clinical Field Specialist Name Role Phone Ladarius Liang MD Primary Care Provider [phone] Encounter Details Date Type Department Care Team (Late st Contact Info) Description 05/18/2024 8:35 AM EDT Hospital Encounter [facility] PULMONARY & CRITICAL CARE MEDICINE [address] [place] [address] [phone] Social History Tobacco Use Types Packs/Day Years Used Date Smoking Tobacco: Never Smokeless Tobacco: Never Alcohol Use Standard Drinks/Week Comments Never 0 (1 standard drink = 0.6 oz pur e alcohol) AUDIT-C Answer Date Recorded Q1: How often do you have a drink containing alcohol? Never 10/22/2024 Q2: How many drinks containi ng alcohol do you have on a typical day when you are drinking? Patient does not drink Q3: How often do you have si x or more drinks on one occasion? Never 10/22/2024 Abuse Screen Answer Date Recorded Feels Unsafe at Home or Work/School no 10/22/2024 Feels Threatened by Someone no 09/28 Does Anyone Try to Keep You From Having Contact with Others or Doing Things Outside Your Home? no 10/22/2024 Physical Signs of Abuse Present no 10/22/2024 Housing Stability Answer Date Recorded Current Living Arrangements home 09/28 Potentially Unsafe Housing Conditions Not on kranthi e 10/22/2024 Disabilities Answer Date Recorded Difficulty Concentrating, Remembering or Making Decisions no 10/22/2024 Difficulty Managing Errands Independently no 10/22/2024 Education Answer Date Recorded Help with school or training? Not on file Preferred Language Saudi Arabian 10/15/2024 Comments No Sex and Gender Information Value Date Recorded Sex Assigned at Female 04/16/2025 9:07 AM EDT Legal Sex Female 10:48 AM EDT Gender Identity Not on file Sexual Orientation Straight 04/16/2025 9: 07 AM EDT documented as of this encounter Functional Status * Question Answer Date of Assessment Author 1. Wish to be (Past 1 Month) No 10/22/2024 6:00 AM Alicia Bradford RN 2. Non-Specific Active Suici gerda Thoughts (Past 1 Month) No 10/22/2024 6:00 AM Og Bradford RN * Calculated C-SSRS Risk Score (Lifetime/Recent) Answer Date of Assessment Author No Risk Indicated 10/22/2024 6:00 AM Alicia Sagastume RN * [place] Suicide Severity Rating Scale (Screener/Recent Self-Report) Question Answer Date of Assessment Author 6. Suicidal Behavior (Lifetime) No 6:00 AM Alicia Bradford RN documented as of this encounter Plan of Treatment Upcoming Encounters Date Type Department Care Team (Late st Contact Info) Description 10/25/2025 8:00 AM EST Office Visit [facility] BARIATRIC SURGERY [address] [facility] [address] [place] [address] Christine Connell, ALLYSSA [address] [place], [place] [id number] documented as of this encounter Procedures Procedure Name Priority Date/Time Associated Diagnosis Comments XR CHEST PA AND LATERAL Routine 05/18/2024 8:36 AM EDT Preoperative clearance documented in this encounter Results * XR Chest PA & Lateral (05/18/2024 8:36 AM EDT) Anatomical Region Laterality Modality Body, Chest N/A Radiographic Etelvina ging 05/19/2024 9:17 PM EDT Impressions 05/19/2024 9:17 PM EDT Impression: No acute process. Electronically Signed: Armando Alexandre MD 05/19/2024 9:17 PM EDT Workstation ID: [id number] Narrative 05/19/2024 9:17 PM EDT XR CHEST PA AND LATERAL Date of Exam: 05/18/2024 8:36 AM EDT Indication: PREOP Comparison: None available. Findings: The cardiomediastinal silhouette is within normal limits. Lungs are clear. No focal consolidation, pneumothorax, or significant pleural effusion. Osseous structures grossly intact. Procedure Note Armando Alexandre MD - 05/19/2024 XR CHEST PA AND LATERAL Date of Exam: 05/18/2024 8:36 AM EDT Indication: PREOP Comparison: None available. Findings: The cardiomediastinal silhouette is within normal limits. Lungs are clear.No focal consolidation, pneumothorax, or significant pleural effusion.Osseous structures grossly intact. IMPRESSION: Impression: No acute process. Electronically Signed: Armando Alexandre MD 05/19/2024 9:17 PM EDT Workstation ID: [id number] Mikayla Mitchell APRN IMG DIAGNOSTIC IMAGING ORDER MOISÉS Final Result documented in this encounter Visit Diagnoses Not on filedocumented in this encounter Care Teams Clinical Field Specialist Relationship Specialty Start Date End Date Ladarius Liang MD [address] [place] [address] PCP - General Family Medicine 07/20/16 12/16/24 documented as of this encounter
--- OUTSIDE RECORDS SUMMARY | 2025-07-23 11:30 | XMS_ITS | Encounter Summary ---
Author Organization [facility] Address [address] [place] [phone] Care Team Providers Care Mother Baby Rn Name Role Phone Rito Bobby Gama Primary Care Provider + Encounter Details Date Type Department Care Team (Late st Contact Info) Description 07/23/2025 11:30 AM EDT Office Visit [facility] BARIATRIC SURGERY [address] [facility] [address] [place] [address] Christine Connell, CURING OVEN ATTENDANT [address] [address] Morbid obesity with BMI of [...] or training? Not on file Preferred Language Bruneian 10/15/2024 Comments No Sex and Gender Information [...] Progress Notes * Christine Connell APRN - 07/23/2025 11:30 AM EDT [facility] Bariatric Surgery [address] [place] [address] [facility] [address] Patient Name: Radha Donis : 1975 [...] by end of year. Dr. Garcia @ [facility] ENT. Doing well. Denies dysphagia, reflux, [...] for the 07/23/25 encounter (Office Visit) with Christine Connell APRN Medication Sig Dispense Refill estradiol (ESTRACE) [...] History Narrative Patient is and resides in [place], [place]. 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 BP 124/80 Pulse 87 Temp 96.9 [...] Description 10/25/2025 8:00 AM EST Office Visit [facility] BARIATRIC SURGERY [address] [facility] [address] [place] [address] Christine Connell APRN [address] [address] Scheduled Orders Name Type Priority Associated Diagnoses Orde r Schedule CBC & Differential Lab Panel Routine Morbid obesity with BMI of 50.0-59.9, adult Intestinal malabsorption, unspecified type Vitamin D deficiency Abnormal blood level of iron Fatigue, unspecified type Ordered: 07/23/2025 Comprehensive Metabolic Panel Lab Routine Morbid obesity with BMI of 50.0-59.9, adult Intestinal malabsorption, unspecified type Vitamin D deficiency Abnormal blood level of iron Fatigue, unspecified type Ordered: 07/23/2025 Copper, Serum Lab Routine Morbid obesity with BMI of 50.0-59.9, adult Intestinal malabsorption, unspecified type Vitamin D deficiency Abnormal blood level of iron Fatigue, unspecified type Ordered: 07/23/2025 Ferritin Lab Routine Morbid obesity with BMI of 50.0-59.9, adult Intestinal malabsorption, unspecified type Vitamin D deficiency Abnormal blood level of iron Fatigue, unspecified type Ordered: 07/23/2025 Folate Lab Routine Morbid obesity with BMI of 50.0-59.9, adult Intestinal malabsorption, unspecified type Vitamin D deficiency Abnormal blood level of iron Fatigue, unspecified type Ordered: 07/23/2025 Iron Lab Routine Morbid obesity with BMI of 50.0-59.9, adult Intestinal malabsorption, unspecified type Vitamin D deficiency Abnormal blood level of iron Fatigue, unspecified type Ordered: 07/23/2025 Magnesium Lab Routine Morbid obesity with BMI of 50.0-59.9, adult Intestinal malabsorption, unspecified type Vitamin D deficiency Abnormal blood level of iron Fatigue, unspecified type Ordered: 07/23/2025 Methylmalonic Acid, Serum Lab Routine Morbid obesity with BMI of 50.0-59.9, adult Intestinal malabsorption, unspecified type Vitamin D deficiency Abnormal blood level of iron Fatigue, unspecified type Ordered: 07/23/2025 Phosphorus Lab Routine Morbid obesity with BMI of 50.0-59.9, adult Intestinal malabsorption, unspecified type Vitamin D deficiency Abnormal blood level of iron Fatigue, unspecified type Ordered: 07/23/2025 Prealbumin Lab Routine Morbid obesity with BMI of 50.0-59.9, adult Intestinal malabsorption, unspecified type Vitamin D deficiency Abnormal blood level of iron Fatigue, unspecified type Ordered: 07/23/2025 Protime-INR Lab Routine Morbid obesity with BMI of 50.0-59.9, adult Intestinal malabsorption, unspecified type Vitamin D deficiency Abnormal blood level of iron Fatigue, unspecified type Ordered: 07/23/2025 PTH, Intact Lab Routine Morbid obesity with BMI of 50.0-59.9, adult Intestinal malabsorption, unspecified type Vitamin D deficiency Abnormal blood level of iron Fatigue, unspecified type Ordered: 07/23/2025 Vitamin A Lab Routine Morbid obesity with BMI of 50.0-59.9, adult Intestinal malabsorption, unspecified type Vitamin D deficiency Abnormal blood level of iron Fatigue, unspecified type Ordered: 07/23/2025 Vitamin B1, Whole Blood Lab Routine Morbid obesity with BMI of 50.0-59.9, adult Intestinal malabsorption, unspecified type Vitamin D deficiency Abnormal blood level of iron Fatigue, unspecified type Ordered: 07/23/2025 Vitamin D,25-Hydroxy Lab Routine Morbid obesity with BMI of 50.0-59.9, adult Intestinal malabsorption, unspecified type Vitamin D deficiency Abnormal blood level of iron Fatigue, unspecified type Ordered: 07/23/2025 Vitamin E Lab Routine Morbid obesity with BMI of 50.0-59.9, adult Intestinal malabsorption, unspecified type Vitamin D deficiency Abnormal blood level of iron Fatigue, unspecified type Ordered: 07/23/2025 Vitamin K1 Lab Routine Morbid obesity with BMI of 50.0-59.9, adult Intestinal malabsorption, unspecified type Vitamin D deficiency Abnormal blood level of iron Fatigue, unspecified type Ordered: 07/23/2025 Zinc Lab Routine Morbid obesity with BMI of 50.0-59.9, adult Intestinal malabsorption, unspecified type Vitamin D deficiency Abnormal blood level of iron Fatigue, unspecified type Ordered: 07/23/2025 documented as of this encounter Visit Diagnoses Diagnosis Morbid obesity with BMI of 50.0-59.9, adult- Primary Intestinal malabsorption, unspecified type Vitamin D deficiency Abnormal blood level of iron Other abnormal blood chemistry Fatigue, unspecified type documented in this encounter Care Teams Mother Baby Rn Relationship Specialty Start Date End Date Rito Bobby DO [address] [place] [address] PCP - General Internal Medicine 12/17/24 documented as of this encounter
--- OUTSIDE RECORDS SUMMARY | 2025-07-30 08:48 | XMS_ITS | Encounter Summary ---
Author Organization Healthcare Address [address] [place] [address] Care Team Providers Care Landscape Nurseryman Name Role Phone Phuong Perez MD Primary Care Provider [phone] Encounter Details Date Type Department Care Team (Late Contact Info) Description 03/01/2025 Orders Only External Location [address] [place] [address] Provider, External Social History Tobacco Use Types Packs/Day Years Used Date Smoking Tobacco: Never Smokeless Tobacco: Never Alcohol Use Standard Drinks/Week Comments Not Currently [...] Encounters Date Type Department Care Team (Late Contact Info) Description 09/06/2025 1:00 PM EST Consult Medical Office Building Surgical Specialties [address] [facility], [address] [place] [phone] Garo Fonseca MD [address] [place] [phone] documented as of this encounter Procedures Procedure Name Priority Date/Time Associated Diagnosis Comments NM OUTSIDE IMAGES 03/01/2025 1:23 PM EDT documented in this encounter Results * NM OUTSIDE IMAGES (03/01/2025 1:23 PM EDT) Anatomical Region Laterality Modality Nuclear Medicine 03/01/2025 1:23 PM EDT us External Provider IMG NM PROCEDURES Edited Resul t - Final documented in this encounter Visit Diagnoses Not on filedocumented in this encounter Additional Health Concerns Assessment Noted Time A Body Mass Index follow-up plan has been documented for the patient 07/27/2024 3:45 PM EDT documented as of this encounter Care Teams Landscape Nurseryman Relationship Specialty Start Date End Date Phuong Perez MD PCP - General 11/13/23 documented as of this encounter
--- OUTSIDE RECORDS SUMMARY | 2025-07-30 08:48 | XMS_ITS | Clinical Summary ---
[facility] Organization [facility] Address [address] [place] [address] Care Team Providers Care Head Of Sales And Marketing Name Role Phone Rito Bobby Gama Primary Care Provider + Allergies Active Allergy Reactions Criticality Noted Date Comments Lisinopril Anaphylaxis High 10/22/2023 Medications * This document contains information received from the source organization and may not represent a complete record from that organization. polyethylene glycol (MiraLax) 17 g packet Take 17 g by mouth Daily As Needed. Active Semaglutide-We ight Management (Wegovy) 0.25 MG/0.5ML solution auto-injector Inject 0.5 mL under the skin into the appropriate area as directed. weekly Active losartan (COZAAR) 25 MG tablet Take 1 tablet by mouth Daily. 5 Active Tavaborole 5 % solution use 1 application topically daily 5 Active NON FORMULARY Bariatric patches: Multi vitamin, Vit B12,Iron, Calium Active estradiol (ESTRACE) 0.1 MG/GM vaginal cream Insert 2 g into the vagina 2 (Two) Times a Week. 5 Active Needle, Disp, 25G X 1 misc Inject 1 each as directed Daily. For B12 injections 14 each 5 07/23/20 25 Discontin ued(*Ther apy completed ) Cholecalcifero l 1.25 MG (70930 UT) tablet Take 1 tablet by mouth 2 (Two) Times a Week. 24 tablet 5 07/23/20 25 Discontin ued(*Ther apy completed ) chlorthalidone (HYGROTON) 25 MG tablet Take 1 tablet by mouth Daily. 07/23/20 25 Discontin ued(*Ther apy completed ) potassium chloride (KLOR-CON M20) 20 MEQ CR tablet Take 1 tablet by mouth 2 (Two) Times a Day. 07/23/20 25 Discontin ued(*Ther apy completed ) Active Problems Problem Noted Date Diagnosed Date Body mass index (BMI) of 60.0-69.9 in adult 12/2023 Personal history of gastric bypass 09/29/2024 Morbid obesity with body mas s index (BMI) of 60.0 to 69.9 in adult 09/29/2024 Weight gain following gastric bypass surgery 02/2024 Dyspepsia 05/28/2024 Dysfunctional uterine bleeding 07/20/2016 Encounters Date Type Department Care Team Description 07/23/2025 11:30 AM EDT Office Visit [facility] [address] [place] [phone] Christine Connell APRN Morbid obesity with BMI of 50.0-59.9, adult (Primary Dx); Intestinal malabsorption, unspecified type; Vitamin D deficiency; Abnormal blood level of iron; Fatigue, unspecified type 07/23/2025 Travel from Last 3 Months Immunizations Immunization Administration Dates Next Due Influenza Injectable Mdck Pf Quad 09/08/2021 Family History Medical History Relation Name Comments Heart attack Brother Garo Rashawn Kempp Hypertension Brother Garo Morocho Harangelia Obesity Brother Garo Morocho Harp Arrhythmia Father Chris Ray Harp Diabetes Father Chris Ray Harp Heart attack Father Chris Ray Harp Heart disease Father Chris Ray Harp Hypertension Father Chris Ray Harp Obesity Father Chris Ray Harp Sleep apnea Father Chris Ray Harp Heart attack Maternal Grandfather Garo Andrea Hypertension Maternal Grandfather Garo Andrea Stomach cancer Maternal Grandfather Garo Andrea Stroke Maternal Grandfather Garo Andrea Hypertension Maternal Grandmother Shannan Fregoso Lung cancer Maternal Grandmother Shannan Fregoso Diabetes type II Mother Anita True Heart attack Mother Anita True Heart disease Mother Anita True Hypertension Mother Anita True Breast cancer Paternal Grandmother Haylie Rodrick Becr aft Diabetes Paternal Grandmother Ivrica Rodrick Becra ft Heart attack Paternal Grandmother Ivrica Rodrick Becra ft Heart disease Paternal Grandmother Ivrica Rodrick Becr aft Hypertension Paternal Grandmother Ivrica Rodrick Becra ft Obesity Paternal Grandmother Ivrica Rodrick Becra ft Obesity Sister Relation Name Status Comments Brother Garo Henderson Father hCris Henderson Maternal Grandfather Garo Andrea Maternal Grandmother Shannan Fregoso Mother Anita True Paternal Grandfather Paternal Grandmother Haylie Rodrick Becraft Sister Social History Tobacco Use Types Packs/Day [...] or training? Not on file Preferred Language Tajik 10/15/2024 Comments No Sex and Gender Information [...] Mass Index 50.3 07/23/2025 11:17 AM EDT Plan of Treatment Upcoming Encounters Date Type Department Care Team (Late st Contact Info) Description 10/25/2025 8:00 AM EST Office Visit [facility] [address] [phone] Christine Connell, PHYSICS INSTRUCTOR [address] [place] [address] Health Maintenance Due Date Last Done Comments Annual Gynecologic Pelvic an d Breast Exam 1975 TDAP/TD VACCINES (1 - Tdap) 1995 COLOGUARD 2021 COLON CANCER SCREENING 5 YEA R SIGMOIDOSCOPY 2021 COLONOSCOPY 2021 [address]AL CANCER SCREENING 2021 CT COLONOGRAPHY 2021 FECAL OCCULT BLOOD TEST 2021 FIT Testing (1 year) 2021 MAMMOGRAM 08/16/2022 08/16/2020 ANNUAL PHYSICAL 10/22/2023 HEPATITIS C SCREENING 10/22/2023 LIPID PANEL 04/22/2025 04/22/2024 INFLUENZA VACCINE 05/28/2025 09/08/2021 PAP SMEAR 10/22/2026 10/22/2023 Pneumococcal Vaccine 0-49 Aged Out No longer eligible based on patient's age to complete this topic Medical Devices Implanted Type Area Site Medical Director Device Identifier Shelf Expiration Date Model / Serial / Lot Reload Stplr Watson Flex Gst Stnd 60 Wht - [id number] Implanted:Qty : 4 on 10/22/2024 by Ezequiel Beverly MD at [facility] Implant N/A: Abdomen [employer] DIV OF J AND J 12/25/2026 [id number] / / [id number] Dev Contrl Tiss Stratafix Spiral Pds Pls 3/0 0 15cm Silvana - [id number] Implanted:Qty : 1 on 10/22/2024 by Ezequiel Beverly MD at [facility] Implant N/A: Abdomen ETH[employer]ON DIV OF J AND J 02/24/2026 [id number] / / [id number] Dev Contrl Tiss Stratafix Spiral Pds Pls 3/0 0 15cm Silvana - [id number] Implanted:Qty : 1 on 10/22/2024 by Ezequiel Beverly MD at [facility] Implant N/A: Abdomen ETH[employer]ON DIV OF AND J 02/24/2026 [id number] / / [id number] Dev Cls Wnd Vloc/Pbt Margret Nonabs 1/2cir Sz2/0 26mm 15cm Krishna - [id number] Implanted:Qty : 3 on 10/22/2024 by Ezequiel Beverly MD at [facility] Implant N/A: Abdomen COVIDIEN 03/27/2027 [id number] / / [id number] Stplr Tiss [id number] Lng [id number] Strl 1p/U - [id number] Implanted:Qty : 1 on 10/22/2024 by Ezequiel Beverly MD at [facility] Implant N/A: Abdomen [employer] DIV OF J AND J 12/25/2026 [id number] / / [id number] Procedures Procedure Name Priority Date/Time Associated Diagnosis Comments LIPID PANEL Routine 04/22/2024 10:43 AM EDT [...] Recently Relevant to Health Maintenance Results * (ABNORMAL) Lipid Panel (04/22/2024 10:43 AM EDT) Pathologist [facility] Total Cholesterol 265(H) 100 - 199 mg/dL [facility] Triglycerides 205(H) 0 - 149 mg/dL [facility] HDL Cholesterol 61 >39 mg/dL [facility] VLDL Cholesterol Sonu 38 5 - 40 mg/dL [facility] LDL Chol Calc (NIH) 166(H) 0 - 99 mg/dL [facility] Blood 04/22/2024 10:4 3 AM EDT 04/22/2024 Narrative [facility] (AMBULATORY) - 04/23/2024 4:12 PM EDT Performed at: [facility] [id number] Fuel Operator: John Warren PhD, Phone: [phone] Patient Fasting: N Imelda Jordan MD LAB BLOOD ORDERABLES Fin al Result [facility] Myze [facility] (AMBULATORY) [address] [place] [address], [facility] [address] [place] [address], * LIQUID-BASED PAP SMEAR WITH HPV GENOTYPING REGARDLESS OF INTERPRETATION (NETTA,COR,MAD) (10/22/2023 2:35 PM EST) [facility] Report [facility] [address] [place] [address] or [phone] Hima Higginbotham M.D., Exhibition Specialist PATIENT NAME LABORATORY NO. [id number] LUI [id number] AGE SEX SSN CLIENT REF # [facility] 48 1975 F [id number] [facility] LUIS OSBORNE REQUESTING Abdon ATTENDING [place] [address] JAMES REGINA DATE COLLECTED DATE RECEIVED DATE REPORTED 10/22/2023 10/22/2023 10/31/2023 ThinPrep Pap with Cytyc Imaging DIAGNOSIS: Negative for intraepithelial lesion or malignancy Multiple factors can influence accuracy of Pap tests; therefore, screening at regular intervals is necessary for early cancer detection. Professional interpretation rendered by Hima Higginbotham M.D., F.C.A.P. at [employer], [employer], [address] [place] [address]. RECOMMENDATION: Follow up as clinically appropriate SPECIMEN [...] 51, 52, 56, 58, 59, 66, 68 PURCHASING INTERNSHIP: ANALI BERRY (ASCP) REVIEWED, DIAGNOSED AND ELECTRONICALLY SIGNED BY: Hima Higginbotham M.D., F.C.A.P. CPT CODES: [id number], [id number], [id number] 10/31/2023 12:44 PM EST [facility] ThinPrep Vial Cervix uteri structure / Unknown Collection / Unknown 10/22/2023 2:35 PM EST 10/22/2023 2:35 PM EST us Regina Perez MD PATHOLOGY/CYTOLOGY ORDERABLES F inal Result [facility]
[address] [place] [address], * SCANNED - MAMMO (08/16/2020) Anatomical Region Laterality Modality Other Regina Perez MD CHART REVIEW TABS Final Resu lt [...] Of Support Discussed With: Patient Care Teams Head Of Sales And Marketing Relationship Specialty Start Date End Date Rito Bobby DO [facility] [address] [place] [address] PCP - General Internal Medicine 12/17/24
--- OUTSIDE RECORDS SUMMARY | 2025-07-30 08:48 | XMS_ITS | Encounter Summary ---
Author Organization [facility] Address [address] [place] [address] Care Team Providers Care Car Seat Coverer Name Role Phone Phuong Perez MD Primary Care Provider [phone] Reason for Referral * Consultation (Routine) - Closed Specialty Diagnoses / Procedures Referred By Contact Referred To Contact Gynecology / Obstetrics and Gynecology Diagnoses Abnormal uterine bleeding Phuong Perez MD [address] [facility] [address] [place] [address] Phone: tel: fax: Referral ID Status Reason Start Date Expiration Date V isits Requested Visits Authorized [id number] Closed Specialty Services Required 11/12/2023 05/13/2025 1 1 Encounter Details Date Type Department Care Team ([facility] Contact Info) Description 11/12/2023 [facility] [address] [place] [address] Phuong Perez MD [address] [place] [phone] Abnormal uterine bleeding (Primary Dx) Social History [...] Upcoming Encounters Date Type Department Care Team ([facility] Contact Info) Description 09/06/2025 1:00 PM EST Consult Medical Office Building Surgical Specialties [address] [facility], [address] [place] [address] Garo Fonseca MD [address] [address] Scheduled Referrals Name Type Priority Associated Diagnoses Order Schedule Ambulatory referral to Gynecology Outpatient Referral Routine Abnormal uterine bleeding 1 Occurrences starting 11/12/2023 until 05/12/2025 documented as of this encounter Visit Diagnoses Diagnosis Abnormal uterine bleeding- Primary Unspecified disorder of menstruation and other abnormal bleeding from female genital tract documented in this encounter Care Teams Car Seat Coverer Relationship Specialty Start Date End Date Phuong Perez MD PCP - General 11/13/23 documented as of this encounter
--- OUTSIDE RECORDS SUMMARY | 2025-07-30 08:48 | XMS_ITS | Encounter Summary ---
Author Organization [facility] Address [address] [place] [address] Care Team Providers Care Railroad Design Consultant Name Role Phone Rito Bobby Primary Care Provider + Encounter Details Date Type Department Care Team (Latest Contact Info) Description 07/23/2025 Travel Social History Tobacco Use Types Packs/Day [...] or training? Not on file Preferred Language Albanian 10/15/2024 Comments No Sex and Gender Information Value Date Recorded Sex Assigned at Female 04/16/2025 9:07 AM EDT Legal Sex Female 10:48 AM EDT Gender Identity Not on file Sexual Orientation Straight 04/16/2025 9: 07 AM EDT documented as of this encounter Plan of Treatment Upcoming Encounters Date Type Department Care Team (Late st Contact Info) Description 10/25/2025 8:00 AM EST Office Visit [facility] [address] [facility] [address] [place] [address] Christine Connell, SPOT MAN [address] [place] [address] documented as of this encounter Visit Diagnoses Not on filedocumented in this encounter Care Teams Railroad Design Consultant Relationship Specialty Start Date End Date Rito Bobby DO [address] [place] [address] [place] [address] PCP - General Internal Medicine 12/17/24 documented as of this encounter
--- OUTSIDE RECORDS SUMMARY | 2025-07-30 08:48 | XMS_ITS | Clinical Summary ---
Author Organization Healthcare Address [address] [place] [address] Care Team Providers Care Geek Squad Autotech Name Role Phone Phuong Perez MD Primary Care Provider [phone] Allergies Active Allergy Reactions Criticality Noted Date [...] 07/27/2024 1:23 PM EDT Plan of Treatment Upcoming Encounters Date Type Department Care Team (Late st Contact Info) Description 09/06/2025 1:00 PM EST Consult Medical Office Building Surgical Specialties [address] [facility], [address] [place] [address] Garo Fonseca MD [address] [phone] Health Maintenance Due Date Last Done Comments [facility]-Depression Screening 1976 [facility]-HIV Screening 1976 [facility]-Hepatitis C Screening 1976 [facility]-Infant/Child/Adol SDOH Screenings 1976 [facility]- SDOH Screenings 1994 [facility]-Adult SDOH Screenings 1994 [facility]-DTaP,Tdap,and Td Vaccine s (1 - Tdap) 1995 [facility]-Hepatitis B Vaccines (1 of 3 - 19+ 3-dose series) 1995 [facility]-HPV/Cotest 2006 CT Colonography 2021 Colonoscopy 2021 FIT-DNA 2021 FIT 2021 FOBT 2021 Sigmoidoscopy 2021 [facility]-Colorectal Cancer Screening 2021 [id number] Vaccine ( season) 2025 09/08/2021, 01/19/2021, 12/22/2020 [facility]-Influenza Vaccine (#1) 2025 [...] complete this topic Insurance RAYSA Care Teams Geek [employer] Relationship Specialty Start Date End Date Phuong Perez MD PCP - General 11/13/23
--- NOTE | 2025-07-30 09:00 | NM_ITS ---
FINAL REPORT CLINICAL HISTORY: calicum level out 9:20 am 19.5mci tc sestamibi injected into lt ant FINDINGS: 19.5 mCi Technetium 99-M Sestamibi was administered. Planar imaging was performed early and two-hour delayed of the neck and upper thorax. Early imaging shows diffuse activity throughout the thyroid. On delayed imaging there is a persistent focal area of activity in the lower pole of the left thyroid lobe. IMPRESSION: Persistent focal area of activity lower pole left thyroid lobe. Can not exclude parathyroid adenoma at this location. Reviewed, Interpreted and Dictated by Brian Ying MD Transcribed by Wanda Fu Authenticated and [facility]
[2025-07-30] MEDS: SODIUM CHLORIDE 0.9% 10ML SYR (RAD ONLY) 10 ML IV (09:53)
[2025-07-30] MEDS: ISO TC99M (SESTAMIBI);1 DOSE VIAL IV (09:53)
== END 2025-07-30 23:59 | disposition home or self-care (01) ==
LOC: RAD 08:44
PROVIDERS: PCP Internal Medicine; Visit Provider Student in an Organized Health Care Education/Training Program
DX: E21.0 Primary hyperparathyroidism (principal); R93.89 Abnormal findings on diagnostic imaging of other specified body structures
CPT/HCPCS: 78071; A9500

== ENCOUNTER 2025-08-20 14:54 | Outpatient (CLI) | payer BC, SELFPAY ==
--- OUTSIDE RECORDS SUMMARY | 2024-05-18 08:35 | XMS_ITS | Encounter Summary ---
Author Organization [facility] Address [address] [place] [address] Care Team Providers Care Stringed Instrument Repairer Name Role Phone Ladarius Liang MD Primary Care Provider [phone] Encounter Details Date Type Department Care Team (Late st Contact Info) Description 05/18/2024 8:35 AM EDT Hospital Encounter [facility] PULMONARY & CRITICAL CARE MEDICINE [address] [place] [address] [phone] Social History Tobacco Use Types Packs/Day Years [...] or training? Not on file Preferred Language Ugandan 10/15/2024 Comments No Sex and Gender Information [...] 10/22/2024 6:00 AM Alicia Sagastume RN * [place] Suicide Severity Rating Scale (Screener/Recent Self-Report) Question Answer Date of Assessment Author 6. Suicidal Behavior (Lifetime) No 6:00 AM Alicia Bradford RN documented as of this encounter Plan of Treatment Upcoming Encounters Date Type Department Care Team (Late st Contact Info) Description 10/25/2025 8:00 AM EST Office Visit [facility] [address] [facility] [address] [place] [address] Christine Connell, ALLYSSA [address] [place], [place] [phone] documented as of this encounter Procedures Procedure [...] MD 05/19/2024 9:17 PM EDT Workstation ID: [id number] Narrative 05/19/2024 9:17 PM EDT XR CHEST [...] MD 05/19/2024 9:17 PM EDT Workstation ID: [id number] Mikayla Mitchell APRN IMG DIAGNOSTIC IMAGING ORDER MOISÉS Final Result documented in this encounter Visit Diagnoses Not on filedocumented in this encounter Care Teams Stringed Instrument Repairer Relationship Specialty Start Date End Date Ladarius Liang MD [address] [place] [address] PCP - General Family Medicine 07/20/16 12/16/24 documented as of this encounter
--- OUTSIDE RECORDS SUMMARY | 2025-07-23 11:30 | XMS_ITS | Encounter Summary ---
Author Organization [facility] Address [address] [place] [id number] Care Team Providers Care Digital Learning Platforms Manager Name Role Phone Rito Bobby Primary Care Provider + Encounter Details Date Type Department Care Team (Late st Contact Info) Description 07/23/2025 11:30 AM EDT Office Visit [facility] BARI[facility]IC SURGERY [address] [facility] [address] [place] [address] Kathryn Mendez, DENTAL TECHNOLOGY ADVISOR [address] [address] Morbid obesity with BMI of [...] or training? Not on file Preferred Language Djiboutian 10/15/2024 Comments No Sex and Gender Information [...] PM Modules accepted: Orders * Kathryn Mendez, DENTAL TECHNOLOGY ADVISOR - 07/23/2025 11:30 AM EDT [facility] Bariatric Surgery [address] [place] [address] [facility] [address] Patient Name: Radha Donis : 1975 Date [...] by end of year. Dr. Garcia @ [facility] ENT. Doing well. Denies dysphagia, reflux, nausea, [...] History Narrative Patient is and resides in [place], [place]. 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 BP 124/80 Pulse 87 Temp 96.9 [...] Description 10/25/2025 8:00 AM EST Office Visit [facility] BARI[facility]IC SURGERY [address] [place] [address] [place] [address] Kathryn Mendez APRN [address] [place] [phone] documented as of this encounter Procedures Procedure [...] 11:5 5 AM EDT 07/23/2025 Narrative [facility] (AMBULATORY) - 07/31/2025 4:08 AM EDT Test(s) 694604-Cnlj, Plasma or Serum was developed and its performance characteristics determined by [facility]. It has not been cleared or approved by the Food and Drug Administration. Performed at: 02 - [address] [id number] Senior Electrical Design Engineer: Maria Victoria Reed MD, Phone: [phone] Patient Fasting: N us Kathryn Mendez APRN LAB BLOOD ORDERABLES Final Res ult [facility] (AMBULATORY) [address] [place] [address], [facility] [address] [place] [address], * Vitamin K1 (07/23/2025 11:55 AM EDT) Vitamin K 0.92 0.10 - 2.20 ng/mL [facility] Blood 07/23/2025 11:5 5 AM EDT 07/23/2025 [facility] (AMBULATORY) - 07/31/2025 4:08 AM EDT Test(s) 245062-Jqmfreg K1 was developed and its performance characteristics determined by [facility]. It has not been cleared or approved by the Food and Drug Administration. Performed at: 02 - [facility] [id number] Senior Electrical Design Engineer: Maria Victoria Reed MD, Phone: [phone] Patient Fasting: N Kathryn Mendez APRN LAB BLOOD ORDERABLES Final Res ult Performing Organization Address [facility] Co de Phone Number [facility] (AMBULATORY) [address] [place] [address], [facility] [address] [place] [address], * Vitamin E (07/23/2025 11:55 AM EDT) [facility] Vitamin E (Alpha Tocopherol) 12.5 7.0 - 25.1 mg/L [facility] Vitamin E (Gamma Tocopherol) 1.1 0.5 - 5.5 mg/L [facility] Comment: Reference intervals for alpha and gamma-tocopherol determined from National Health and Nutrition Examination Survey, 6286-9346. Individuals with alpha-tocopherol levels less than 5.0 mg/L are considered vitamin E deficient. Blood 07/23/2025 11:5 5 AM EDT 07/23/2025 [facility] (AMBULATORY) - 07/31/2025 4:08 AM EDT Test(s) 798318-Jhgmwjj E(Alpha Tocopherol); 877209- Vitamin E(Gamma Tocopherol) was developed and its performance characteristics determined by [facility]. It has not been cleared or approved by the Food and Drug Administration. Performed at: - [address] [id number] Senior Electrical Design Engineer: Maria Victoria Reed MD, Phone: [phone] Patient Fasting: N us Kathryn Mendez APRN LAB BLOOD ORDERABLES Final Res ult Performing Organization Address City/[facility]/ZIP Co de Phone Number [facility] (AMBULATORY) [address] [place] [address], [facility] [address] [place] [address], * (ABNORMAL) Vitamin D,25-Hydroxy (07/23/2025 11:55 AM EDT) 25 Hydroxy, Vitamin D 24.0(L) 30.0 - 100.0 ng/mL [facility] Comment: Vitamin D deficiency has been defined by the [place] of Medicine and an Endocrine Society practice guideline as a level of serum 25-OH vitamin D less than 20 ng/mL (1,2). The Endocrine Society went on to further define vitamin D insufficiency as a level between 21 and 29 ng/mL (2). 1. IOM ([place] of Medicine). 2010. Dietary reference intakes for calcium and D. [place]: The National Academies Press. 2. Feli MF, Hollie BRADFORD, Xavier LEONE, et al. Evaluation, treatment, and prevention of vitamin D deficiency: an Endocrine Society clinical practice guideline. JCEM. 2010; 96(7):1911-30. Blood 07/23/2025 11:5 5 AM EDT 07/23/2025 Narrative [facility] (AMBULATORY) - 07/31/2025 4:08 AM EDT Performed at: 01 - [facility] [id number] Senior Electrical Design Engineer: John Warren PhD, Phone: [phone] Patient Fasting: N Kathryn Mendez APRN LAB BLOOD ORDERABLES Final Res ult [facility] (AMBULATORY) [address] [place] [address], [facility] [address] [place] [address], * Vitamin B1, Whole Blood (07/23/2025 11:55 AM EDT) Vitamin B1, Whole Blood 122.7 66.5 - 200.0 nmol/L [facility] Blood 07/23/2025 11:5 5 AM EDT 07/23/2025 Narrative [facility] (AMBULATORY) - 07/31/2025 4:08 AM EDT Test(s) 003817-Iqh. B1, Whole Blood was developed and its performance characteristics determined by [facility]. It has not been cleared or approved by the Food and Drug Administration. Performed at: 02 - [address] [id number] Senior Electrical Design Engineer: Maria Victoria Reed MD, Phone: [phone] Patient Fasting: N Kathryn Mendez APRN LAB BLOOD ORDERABLES Final Res ult Performing Organization Address [facility] Co de Phone Number [facility] [address] [place] [address], [place] [phone] [facility] [address] [place] [address], [place] [phone] * Vitamin A (07/23/2025 11:55 AM EDT) [facility] Vitamin A 42.9 20.1 - 62.0 ug/dL [facility] Comment: Reference intervals for vitamin A determined from [facility] internal studies. Individuals with vitamin A less than 20 ug/dL are considered vitamin A deficient and those with serum concentrations less than 10 ug/dL are considered severely deficient. This test was developed and its performance characteristics determined by [facility]. It has not been cleared or approved by the Food and Drug Administration. Blood 07/23/2025 11:5 5 AM EDT 07/23/2025 Narrative [facility] (AMBULATORY) - 07/31/2025 4:08 AM EDT Performed at: [address] [id number] Senior Electrical Design Engineer: Maria Victoria Reed MD, Phone: [phone] Patient Fasting: N Kathryn Mendez DENTAL TECHNOLOGY ADVISOR LAB BLOOD ORDERABLES Final Res ult Performing Organization Address [facility] de Phone Number [facility] [address] [place] [id number], [facility] [address] [place] [address], [place] [phone] * (ABNORMAL) PTH, Intact (07/23/2025 11:55 AM EDT) PTH, Intact 151(H) 15 - 65 pg/mL [facility] Blood 07/23/2025 11:5 5 AM EDT 07/23/2025 [facility] [employer] (AMBULATORY) - 07/31/2025 4:08 AM EDT Performed at: - [address] [id number] Senior Electrical Design Engineer: John Warren PhD, Phone: [phone] Patient Fasting: N us Kathryn Mendez APRN LAB BLOOD ORDERABLES Final Res ult [facility] [address] [place] [address], [place] [phone] [facility] [address] [place] [address], [place] [phone] * Protime-INR (07/23/2025 11:55 AM EDT) Pathologist [facility] INR 0.9 0.9 - 1.2 [facility] Comment: Reference interval is for non-anticoagulated patients. Suggested INR therapeutic range for Vitamin K antagonist therapy: Standard Dose (moderate intensity therapeutic range): 2.0 - 3.0 Higher intensity therapeutic range 2.5 - 3.5 Protime 10.1 9.1 - 12.0 sec [facility] Blood 07/23/2025 11:5 5 AM EDT 07/23/2025 [facility] [employer] [facility] (AMBULATORY) - 07/31/2025 4:08 AM EDT Performed at: - [address] [id number] Senior Electrical Design Engineer: John Warren PhD, Phone: [phone] Patient Fasting: N Kathryn Mendez DENTAL TECHNOLOGY ADVISOR LAB BLOOD ORDERABLES Final Res ult [facility] (AMBULATORY) [address] [place] [address], [place] [phone] [facility] [address] [place] [address], [place] [phone] * Prealbumin (07/23/2025 11:55 AM EDT) Prealbumin 21 12 - 34 mg/dL [facility] Blood 07/23/2025 11:5 5 AM EDT 07/23/2025 Narrative [facility] (AMBULATORY) - 07/31/2025 4:08 AM EDT Performed at: - [address] [id number] Senior Electrical Design Engineer: John Warren PhD, Phone: [phone] Patient Fasting: N Kathryn Mendez DENTAL TECHNOLOGY ADVISOR LAB BLOOD ORDERABLES Final Res ult Performing Organization Address [facility]/ZIP Co de Phone Number [facility] (AMBULATORY) [address] [place] [address], [place] [phone] [facility] [address] [place] [address], [place] [phone] * Phosphorus (07/23/2025 11:55 AM EDT) Phosphorus 3.2 3.0 - 4.3 mg/dL [facility] Blood 07/23/2025 11:5 5 AM EDT 07/23/2025 Narrative [facility] (AMBULATORY) - 07/31/2025 4:08 AM EDT Performed at: - [address] [id number] Senior Electrical Design Engineer: John Warren PhD, Phone: [phone] Patient Fasting: N us Kathryn Mendez DENTAL TECHNOLOGY ADVISOR LAB BLOOD ORDERABLES Final Res ult [facility] (AMBULATORY) [address] [place] [address], [place] [phone] [facility] [address] [place] [address], [place] [phone] * Methylmalonic Acid, Serum (07/23/2025 11:55 AM EDT) Methylmalonic Acid 147 0 - 378 nmol/L [facility] Blood 07/23/2025 11:5 5 AM EDT 07/23/2025 [facility] (AMBULATORY) - 07/31/2025 4:08 AM EDT Test(s) 384468-Eszmtwtfgtylu Acid, Serum was developed and its performance characteristics determined by [facility]. It has not been cleared or approved by the Food and Drug Administration. Performed at: - [address] [id number] Senior Electrical Design Engineer: Maria Victoria Reed MD, Phone: [phone] Patient Fasting: N Kathryn Mendez APRN LAB BLOOD ORDERABLES Final Res ult Performing Organization Address City/[facility]/ZIP Co de Phone Number [facility] (AMBULATORY) [address] [place] [address], [facility] [address] [place] [address], * Magnesium (07/23/2025 11:55 AM EDT) Magnesium 2.0 1.6 - 2.3 mg/dL [facility] Blood 07/23/2025 11:5 5 AM EDT 07/23/2025 [facility] (AMBULATORY) - 07/31/2025 4:08 AM EDT Performed at: - [facility] [address] [place], [place] [id number] Senior Electrical Design Engineer: John Warren PhD, Phone: [phone] Patient Fasting: N us Kathryn Mendez APRN LAB BLOOD ORDERABLES Final Res ult Performing Organization Address City/[facility]/ZIP Co de Phone Number [facility] [address] [place] [address], [place] [phone] [facility] [address] [place] [address], [place] [phone] * Iron (07/23/2025 11:55 AM EDT) Pathologist [facility] Iron 59 27 - 159 ug/dL [facility] Blood 07/23/2025 11:5 5 AM EDT 07/23/2025 Narrative [facility] (AMBULATORY) - 07/31/2025 4:08 AM EDT Performed at: - [facility] [place] [address] [place], [place] [id number] Senior Electrical Design Engineer: John Warren PhD, Phone: [phone] Patient Fasting: N Kathryn Mendez APRN LAB BLOOD ORDERABLES Final Res ult Performing Organization Address [facility] Co de Phone Number [facility] (AMBULATORY) [address] [place] [address], [place] [phone] [facility] [address] [place] [address], [place] [phone] * Folate (07/23/2025 11:55 AM EDT) [facility] Folate 19.5 >3.0 ng/mL [facility] Comment: A serum folate concentration of less than 3.1 ng/mL is considered to represent clinical deficiency. Blood 07/23/2025 11:5 5 AM EDT 07/23/2025 Narrative [facility] (AMBULATORY) - 07/31/2025 4:08 AM EDT Performed at: - [facility] [place] [address] [place], [place] [id number] Senior Electrical Design Engineer: John Warren PhD, Phone: [phone] Patient Fasting: N Kathryn Mendez APRN LAB BLOOD ORDERABLES Final Res ult Performing Organization Address [facility] Co de Phone Number [facility] (AMBULATORY) [address] [place] [address], [place] [phone] [facility] [address] [place] [address], * (ABNORMAL) Ferritin (07/23/2025 11:55 AM EDT) Ferritin 10(L) 15 - 150 ng/mL [facility] Blood 07/23/2025 11:5 5 AM EDT 07/23/2025 Narrative [facility] (AMBULATORY) - 07/31/2025 4:08 AM EDT Performed at: - [facility] [address] [place] [id number] Senior Electrical Design Engineer: John Warren PhD, Phone: [phone] Patient Fasting: N Kathryn Mendez APRN LAB BLOOD ORDERABLES Final Res ult Performing Organization Address [facility]/ZIP Co de Phone Number [facility] ([facility]) [address] [place] [address], [facility] [address] [place] [address], * Copper, Serum (07/23/2025 11:55 AM EDT) Copper 151 80 - 158 ug/dL [facility] Comment:Detection Limit = 5 Blood 07/23/2025 11:5 5 AM EDT 07/23/2025 [facility] - 07/31/2025 4:08 AM EDT Test(s) [id number]-Xacqpa, Serum or Plasma was developed and its performance characteristics determined by [facility]. It has not been cleared or approved by the Food and Drug Administration. Performed at: - [address] [id number] Senior Electrical Design Engineer: Maria Victoria Reed MD, Phone: [phone] Patient Fasting: N Kathryn Mendez APRN LAB BLOOD ORDERABLES Final Res ult Performing Organization Address [facility]/ZIP Co de Phone Number [facility] (AMBULATORY) [address] [place] [address], [facility] [address] [place] [address], * (ABNORMAL) Comprehensive Metabolic Panel (07/23/2025 11:55 AM EDT) [facility] Glucose 81 70 - 99 mg/dL [...] 4:08 AM EDT Performed at: 01 - [facility] [id number] Senior Electrical Design Engineer: John Warren PhD, Phone: [phone] Patient Fasting: N us Kathryn Mendez APRN LAB BLOOD ORDERABLES Final Res ult [facility] (AMBULATORY) [address] [place] [address], [facility] [address] [place] [address], * (ABNORMAL) CBC & Differential (07/23/2025 11:55 [...] 07/31/2025 4:08 AM EDT Performed at: - [address] [id number] Senior Electrical Design Engineer: John Warren PhD, Phone: [phone] Patient Fasting: N us Kathryn Mendez DENTAL TECHNOLOGY ADVISOR LAB BLOOD ORDERABLES Final Res ult [facility] (AMBULATORY) [address] [place] [address], [place] [phone] [facility] [address] [place] [address], [place] [phone] documented in this encounter Visit Diagnoses Diagnosis Morbid obesity with BMI of 50.0-59.9, adult- Primary Intestinal malabsorption, unspecified type Vitamin D deficiency Abnormal blood level of iron Other abnormal blood chemistry Fatigue, unspecified type documented in this encounter Care Teams Digital Learning Platforms Manager Relationship Specialty Start Date End Date Rito Bobby DO [address] [place] [address] PCP - General Internal Medicine 12/17/24 documented as of this encounter
--- OUTSIDE RECORDS SUMMARY | 2025-08-09 07:00 | XMS_ITS | Encounter Summary ---
Author Organization [facility] Address [address] [place] [address] Care Team Providers Care Global Safety Officer Name Role Phone Phuong Perez MD Primary Care Provider [phone] Reason for Referral * Imaging (Routine) - Closed Specialty Diagnoses / Procedures Referred By Contac t Referred To Contact Radiology Diagnoses Primary hyperparathyroidism (CMS/HCC) Hypercalcemia Procedures CT Soft Tissue Neck w and wo IV Contrast CT Soft Tissue Neck w IV Contrast Roni Garcia MD [address] [place] [address] Phone: tel: fax: Referral ID Status Reason Start Date Expiration Date Visits Re quested Visits Authorized [id number] Closed 07/27/2025 01/26/2027 1 1 Reason for Visit * Imaging (Routine) - Closed Specialty Diagnoses / Procedures Referred By Radha ramon Referred To Contact Radiology Diagnoses Primary hyperparathyroidism (CMS/HCC) Hypercalcemia Procedures CT Soft Tissue Neck w and wo IV Contrast CT Soft Tissue Neck w IV Contrast Roni Garcia MD [address] [place] [address] Phone: tel: fax: Referral ID Status Reason Start Date Expiration Date Visits Re quested Visits Authorized [id number] Closed 07/27/2025 01/26/2027 1 1 Encounter Details Date Type Department Care Team (Latest Contact Info) Description 08/09/2025 7:00 AM EDT - 08/09/2025 11:59 PM EDT Hospital Encounter [facility] [address] [place] [address] Primary hyperparathyroidism (CMS/HCC); Hypercalcemia Discharge Disposition: Home or Self Care Social History Tobacco Use Types Packs/Day Years [...] on file documented as of this encounter Medications at Time of Discharge acetaminophen (Tylenol) 500 MG tablet Take 1 tablet (500 mg) by mouth every 6 (six) hours if needed. amLODIPine (Norvasc) 5 MG tablet Take 1 tablet (5 mg) by mouth 1 (one) time each day. 10/09/2023 metoprolol succinate XL (Toprol-XL) 25 MG 24 hr tablet Take 1 tablet (25 mg) by mouth 1 (one) time each day. 10/09/2023 documented as of this encounter Miscellaneous Notes * Trina Quintana - 08/09/2025 7:14 AM EDT Images from the original note were not included. 1639 Caring for Yourself after Contrast Imaging If you had ORAL contrast: ? You can go back to your normal diet and activities as tolerated. ? Drink plenty of fluids, unless told otherwise. If you had IV contrast: ? You can go back to your normal diet and activities as tolerated. ? Drink plenty of fluids, unless told otherwise. ? Leave a bandage on the site for 30 minutes (where the IV was inserted or blood was drawn). If you had Intravesical (bladder) contrast: ? Return to normal diet and activity. What you need to know about delayed reaction to IV contrast What is IV Contrast? ? Contrast is a dye that is put into your body through an IV. ? It is used for imaging scans such as CT scans and MRIs. ? The contrast makes blood vessels, organs and other parts of your body show up better on the scan. What do I need to do after IV contrast? ? Drink lots of fluids. This will help flush the contrast out of your system. ? Drink 2-3 extra glasses or bottles of water within 4 hours of your scan. What is a contrast reaction? ? A contrast reaction is a bad side effect from the contrast dye. ? It is rare but it does happen. ? They can be mild - such as sneezing, itching, or hives. ? They can be severe - such as trouble breathing, throat swelling, and irregular heart beat. When do these reactions happen? ? They often happen right after the contrast is injected. ? Some happen hours after going home. Go to the nearest Emergency Department right away if you have any of these symptoms after you leavethe clinic or hospital. ? Sneezing ? Itching in your mouth, throat, eyes, ears, or skin ? Rash or hives ? Throwing up or stomach sickness ? High heart rate or ?racing? of your heart ? Feeling dizzy or woozy ? Feeling short of breath or like you can?t take a deep breath ? Feeling very anxious for no other reason It is very important that these reactions be treated. Tell the doctor or nurse that you are having a reaction to IV contrast dye. Do not ignore any sign of a reaction! All reactions must be assessed by a doctor. Call 911 if you are alone and your reaction is more than mild sneezing or itching. If you have a mild reaction, call to speak with a Radiologist, explain that you havehad a contrast reaction, as this needs to be added to your medical record. documented in this encounter Plan of Treatment Upcoming Encounters Date Type Department Care Team (Late st Contact Info) Description 09/06/2025 1:00 PM EST Consult Medical Office Building [facility] [address], [address] [place] [address] Garo Fonseca MD [address] [address] documented as of this encounter Procedures Procedure Name Priority Date/Time Associated Diagnosis Comments CT SOFT TISSUE NECK W AND WO IV CONTRAST Routine 08/09/2025 7:43 AM EDT Primary hyperparathyroidism (CMS/HCC) Hypercalcemia documented in this encounter Results * CT Soft Tissue Neck w and wo IV Contrast (08/09/2025 7:43 AM EDT) Anatomical Region Laterality Modality Neck Computed Tomogra phy Impressions 08/10/2025 12:45 PM EDT 1. Probable adenoma in the right lower pole tracheoesophageal groove, 10 mm maximum diameter with a polar vessel 2. No other findings to suggest parathyroid adenoma 3. Nonenhancing 16mm nodule at the inferior left thyroid pole. This could be thyroid in origin or a lymph node. Adenoma is considered unlikely given lack of enhancement 4. Ultrasound of the thyroid is recommended to confirm and characterize the tracheoesophageal groove mass and the left inferior thyroid pole lesion Case finalized on 08/10/25 12:45 EDT Jenny Cota M.D. This report has been electronically signed and verified by the Radiologist whose name is printed above. This report contains privileged and confidential information and is intended solely for the use of the individual or entity to which it is addressed. If you are not the intended recipient of this report, you are hereby notified that any copying, distribution, dissemination or action taken in relation to the contents of this report is strictly prohibited and may be unlawful. If you have received this report in error, please notify the sender immediately at [phone] and permanently delete the original report and destroy any copies or printouts. Narrative 08/10/2025 12:45 PM EDT [facility] - Phone Outpatient NAME: JewelsRadha buchanan Sarah DATE OF EXAM: 08/09/2025 Patient No: [id number] Physician: Mayte Date of : 1975 Past Medical/Surgical History (entered by technologist): Primary hyperparathyroidism Symptoms/Reason For Exam (entered by technologist): hyperparathyroidism; Hypercalcemia Tech Notes (entered by technologist): iohexol (OMNIPaque) 350 MG/ML injection 100 mL Examination: 4D CT with IV contrast for parathyroid adenoma Technique: Neck was scanned before intravenous contrast, at 25 seconds after contrast and at 55 seconds after contrast in order to identify a parathyroid adenoma. Multiplanar sagittal and coronal reformations were performed Omnipaque 350 100 mL administered intravenously without reported complications DLP: 1619 mGy/cm Comparison: No prior neck imaging FINDINGS: Probable adenoma: Right lower pole, in the deep tracheoesophageal groove. 10 mm maximum diameter Polar vessel is present Noncontrast: Se 4/Im 34 coronal reformations: 25 seconds: coronal reformatted: Se 7/Im 188 55 seconds: Se 11/Im 190-195 Se 13/IIm 52 There is a nonenhancing left pretracheal nodule at the inferior left thyroid lobe. Lesion is 16 mm wide by 10 mm CC. Se 13/Im 45. This is not seen on the 25 second exam because of venous artifact. No aggressive osseous lesions. No significant carotid bifurcation stenosis. No lesions are seen in the upper aerodigestive tract. Procedure Note Ny Cota MD - 08/10/2025 [facility] - Phone Outpatient NAME: Radha Donis Sarah DATE OF EXAM: 08/09/2025 Patient No: [id number] Physician: Mayte Date of : 1975 Past Medical/Surgical History (entered by technologist): Primaryhyperparathyroidism Symptoms/Reason For Exam (entered by technologist): hyperparathyroidism;Hypercalcemia Tech Notes (entered by technologist): iohexol (OMNIPaque) 350 MG/MLinjection 100 mL Examination: 4D CT with IV contrast for parathyroid adenoma Technique: Neck was scanned before intravenous contrast, at 25 secondsafter contrast and at 55 seconds after contrast in order to identify aparathyroid adenoma. Multiplanar sagittal and coronal reformations were performed Omnipaque 350 100 mL administered intravenously without reportedcomplications DLP: 1619 mGy/cm Comparison: No prior neck imaging FINDINGS: Probable adenoma: Right lower pole, in the deep tracheoesophageal groove.10 mm maximum diameter Polar vessel is present Noncontrast: Se 4/Im 34 coronal reformations: 25 seconds: coronal reformatted: Se 7/Im 188 55 seconds: Se 11/Im 190-195 Se 13/IIm 52 There is a nonenhancing left pretracheal nodule at the inferior leftthyroid lobe. Lesion is 16 mm wide by 10 mm CC. Se 13/Im 45. This is not seen on the 25 second exam because of venous artifact. No aggressive osseous lesions. No significant carotid bifurcation stenosis. No lesions are seen in the upper aerodigestive tract. IMPRESSION: 1. Probable adenoma in the right lower pole tracheoesophageal groove, 10mm maximum diameter with a polar vessel 2. No other findings to suggest parathyroid adenoma 3. Nonenhancing 16mm nodule at the inferior left thyroid pole. Thiscould be thyroid in origin or a lymph node. Adenoma is consideredunlikely given lack of enhancement 4. Ultrasound of the thyroid is recommended to confirm and characterizethe tracheoesophageal groove mass and the left inferior thyroid polelesion Case finalized on 08/10/25 12:45 EDT Jenny Cota M.D. This report has been electronically signed and verified by the Radiologistwhose name is printed above. This report contains privileged and confidential information and isintended solely for the use of the individual or entity to which it isaddressed. If you are not the intended recipient of this report, you arehereby notified that any copying, distribution, dissemination or actiontaken in relation to the contents of this report is strictly prohibitedand may be unlawful. If you have received this report in error, pleasenotify the sender immediately at [phone] and permanently delete theoriginal report and destroy any copies or printouts. Roni Garcia MD [facility] [place]ED[place] Final Resul t documented in this encounter Visit Diagnoses Diagnosis Primary hyperparathyroidism (CMS/HCC) Primary hyperparathyroidism Hypercalcemia documented in this encounter Administered Medications Inactive Administered Medications - up to 3 most recent administrations Medication Order MAR Action Action Date Dose Rate Site iohexol (OMNIPaque) 350 MG/ML injection 100 mL 100 mL, Intravenous, Once in imaging, 1 dose, Starting on Sat08/09/25 at 0714, Until Sat08/09/25 at 0744, Routine, Imaging Protocol Orders Given 08/09/2025 7:44 AM EDT 100 mL documented in this encounter Additional Health Concerns Assessment Noted Time A Body Mass Index follow-up plan has been documented for the patient 07/27/2024 3:45 PM EDT documented as of this encounter Care Teams Global Safety Officer Relationship Specialty Start Date End Date Phuong Perez MD PCP - General 11/13/23 documented as of this encounter
--- OUTSIDE RECORDS SUMMARY | 2025-08-20 14:57 | XMS_ITS | Clinical Summary ---
Author Organization [facility] Address [address] [place] [address] Care Team Providers Care Trainman Name Role Phone Rito Bobby Gama Primary [...] 2 (Two) Times a Week. 5 Active cholecalcifero l (VITAMIN D3) 1.25 MG (94012 UT) capsule Take 1 capsule by mouth Every 7 (Seven) Days. 12 capsule 5 Active Needle, Disp, 25G X 1 misc Inject 1 each as directed Daily. For B12 injections 14 each 5 07/23/20 25 Discontin ued(*Ther apy completed ) Cholecalcifero l 1.25 MG (40501 UT) tablet Take 1 tablet by mouth [...] Encounters Date Type Department Care Team Description 08/03/2025 Results Follow-Up [facility] BARIATRIC SURGERY [address] [place] [address] Christine Connell APRN 07/23/2025 11:30 AM EDT Office Visit [facility] BARIATRIC SURGERY [address] [place] [address] Christine Connell, SOFA INSPECTOR Morbid obesity with BMI of 50.0-59.9, adult (Primary Dx); Intestinal malabsorption, unspecified type; Vitamin D deficiency; Abnormal blood level of iron; Fatigue, unspecified type 07/23/2025 Travel from Last 3 Months Immunizations Immunization Administration Dates Next Due Influenza Injectable Mdck Pf Quad 09/08/2021 Family History Medical History Relation Name Comments Heart attack Brother Garo Rashawn Harp Hypertension Brother Garo Rashawn Harp Obesity Brother Garo Morocho Harp Arrhythmia Father Chris East Harp Diabetes Father Chris East Harp Heart attack Father Chris [place] Harp Heart disease Father Chris Ray Harp Hypertension Father Chris Ray Harp Obesity Father Chris Ray Harp Sleep apnea Father Chris [place] Harp Heart attack Maternal Grandfather Garo Andrea Hypertension Maternal Grandfather Garo Andrea Stomach cancer Maternal Grandfather Garo Laiglmarcus Stroke Maternal Grandfather Garo Laiglmarcus Hypertension Maternal Grandmother Shannan Fregoso Lung cancer Maternal Grandmother Shannan Fregoso Diabetes type II Mother Anita True Heart attack Mother Anita True Heart disease Mother Anita True Hypertension Mother Anita True Breast cancer Paternal Grandmother Ivarene Rodrick Becr aft Diabetes Paternal Grandmother Ivarene Rodrick Becra ft Heart attack Paternal Grandmother Ivarene Rodrick Becra ft Heart disease Paternal Grandmother Ivarene Rodrick Becr aft Hypertension Paternal Grandmother Ivarene Rodrick Becra ft Obesity Paternal Grandmother Ivarene Rodrick Becra ft Obesity Sister Relation Name Status Comments Brother Garo Kempp Father Chris [place] Harp Maternal Grandfather Garo Andrea Maternal Grandmother Shannan Fregoso Mother Anita True Paternal Grandfather Paternal Grandmother Ivrica Rodrick Becraft Sister Social History Tobacco Use [...] or training? Not on file Preferred Language Nauruan 10/15/2024 Comments No Sex and Gender Information [...] Description 10/25/2025 8:00 AM EST Office Visit [facility] BARIATRIC SURGERY [address] [facility] [address] [place] [address] Christine Connell, SOFA INSPECTOR [address] [place] [address] Health Maintenance Due Date Last Done Comments [...] this topic Medical Devices Implanted Type Area Merchandise Buyer Device Identifier Shelf Expiration Date Model / Serial / Lot Reload Stplr Yeager Flex Gst Stnd 60 Wht - [id number] Implanted:Qty : 4 on 10/22/2024 by Ezequiel Beverly MD at [facility] Implant N/A: Abdomen [employer] ENDO SURGERY DIV OF J AND J 12/25/2026 [id number] / / [id number] Dev Contrl Tiss Stratafix Spiral Pds Pls 3/0 0 15cm Silvana - [id number] Implanted:Qty : 1 on 10/22/2024 by Ezequiel Beverly MD at [facility] Implant N/A: Abdomen ETHICON DIV OF J AND J 02/24/2026 [id number] / / [id number] Dev Contrl Tiss Stratafix Spiral Pds Pls 3/0 0 15cm Silvana - [id number] Implanted:Qty : 1 on 10/22/2024 by Ezequiel Beverly MD at [facility] Implant N/A: Abdomen ETH[employer]ON DIV OF J AND J 02/24/2026 [id number] / / [id number] Dev Cls Wnd Vloc/Pbt Margret Nonabs 1/2cir Sz2/0 26mm 15cm Krishna - [id number] Implanted:Qty : 3 on 10/22/2024 by Ezequiel Beverly MD at [facility] Implant N/A: Abdomen COVIDIEN 03/27/2027 [id number] / / [id number] Stplr Tiss [id number] Lng [id number] Strl 1p/U - [id number] Implanted:Qty : 1 on 10/22/2024 by Ezequiel Beverly MD at [facility] Implant N/A: Abdomen [employer] ENDO SURGERY DIV OF J AND J 12/25/2026 [id number] / / [id number] Procedures Procedure Name Priority Date/Time Associated Diagnosis Comments CBC AND DIFFERENTIAL Routine 07/23/2025 11:55 AM [...] Fatigue, unspecified type METHYLMALONIC ACID, SERUM Routine 07/23/2025 11:55 AM [...] Health Maintenance Results * Methylmalonic Acid, Serum (07/23/2025 11:55 AM EDT) Methylmalonic Acid 147 0 - 378 nmol/L [facility] Blood 07/23/2025 11:5 5 AM EDT 07/23/2025 Narrative [facility] ([facility]) - 07/31/2025 4:08 AM EDT Test(s) 312293-Dzuulkrkkqkrl Acid, Serum was developed and its performance characteristics determined by [facility]. It has not been cleared or approved by the Food and Drug Administration. Performed at: 02 - [address] [id number] Behaviorist: Maria Victoria Reed MD, Phone: [phone] Patient Fasting: N Christine Connell APRN LAB BLOOD ORDERABLES Final Res ult Performing Organization Address City/[facility]/ZIP Co de Phone Number [facility] [address] [place] [address], [place] [phone] [facility] [address] [place] [address], [place] [phone] * Copper, Serum (07/23/2025 11:55 AM EDT) Copper 151 80 - 158 ug/dL [facility] Comment:Detection Limit = 5 Blood 07/23/2025 11:5 5 AM EDT 07/23/2025 Narrative [facility] - 07/31/2025 4:08 AM EDT Test(s) 726122-Hyotzl, Serum or Plasma was developed and its performance characteristics determined by [employer] It has not been cleared or approved by the Food and Drug Administration. Performed at: 02 - [address] [id number] Behaviorist: Maria Victoria Reed MD, Phone: [phone] Patient Fasting: N Christine Connell APRN LAB BLOOD ORDERABLES Final Res ult Performing Organization Address City/[facility] Co de Phone Number [facility] ([facility]) [address] [place] [address], [place] [phone] [facility] [address] [place] [address], [place] [phone] * Vitamin B1, Whole Blood (07/23/2025 11:55 AM EDT) Vitamin B1, Whole Blood 122.7 66.5 - 200.0 nmol/L [facility] Blood 07/23/2025 11:5 5 AM EDT 07/23/2025 [facility] - 07/31/2025 4:08 AM EDT Test(s) 375666-Uwq. B1, Whole Blood was developed and its performance characteristics determined by [employer] It has not been cleared or approved by the Food and Drug Administration. Performed at: [facility] [id number] Behaviorist: Maria Victoria Reed MD, Phone: [phone] Patient Fasting: N Christine Connell APRN LAB BLOOD ORDERABLES Final Res ult Performing Organization Address [facility] de Phone Number [facility] ([facility]) [address] [place] [address], [place] [phone] [facility] [address] [place] [address], [place] [phone] * Zinc (07/23/2025 11:55 AM EDT) Zinc 77 44 - 115 ug/dL [facility] Comment:Detection Limit = 5 Blood 07/23/2025 11:5 5 AM EDT 07/23/2025 Narrative [facility] (AMBULATORY) - 07/31/2025 4:08 AM EDT Test(s) 709831-Dzkx, Plasma or Serum was developed and its performance characteristics determined by [facility]. It has not been cleared or approved by the Food and Drug Administration. Performed at: [facility] [id number] Behaviorist: Maria Victoria Reed MD, Phone: [phone] Patient Fasting: N Christine Connell SOFA INSPECTOR LAB BLOOD ORDERABLES Final Res ult Performing Organization Address [facility] de Phone Number [facility] (AMBULATORY) [address] [place] [address], [place] [phone] [facility] [address] [place] [address], [place] [phone] * Vitamin A (07/23/2025 11:55 AM EDT) Vitamin A 42.9 20.1 - 62.0 ug/dL [facility] Comment: Reference intervals for vitamin A determined from [facility] internal studies. Individuals with vitamin A less than 20 ug/dL are considered vitamin A deficient and those with serum concentrations less than 10 ug/dL are considered severely deficient. This test was developed and its performance characteristics determined by [facility]. It has not been cleared or approved by the Food and Drug Administration. Blood 07/23/2025 11:5 5 AM EDT 07/23/2025 [facility] - 07/31/2025 4:08 AM EDT Performed at: 02 - [address] [id number] Behaviorist: Maria Victoria eRed MD, Phone: [phone] Patient Fasting: N Yext [facility] LAB BLOOD ORDERABLES Final Res ult Performing Organization Address [facility] de Phone Number [facility] ([facility]) [address] [place] [address], [place] [phone] [facility] [address] [place] [address], [place] [phone] * Vitamin K1 (07/23/2025 11:55 AM EDT) [facility] Vitamin K 0.92 0.10 - 2.20 ng/mL [facility] Blood 07/23/2025 11:5 5 AM EDT 07/23/2025 [facility] ([facility] - 07/31/2025 4:08 AM EDT Test(s) 817058-Aklwadu K1 was developed and its performance characteristics determined by [facility]. It has not been cleared or approved by the Food and Drug Administration. Performed at: 02 - [address] [id number] Behaviorist: Maria Victoria Reed MD, Phone: [phone] Patient Fasting: N Yext SOFA INSPECTOR LAB BLOOD ORDERABLES Final Res ult Performing Organization Address [facility] de Phone Number [facility] ([facility]) [address] [place] [address], [place] [phone] [facility] [address] [place] [address], [place] [phone] * (ABNORMAL) Vitamin D,25-Hydroxy (07/23/2025 11:55 AM EDT) 25 Hydroxy, Vitamin D 24.0(L) 30.0 - 100.0 ng/mL [facility] Comment: Vitamin D deficiency has been defined by the [place] of Medicine and an Endocrine Society practice guideline as a level of serum 25-OH vitamin D less than 20 ng/mL (1,2). The Endocrine Society went on to further define vitamin D insufficiency as a level between 21 and 29 ng/mL (2). 1. IOM ([place] of Medicine). 2010. Dietary reference intakes for calcium and D. [place]: The National Academies Press. 2. Feli MF, Hollie NC, Xavier LEONE, et al. Evaluation, treatment, and prevention of vitamin D deficiency: an Endocrine Society clinical practice guideline. JCEM. 2010; 96(7):1911-30. Blood 07/23/2025 11:5 5 AM EDT 07/23/2025 Narrative [facility] (AMBULATORY) - 07/31/2025 4:08 AM EDT Performed at: 01 - [facility] [id number] Behaviorist: John Warren PhD, Phone: [phone] Patient Fasting: N Christine Connell APRN LAB BLOOD ORDERABLES Final Res ult [facility] (AMBULATORY) [address] [place] [address], [facility] [address] [place] [address], * Protime-INR (07/23/2025 11:55 AM EDT) INR 0.9 0.9 - 1.2 [facility] Comment: Reference interval is for non-anticoagulated patients. Suggested INR therapeutic range for Vitamin K antagonist therapy: Standard Dose (moderate intensity therapeutic range): 2.0 - 3.0 Higher intensity therapeutic range 2.5 - 3.5 Protime 10.1 9.1 - 12.0 sec [facility] Blood 07/23/2025 11:5 5 AM EDT 07/23/2025 Narrative [facility] (AMBULATORY) - 07/31/2025 4:08 AM EDT Performed at: 01 - [facility] [address] [place], [place] [id number] Behaviorist: John Warren PhD, Phone: [phone] Patient Fasting: N us Christine Connell APRN LAB BLOOD ORDERABLES Final Res ult [facility] (AMBULATORY) [address] [place] [address], [facility] [address] [place] [address], * (ABNORMAL) CBC & Differential (07/23/2025 11:55 [...] Blood 07/23/2025 11:5 5 AM EDT 07/23/2025 [facility] (AMBULATORY) - 07/31/2025 4:08 AM EDT Performed at: 01 - [address] [id number] Behaviorist: John Warren PhD, Phone: [phone] Patient Fasting: N Christine Connell SOFA INSPECTOR LAB BLOOD ORDERABLES Final Res ult [facility] (AMBULATORY) [address] [place] [address], [facility] [address] [place] [address], * Vitamin E (07/23/2025 11:55 AM EDT) [facility] Vitamin E (Alpha Tocopherol) 12.5 7.0 - 25.1 mg/L [facility] Vitamin E (Gamma Tocopherol) 1.1 0.5 - 5.5 mg/L [facility] Comment: Reference intervals for alpha and gamma-tocopherol determined from National Health and Nutrition Examination Survey, 7101-2519. Individuals with alpha-tocopherol levels less than 5.0 mg/L are considered vitamin E deficient. Blood 07/23/2025 11:5 5 AM EDT 07/23/2025 [facility] (AMBULATORY) - 07/31/2025 4:08 AM EDT Test(s) 322547-Tkasvfg E(Alpha Tocopherol); 848922- Vitamin E(Gamma Tocopherol) was developed and its performance characteristics determined by [employer] It has not been cleared or approved by the Food and Drug Administration. Performed at: 02 - [facility] [address] [id number] Behaviorist: Maria Victoria Reed MD, Phone: [phone] Patient Fasting: N Christine Connell APRN LAB BLOOD ORDERABLES Final Res ult Performing Organization Address [facility] Co de Phone Number [facility] (AMBULATORY) [address] [place] [address], [facility] [address] [place] [id number], [place] [phone] * Prealbumin (07/23/2025 11:55 AM EDT) Prealbumin 21 12 - 34 mg/dL [facility] Blood 07/23/2025 11:5 5 AM EDT 07/23/2025 Narrative [facility] (AMBULATORY) - 07/31/2025 4:08 AM EDT Performed at: - [address] [id number] Behaviorist: John Warren PhD, Phone: [phone] Patient Fasting: N Christine Connell APRN LAB BLOOD ORDERABLES Final Res ult Performing Organization Address [facility] Co de Phone Number [facility] (AMBULATORY) [address] [place] [address], [facility] [address] [place] [address], * Phosphorus (07/23/2025 11:55 AM EDT) Phosphorus 3.2 3.0 - 4.3 mg/dL [facility] Blood 07/23/2025 11:5 5 AM EDT 07/23/2025 Narrative [facility] ([facility]) - 07/31/2025 4:08 AM EDT Performed at: [facility] [address] [id number] Behaviorist: John Warren PhD, Phone: [phone] Patient Fasting: N us Christine Connell SOFA INSPECTOR LAB BLOOD ORDERABLES Final Res ult Performing Organization Address City/[facility]/ZIP Co de Phone Number [facility] ([facility]ULATORY) [address] [place] [address], [place] [phone] [facility] [address] [place] [address], [place] [phone] * (ABNORMAL) PTH, Intact (07/23/2025 11:55 AM EDT) PTH, Intact 151(H) 15 - 65 pg/mL [facility] Blood 07/23/2025 11:5 5 AM EDT 07/23/2025 Narrative [facility] ([facility]) - 07/31/2025 4:08 AM EDT Performed at: - [address] [id number] Behaviorist: John Warren PhD, Phone: [phone] Patient Fasting: N Christine Connell SOFA INSPECTOR LAB BLOOD ORDERABLES Final Res ult Performing Organization Address [facility]/ZIP Co de Phone Number [facility] (AMBULATORY) [address] [place] [address], [place] [phone] [facility] [address] [place] [address], [place] [phone] * Magnesium (07/23/2025 11:55 AM EDT) Magnesium 2.0 1.6 - 2.3 mg/dL [facility] Blood 07/23/2025 11:5 5 AM EDT 07/23/2025 Narrative [facility] ([facility]) - 07/31/2025 4:08 AM EDT Performed at: - [address] [id number] Behaviorist: John Warren PhD, Phone: [phone] Patient Fasting: N Christine Connell SOFA INSPECTOR LAB BLOOD ORDERABLES Final Res ult [facility] (AMBULATORY) [address] [place] [address], [place] [phone] [facility] [address] [place] [address], [place] [phone] * Iron (07/23/2025 11:55 AM EDT) [facility] Iron 59 27 - 159 ug/dL [facility] Blood 07/23/2025 11:5 5 AM EDT 07/23/2025 Narrative [facility] ([facility]) - 07/31/2025 4:08 AM EDT [facility]formed [facility]: - [facility] [address] [place], [place] [id number] Behaviorist: John Warren PhD, Phone: [phone] Patient Fasting: N Christine Connell APRN LAB BLOOD ORDERABLES Final Res ult Performing Organization Address [facility] Co de Phone Number [facility] [address] [place] [address], [place] [phone] [facility] [address] [place] [address], [place] [phone] * Folate (07/23/2025 11:55 AM EDT) [facility] Folate 19.5 >3.0 ng/mL [facility] Comment: A serum folate concentration of less than 3.1 ng/mL is considered to represent clinical deficiency. Blood 07/23/2025 11:5 5 AM EDT 07/23/2025 Narrative [facility] ([facility]) - 07/31/2025 4:08 AM EDT Performed at: - [facility] [address] [place], [place] [id number] Behaviorist: John Warren PhD, Phone: [phone] Patient Fasting: N Christine Connell APRN LAB BLOOD ORDERABLES Final Res ult Performing Organization Address [facility]/ZIP Co de Phone Number [facility] (AMBULATORY) [address] [place] [address], [place] [phone] [facility] [address] [place] [address], [place] [phone] * (ABNORMAL) Ferritin (07/23/2025 11:55 AM EDT) [facility] Ferritin 10(L) 15 - 150 ng/mL [facility] Blood 07/23/2025 11:5 5 AM EDT 07/23/2025 Narrative [facility]) - 07/31/2025 4:08 AM EDT Performed at: - [facility] [address] [place], [place] [id number] Behaviorist: John Warren PhD, Phone: [phone] Patient Fasting: N Christine Connell APRN LAB BLOOD ORDERABLES Final Res ult [facility] [address] [place] [address], [facility] [address] [place] [address], * (ABNORMAL) Comprehensive Metabolic Panel (07/23/2025 11:55 AM EDT) [facility] Glucose 81 70 - 99 mg/dL [facility] [...] - 07/31/2025 4:08 AM EDT Performed at: [address] [id number] Behaviorist: John Warren PhD, Phone: [phone] Patient Fasting: N us Christine Connell APRN LAB BLOOD ORDERABLES Final Res ult Performing Organization Address [facility]/ZIP Co de Phone Number [facility] [address] [place] [address], [facility] [address] [place] [address], [place] [phone] * (ABNORMAL) Lipid Panel (04/22/2024 10:43 AM EDT) [facility] Signature Total Cholesterol 265(H) 100 - 199 mg/dL [...] - 04/23/2024 4:12 PM EDT Performed at: [address] [id number] Behaviorist: John Warren PhD, Phone: [phone] Patient Fasting: N Imelda Jordan MD LAB BLOOD ORDERABLES Fin al Result Performing Organization Address City/[facility]/ZIP Co de Phone Number [facility] ([facility]) [address] [place] [address], [facility] [address] [place] [address], * LIQUID-BASED PAP SMEAR WITH HPV GENOTYPING REGARDLESS OF INTERPRETATION (NETTA,COR,MAD) (10/22/2023 2:35 PM EST) Reference Lab Report [facility] [address] [place] [address] or [phone] Hima Higginbotham M.D., Standpipe Tender PATIENT NAME LABORATORY NO. EAN PRO [id number] AGE SEX SSN CLIENT REF # [facility] 48 1975 F [id number] [facility] LUIS OSBORNE REQUESTING [place] [address] REGINA RAMIREZ DATE COLLECTED DATE RECEIVED DATE REPORTED 10/22/2023 10/22/2023 10/31/2023 ThinPrep Pap with Cytyc Imaging DIAGNOSIS: Negative for intraepithelial lesion or malignancy Multiple factors can influence accuracy of Pap tests; therefore, screening at regular intervals is necessary for early cancer detection. Professional interpretation rendered by Hima Higginbotham M.D., F.C.A.P. at [facility], [address] [place] [address]. RECOMMENDATION: Follow up as clinically appropriate SPECIMEN [...] 51, 52, 56, 58, 59, 66, 68 BASE LOADER: ANALI BERRY (ASCP) REVIEWED, DIAGNOSED AND ELECTRONICALLY SIGNED BY: Hima Higginbotham M.D., F.C.A.P. CPT CODES: 82596, 82428, [id number] 10/31/2023 12:44 PM EST [facility] ThinPrep Vial Cervix uteri structure / Unknown Collection / Unknown 10/22/2023 2:35 PM EST 10/22/2023 2:35 PM EST us Regina Ramirez MD PATHOLOGY/CYTOLOGY ORDERABLES F inal Result [facility]
[address] [place] [address], * SCANNED - MAMMO (08/16/2020) Anatomical Region Laterality Modality Other us Regina Ramirez MD CHART REVIEW TABS Final Resu lt from Last 3 Months or Most Recently Relevant to Health Maintenance Insurance EMPLOYEE Member Subscriber Plan / Payer (Ef fective 2024-Present) Name:Ean Donis Relation to Subscriber:Self Name:Ean Donis Payer ID:[id number] (NAIC) Type:Not on file Address: [facility] [id number] [place] [id number] Advance Directives * CPR (Attempt to Resuscitate) (Latest Code Status on File) Date Activated Date Inactivated Comments 10/22/2024 9:34 AM 10/26/2024 3:19 PM Question Answer Comments Code Status (Patient has no pulse and is not breathing): CPR (Attempt to Resuscitate) Medical Interventions (Patie nt has pulse or is breathing): Full Support Level Of Support Discussed With: Patient Care Teams Trainman Relationship Specialty Start Date End Date Rito Bobby DO [address] [place] [address] PCP - General Internal Medicine 12/17/24
--- OUTSIDE RECORDS SUMMARY | 2025-08-20 14:57 | XMS_ITS | Encounter Summary ---
Author Organization Healthcare Address [address] [place] [address] Care Team Providers Care Ward Helper Name Role Phone Phuong Perez MD Primary Care Provider [phone] Encounter Details Date Type Department Care Team (Late Contact Info) Description 03/01/2025 Orders Only External Location [address] [place] [address] Provider, External Social History Tobacco Use Types [...] Medical Office Building Surgical Specialties [address] [facility], [address] [place] [address] Garo Fonseca MD [address] [place] [phone] documented as of this encounter Procedures [...] documented as of this encounter Care Teams Ward Helper Relationship Specialty Start Date End Date Phuong Perez MD PCP - General 11/13/23 documented as of this encounter
--- OUTSIDE RECORDS SUMMARY | 2025-08-20 14:57 | XMS_ITS | Encounter Summary ---
Author Organization [facility] Address [address] [place] [address] Care Team Providers Care Division Road Supervisor Name Role Phone Rito Bobby Primary Care Provider + Encounter Details Date Type Department Care Team (Late st Contact Info) Description 08/03/2025 Results Follow-Up [facility] [address] [facility] [address] [place] [address] Christine Connell APRN [address] [facility] [address] [place] [id number] Social History Tobacco Use Types Packs/Day Years [...] or training? Not on file Preferred Language Niuean 10/15/2024 Comments No Sex and Gender Information [...] 10/25/2025 8:00 AM EST Office Visit [facility] [address] [facility] [address] [place] [address] Christine Connell, ALLYSSA [address] [place] [address] documented as of this encounter Visit Diagnoses Not on filedocumented in this encounter Care Teams Division Road Supervisor Relationship Specialty Start Date End Date Rito Bobby DO [address] [place] [address] PCP - General Internal Medicine 12/17/24 documented as of this encounter
--- OUTSIDE RECORDS SUMMARY | 2025-08-20 14:57 | XMS_ITS | Encounter Summary ---
Author Organization [facility] Address [address] [place] [address] Care Team Providers Care Optimization Consultant Name Role Phone Phuong Perez MD Primary Care Provider [phone] Reason for Referral * Consultation (Routine) - Closed Specialty Diagnoses / Procedures Referred By Contact Referred To Contact Gynecology / Obstetrics and Gynecology Diagnoses Abnormal uterine bleeding Phuong Perez MD [address] [facility] [address] [place] [address] Phone: tel: fax: Referral ID Status Reason Start Date Expiration Date V isits Requested Visits Authorized [id number] Closed Specialty Services Required 11/12/2023 05/13/2025 1 1 Encounter Details Date Type Department Care Team ([facility] Contact Info) Description 11/12/2023 [facility] [address] [place] [address] Phuong Perez MD [address] [place] [phone] Abnormal uterine bleeding (Primary Dx) Social History [...] Upcoming Encounters Date Type Department Care Team ([facility] Contact Info) Description 09/06/2025 1:00 PM EST Consult Medical Office Building Surgical Specialties [address] [facility], [address] [place] [address] Garo Fonseca MD [address] [address] Scheduled Referrals Name Type Priority Associated Diagnoses Order Schedule Ambulatory referral to Gynecology Outpatient Referral Routine Abnormal uterine bleeding 1 Occurrences starting 11/12/2023 until 05/12/2025 documented as of this encounter Visit Diagnoses Diagnosis Abnormal uterine bleeding- Primary Unspecified disorder of menstruation and other abnormal bleeding from female genital tract documented in this encounter Care Teams Optimization Consultant Relationship Specialty Start Date End Date Phuong Perez MD PCP - General 11/13/23 documented as of this encounter
--- OUTSIDE RECORDS SUMMARY | 2025-08-20 14:58 | XMS_ITS | Encounter Summary ---
Author Organization [facility] Address [address] [place] [address] Care Team Providers Care Police Officer Crime Prevention Name Role Phone Phuong Perez MD Primary Care Provider [phone] Encounter Details Date Type Department Care Team (Latest Contact Info) Description 08/09/2025 Travel Social History Tobacco Use Types Packs/Day [...] Medical Office Building Surgical Specialties [address] [facility], [address] [place] [address] Garo Fonseca MD [address] [address] documented as of this encounter Visit Diagnoses Not on filedocumented in this encounter Additional Health Concerns Assessment Noted Time A Body Mass Index follow-up plan has been documented for the patient 07/27/2024 3:45 PM EDT documented as of this encounter Care Teams Police Officer Crime Prevention Relationship Specialty Start Date End Date Phuong Perez MD PCP - General 11/13/23 documented as of this encounter
--- OUTSIDE RECORDS SUMMARY | 2025-08-20 14:58 | XMS_ITS | Clinical Summary ---
Author Organization Healthcare Address [address] [place] [address] Care Team Providers Care Spray Mixer Name Role Phone Phuong Perez MD Primary Care Provider [phone] Allergies Active Allergy Reactions Criticality Noted Date [...] Abnormal uterine bleeding (AUB) 07/27/2024 Adenomyosis 07/27/2024 Encounters Date Type Department Care Team Description 08/09/2025 7:00 AM EDT - 08/09/2025 11:59 PM EDT Hospital Encounter [facility] [address] [facility] [address] [place] [phone] Primary hyperparathyroidism (CMS/HCC); Hypercalcemia Discharge Disposition: Home or Self Care 08/09/2025 Travel from Last 3 Months Immunizations Immunization Administration Dates Next Due Influenza, [...] Medical Office Building Surgical Specialties [address] [facility], [address] [place] [address] Garo Fonseca MD [address] [phone] Health Maintenance Due Date Last Done Comments [facility]-Depression Screening 1975 [facility]-HIV Screening 1975 [facility]-Hepatitis C Screening 1975 [facility]-Infant/Child/Adol SDOH Screenings 1975 [facility]- SDOH Screenings 1994 [facility]-Adult SDOH Screenings 1994 [facility]-DTaP,Tdap,and Td Vaccine s (1 - Tdap) 1995 [facility]-Hepatitis B Vaccines (1 of 3 - 19+ 3-dose series) 1995 CT Colonography 2021 Colonoscopy 2021 FIT-DNA 2021 FIT 2021 FOBT 2021 Sigmoidoscopy 2021 [facility]-Colorectal Cancer Screening 2021 [id number] Vaccine ( season) 2025 09/08/2021, 01/19/2021, 12/22/2020 [facility]-Influenza Vaccine (#1) 2025 09/08/2021 [facility]-Zoster Vaccines (1 of 2) 2026 [facility]-Cervical Cancer Screening Discontinued [facility]-Pap Smear Discontinued 10/22/2023 [facility]-Obesity Intervention Completed 024, 06/09/2024 HPV Vaccines Aged Out No longer eligi ble based on patient's age to complete this topic [facility]-HIB Vaccines Aged Out No longer e ligible based on patient's age to complete this topic [facility]-HPV/Cotest Discontinued [facility]-Hepatitis A Vaccines Aged Out No longer eligible based on patient's age to complete this topic [facility]-IPV Vaccines Aged Out No longer e ligible based on patient's age to complete this topic [facility]-Pneumococcal Vaccine: Pediatrics (0 to 5 Years) and At-Risk Patients (6 to 49 Years) Aged Out No longer eligible based on patient's age to complete this topic [facility]-Rotavirus Vaccines Aged Out No lo nger eligible based on patient's age to complete this topic Procedures Procedure Name Priority Date/Time Associated Diagnosis Comments CT SOFT TISSUE NECK W AND WO IV CONTRAST Routine 08/09/2025 7:43 AM EDT Primary hyperparathyroidism (CMS/HCC) Hypercalcemia from Last 3 Months Results * CT Soft Tissue Neck w [...] error, please notify the sender immediately at [phone] and permanently delete the original report and destroy any copies or printouts. Narrative 08/10/2025 12:45 PM EDT [employer] - Phone Outpatient NAME: Radha Donis Sarah DATE OF EXAM: 08/09/2025 Patient No: [id number] Physician: Mayte Date of : 1975 Past [...] [facility]iology - Phone Outpatient NAME: Radha Donis DATE OF EXAM: 08/09/2025 Patient No: [id number] Physician: Mayte Date of : 1975 Past [...] is present Noncontrast: Se 4/Im 34 coronal reformations:5/55 25 seconds: 10/33 coronal reformatted: 8/52 Se 7/Im 188 55 seconds: Se 11/Im [...] in error, pleasenotify the sender immediately at [phone] and permanently delete theoriginal report and destroy any copies or printouts. Roni Garcia MD IMG CT PROCEDURES Final Resul t from Last 3 Months Insurance ANTH Care Teams Spray Mixer Relationship Specialty Start Date End Date Phuong Perez MD PCP - General 11/13/23
--- OUTSIDE RECORDS SUMMARY | 2025-08-20 14:58 | XMS_ITS | Encounter Summary ---
Author Organization [facility] Address [address] [place] [address] Care Team Providers Care Soap Slabber Name Role Phone Rito Bobby Primary Care [...] or training? Not on file Preferred Language Urdu 10/15/2024 Comments No Sex and Gender Information Value Date Recorded Sex Assigned at Female 04/16/2025 9:07 AM EDT Legal Sex Female 10:48 AM EDT Gender Identity Not on file Sexual Orientation Straight 04/16/2025 9: 07 AM EDT documented as of this encounter Plan of Treatment Upcoming Encounters Date Type Department Care Team (Late st Contact Info) Description 10/25/2025 8:00 AM EST Office Visit [facility] [address] [facility] [address] [place] [address] Christine Connell, UNIT SECRETARY [address] [place] [address] documented as of this encounter Visit Diagnoses Not on filedocumented in this encounter Care Teams Soap Slabber Relationship Specialty Start Date End Date Rito Bobby DO [address] [place] [address] PCP - General Internal Medicine 12/17/24 documented as of this encounter
--- NOTE | 2025-08-20 15:30 | US_ITS ---
FINAL REPORT TECHNIQUE: Limited sonographic images of the thyroid were obtained. CLINICAL HISTORY: thyroid nodules FINDINGS: The thyroid is normal in size. Multiple bilateral thyroid nodules are identified. Largest nodule on the right is a 17 mm TR4 hypoechoic lesion. There is also a 16mm oval TR 4 lesion in the anterior right lobe. There is a 10 mm right thyroid cyst. There is a 9 mm complex cyst on the left lobe. IMPRESSION: Two, TR 4 lesions in the right lobe exceeding 15 mm. Ultrasound directed biopsy is recommended for the larger lesion. Reviewed, Interpreted and Dictated by Miles Khanna MD Transcribed by Samra Gunter Authenticated and . [facility]
== END 2025-08-20 23:59 | disposition home or self-care (01) ==
LOC: RAD 14:54
PROVIDERS: PCP Internal Medicine; Visit Provider Student in an Organized Health Care Education/Training Program
DX: E04.2 Nontoxic multinodular goiter (principal)
CPT/HCPCS: 76536

== ENCOUNTER 2025-08-27 07:43 | Outpatient (CLI) | payer BC, SELFPAY ==
--- OUTSIDE RECORDS SUMMARY | 2024-05-18 08:35 | XMS_ITS | Encounter Summary ---
Author Organization [facility] Address [address] [place] [address] Care Team Providers Care Boiler Cleaner Name Role Phone Ladarius Liang MD Primary Care Provider [phone] Encounter Details Date Type Department Care Team (Late st Contact Info) Description 05/18/2024 8:35 AM EDT Hospital Encounter [facility] PULMONARY & CRITICAL CARE MEDICINE [address] [place] [address] [phone] Social History Tobacco Use Types Packs/Day Years [...] or training? Not on file Preferred Language Armenian 10/15/2024 Comments No Sex and Gender Information [...] 10/22/2024 6:00 AM Alicia Sagastume RN * [place] Suicide Severity Rating Scale (Screener/Recent Self-Report) Question Answer Date of Assessment Author 6. Suicidal Behavior (Lifetime) No 6:00 AM Alicia Bradford RN documented as of this encounter Plan of Treatment Upcoming Encounters Date Type Department Care Team (Late st Contact Info) Description 10/25/2025 8:00 AM EST Office Visit [facility] BARIATRIC SURGERY [address] [facility] [place] [place] [address] Christine Connell, ALLYSSA [address] [place], [place] [phone] documented as of this encounter Procedures Procedure [...] MD 05/19/2024 9:17 PM EDT Workstation ID: [id number] Narrative 05/19/2024 9:17 PM EDT XR CHEST [...] MD 05/19/2024 9:17 PM EDT Workstation ID: [id number] Mikayla Mitchell APRN IMG DIAGNOSTIC IMAGING ORDER MOISÉS Final Result documented in this encounter Visit Diagnoses Not on filedocumented in this encounter Care Teams Boiler Cleaner Relationship Specialty Start Date End Date Ladarius Liang MD [address] [place] [address] PCP - General Family Medicine 07/20/16 12/16/24 documented as of this encounter
--- OUTSIDE RECORDS SUMMARY | 2025-07-23 11:30 | XMS_ITS | Encounter Summary ---
Author Organization [facility] Address [address] [place] [address] Care Team Providers Care Stain Dipper Name Role Phone Rito Bobby Gama Primary Care Provider + Encounter Details Date Type Department Care Team (Late st Contact Info) Description 07/23/2025 11:30 AM EDT Office Visit [facility] BARIATRIC SURGERY [address] [facility] [address] [place] [address] Kathryn Mendez, BOOMBOAT OPERATOR [address] [address] Morbid obesity with BMI of [...] or training? Not on file Preferred Language Australian 10/15/2024 Comments No Sex and Gender Information Value Date Recorded Sex Assigned at Female 04/16/2025 9:07 AM EDT Legal Sex Female 10:48 AM EDT Gender Identity Not on file Sexual Orientation Straight 04/16/2025 9: 07 AM EDT documented as of this encounter Last Filed Vital Signs Vital Sign Reading Time Taken Comments Blood Pressure 124/80 07/23/2025 11:17 AM EDT Pulse 87 07/23/2025 11:17 AM EDT Temperature 36.1 C (96.9 F) 07/23/2025 11:17 AM EDT Respiratory Rate 18 07/23/2025 11:17 AM EDT Oxygen Saturation 98% 07/23/2025 11:17 AM EDT Inhaled Oxygen Concentration - - Weight 125 kg (275 lb) 07/23/2025 11:17 AM EDT Height 157.5 cm (5' 2 ) 07/23/2025 11:17 AM EDT Body Mass Index 50.3 07/23/2025 11:17 AM EDT documented in this encounter Progress Notes * Kathryn Mendez APRN - 07/23/2025 11:30 AM EDTAddended by: KATHRYN MENDEZ on: 08/03/2025 03:31 PM Modules accepted: Orders * Kathryn Mendez, BOOMBOAT OPERATOR - 07/23/2025 11:30 AM EDT [facility] Bariatric Surgery [address] [place] [address] [facility] [address] Patient Name: Radha Donis : 1975 Date of Visit: 07/23/2025 Reason for Visit: 9 months post op HPI: Radha Donis is a 50 y.o. female s/p lap BPD/DS/SBR 10/22/24 GDW, previous lap RNY 2002 Dr. Dockery Has had 12 lbs weight gain when she stopped Chlorthalidone, got up to 284 lbs. On Wegovy 0.5 mg currently, plans to increase to 1 mg next week. Tolerating well, notices appetite suppression, change in tastes. Saw Endocrinology. Planning surgery for parathyroid by end of year. Dr. Garcia @ [facility] ENT. Doing well. Denies dysphagia, reflux, nausea, vomiting, and abdominal pain. Having BM daily, soft -increasing fiber helped. Getting 100-120g prot/day. Drinking 1 protein shake per day. Eating 2 meals, plus 1-2 snacks. Drinking 64 fluid oz/day. Physical activity: walking w/ hand weights 3-4x/wk . Labs 04/22/25- high PTH, low ferritin, high copper, high calcium. Advised to start daily PO iron. Taking Patches: x4 plus PO iron. Presurgery weight: 333 pounds. Today's weight is 125 kg (275 lb) pounds, today's Body mass index is50.3 kg/m??., and weight loss since surgery is 58 pounds. Past Medical History: Diagnosis Date Abnormal [...] DILATION AND CURETTAGE, DIAGNOSTIC / THERAPEUTIC N/A 2015 with uterine ablation ENDOSCOPY N/A 07/02/2024 Procedure: [...] Outpatient Medications Marked as Taking for the 07/23/25 encounter (Office Visit) with Kathryn Mendez APRN Medication Sig Dispense Refill estradiol (ESTRACE) 0.1 MG/GM vaginal cream Insert 2 g into the vagina 2 (Two) Times a Week. losartan (COZAAR) 25 MG tablet Take 1 tablet by mouth Daily. NON FORMULARY Bariatric patches: Multi vitamin, Vit B12,Iron, Calium polyethylene glycol (MiraLax) 17 g packet Take 17 g by mouth Daily As Needed. Semaglutide-Weight Management (Wegovy) 0.25 MG/0.5ML solution auto-injector Inject 0.5 mL under theskin into the appropriate area as directed. weekly Tavaborole 5 % solution use 1 application topically daily Allergies Allergen Reactions Lisinopril Anaphylaxis Social History Socioeconomic History Marital status: Number of children: 2 Tobacco Use Smoking status: Never Smokeless tobacco: Never Vaping Use Vaping status: Never Used Substance and Sexual Activity Alcohol use: Never Drug use: No Sexual activity: Yes Partners: Male control/protection: Tubal ligation Social History Social History Narrative Patient is and resides in [place], [place]. 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 BP 124/80 Pulse 87 Temp 96.9 ??F (36.1 ??C) (Temporal) Resp 18 Ht 157.5 cm (62 ) Wt 125 kg (275 lb) SpO2 98% BMI 50.30 kg/m?? Physical Exam Constitutional: Appearance: She is well-developed. Cardiovascular: Rate and Rhythm: Normal rate. Pulmonary: Effort: Pulmonary effort is normal. Musculoskeletal: General: Normal range of motion. Neurological: Mental Status: She is alert. Psychiatric: Thought Content: Thought content normal. Judgment: Judgment normal. Assessment: 9 months s/p lap BPD/DS/SBR 10/22/24 GDW, previous [...] and documenting information in the medical record. Kathryn Mendez APRN documented in this encounter Plan of Treatment Upcoming Encounters Date Type Department Care Team (Late st Contact Info) Description 10/25/2025 8:00 AM EST Office Visit [facility] BARIATRIC SURGERY [address] [place] [address] [place] [address] Kathryn Mendez APRN [phone] [phone] documented as of this encounter Procedures Procedure Name Priority Date/Time Associated Diagnosis Comments METHYLMALONIC ACID, SERUM Routine 07/23/2025 11:55 AM EDT Morbid obesity with BMI of 50.0-59.9, adult Intestinal malabsorption, unspecified type Vitamin D deficiency Abnormal blood level of iron Fatigue, unspecified type COPPER, SERUM Routine 07/23/2025 11:55 AM EDT Morbid obesity with BMI of 50.0-59.9, adult Intestinal malabsorption, unspecified type Vitamin D deficiency Abnormal blood level of iron Fatigue, unspecified type VITAMIN B1, WHOLE BLOOD Routine 07/23/2025 11:55 AM EDT Morbid obesity with BMI of 50.0-59.9, adult Intestinal malabsorption, unspecified type Vitamin D deficiency Abnormal blood level of iron Fatigue, unspecified type ZINC Routine 07/23/2025 11:55 AM EDT Morbid obesity with BMI of 50.0-59.9, adult Intestinal malabsorption, unspecified type Vitamin D deficiency Abnormal blood level of iron Fatigue, unspecified type VITAMIN A Routine 07/23/2025 11:55 AM EDT Morbid obesity with BMI of 50.0-59.9, adult Intestinal malabsorption, unspecified type Vitamin D deficiency Abnormal blood level of iron Fatigue, unspecified type VITAMIN K1 Routine 07/23/2025 11:55 AM EDT Morbid obesity with BMI of 50.0-59.9, adult Intestinal malabsorption, unspecified type Vitamin D deficiency Abnormal blood level of iron Fatigue, unspecified type VITAMIN D,25-HYDROXY Routine 07/23/2025 11:55 AM EDT Morbid obesity with BMI of 50.0-59.9, adult Intestinal malabsorption, unspecified type Vitamin D deficiency Abnormal blood level of iron Fatigue, unspecified type PROTIME-INR Routine 07/23/2025 11:55 AM EDT Morbid obesity with BMI of 50.0-59.9, adult Intestinal malabsorption, unspecified type Vitamin D deficiency Abnormal blood level of iron Fatigue, unspecified type CBC AND DIFFERENTIAL Routine 07/23/2025 11:55 AM EDT Morbid obesity with BMI of 50.0-59.9, adult Intestinal malabsorption, unspecified type Vitamin D deficiency Abnormal blood level of iron Fatigue, unspecified type VITAMIN E Routine 07/23/2025 11:55 AM EDT Morbid obesity with BMI of 50.0-59.9, adult Intestinal malabsorption, unspecified type Vitamin D deficiency Abnormal blood level of iron Fatigue, unspecified type PREALBUMIN Routine 07/23/2025 11:55 AM EDT Morbid obesity with BMI of 50.0-59.9, adult Intestinal malabsorption, unspecified type Vitamin D deficiency Abnormal blood level of iron Fatigue, unspecified type PHOSPHORUS Routine 07/23/2025 11:55 AM EDT Morbid obesity with BMI of 50.0-59.9, adult Intestinal malabsorption, unspecified type Vitamin D deficiency Abnormal blood level of iron Fatigue, unspecified type PTH, INTACT Routine 07/23/2025 11:55 AM EDT Morbid obesity with BMI of 50.0-59.9, adult Intestinal malabsorption, unspecified type Vitamin D deficiency Abnormal blood level of iron Fatigue, unspecified type MAGNESIUM Routine 07/23/2025 11:55 AM EDT Morbid obesity with BMI of 50.0-59.9, adult Intestinal malabsorption, unspecified type Vitamin D deficiency Abnormal blood level of iron Fatigue, unspecified type IRON Routine 07/23/2025 11:55 AM EDT Morbid obesity with BMI of 50.0-59.9, adult Intestinal malabsorption, unspecified type Vitamin D deficiency Abnormal blood level of iron Fatigue, unspecified type FOLATE Routine 07/23/2025 11:55 AM EDT Morbid obesity with BMI of 50.0-59.9, adult Intestinal malabsorption, unspecified type Vitamin D deficiency Abnormal blood level of iron Fatigue, unspecified type FERRITIN Routine 07/23/2025 11:55 AM EDT Morbid obesity with BMI of 50.0-59.9, adult Intestinal malabsorption, unspecified type Vitamin D deficiency Abnormal blood level of iron Fatigue, unspecified type COMPREHENSIVE METABOLIC PANEL Routine 07/23/2025 11:55 AM EDT Morbid obesity with BMI of 50.0-59.9, adult Intestinal malabsorption, unspecified type Vitamin D deficiency Abnormal blood level of iron Fatigue, unspecified type documented in this encounter Results * Zinc (07/23/2025 11:55 AM EDT) Zinc 77 44 - 115 ug/dL [facility] Comment:Detection Limit = 5 Blood 07/23/2025 11:5 5 AM EDT 07/23/2025 Narrative [facility] (AMBULATORY) - 07/31/2025 4:08 AM EDT Test(s) 870320-Pfil, Plasma or Serum was developed and its performance characteristics determined by [facility]. It has not been cleared or approved by the Food and Drug Administration. Performed at: 02 - [address] [id number] Dub Room Engineer: Maria Victoria Reed MD, Phone: [phone] Patient Fasting: N us Kathryn Mendez APRN LAB BLOOD ORDERABLES Final Res ult [facility] (AMBULATORY) [address] [place] [address], [facility] [address] [place] [address], * Vitamin K1 (07/23/2025 11:55 AM EDT) Vitamin K 0.92 0.10 - 2.20 ng/mL [facility] Blood 07/23/2025 11:5 5 AM EDT 07/23/2025 [facility] (AMBULATORY) - 07/31/2025 4:08 AM EDT Test(s) 945615-Oulufju K1 was developed and its performance characteristics determined by [facility]. It has not been cleared or approved by the Food and Drug Administration. Performed at: 02 - [facility] [id number] Dub Room Engineer: Maria Victoria Reed MD, Phone: [phone] Patient Fasting: N Kathryn Mendez APRN LAB BLOOD ORDERABLES Final Res ult Performing Organization Address [facility] Co de Phone Number [facility] (AMBULATORY) [address] [place] [address], [facility] [address] [place] [address], * Vitamin E (07/23/2025 11:55 AM EDT) [facility] Vitamin E (Alpha Tocopherol) 12.5 7.0 - 25.1 mg/L [facility] Vitamin E (Gamma Tocopherol) 1.1 0.5 - 5.5 mg/L [facility] Comment: Reference intervals for alpha and gamma-tocopherol determined from National Health and Nutrition Examination Survey, 2417-6674. Individuals with alpha-tocopherol levels less than 5.0 mg/L are considered vitamin E deficient. Blood 07/23/2025 11:5 5 AM EDT 07/23/2025 [facility] (AMBULATORY) - 07/31/2025 4:08 AM EDT Test(s) 005374-Nuppmjl E(Alpha Tocopherol); 886011- Vitamin E(Gamma Tocopherol) was developed and its performance characteristics determined by [facility]. It has not been cleared or approved by the Food and Drug Administration. Performed at: - [address] [id number] Dub Room Engineer: Maria Victoria Reed MD, Phone: [phone] Patient Fasting: N us Kathryn Mendez APRN LAB BLOOD ORDERABLES Final Res ult Performing Organization Address City/[facility]/ZIP Co de Phone Number [facility] ([facility]) [address] [place] [address], [facility] [address] [place] [address], * (ABNORMAL) Vitamin D,25-Hydroxy (07/23/2025 11:55 AM EDT) 25 Hydroxy, Vitamin D 24.0(L) 30.0 - 100.0 ng/mL [facility] Comment: Vitamin D deficiency has been defined by the [place] of Medicine and an Endocrine Society practice guideline as a level of serum 25-OH vitamin D less than 20 ng/mL (1,2). The Endocrine Society went on to further define vitamin D insufficiency as a level between 21 and 29 ng/mL (2). 1. IOM ([place] of Medicine). 2010. Dietary reference intakes for calcium and D. [place]: The National Academies Press. 2. Feli MF, Hollie BRADFORD, Xavier LEONE, et al. Evaluation, treatment, and prevention of vitamin D deficiency: an Endocrine Society clinical practice guideline. JCEM. 2010; 96(7):1911-30. Blood 07/23/2025 11:5 5 AM EDT 07/23/2025 Narrative [facility] (AMBULATORY) - 07/31/2025 4:08 AM EDT Performed at: 01 - [facility] [id number] Dub Room Engineer: John Warren PhD, Phone: [phone] Patient Fasting: N Kathryn Mendez APRN LAB BLOOD ORDERABLES Final Res ult [facility] (AMBULATORY) [address] [place] [address], [facility] [address] [place] [address], * Vitamin B1, Whole Blood (07/23/2025 11:55 AM EDT) Vitamin B1, Whole Blood 122.7 66.5 - 200.0 nmol/L [facility] Blood 07/23/2025 11:5 5 AM EDT 07/23/2025 Narrative [facility] (AMBULATORY) - 07/31/2025 4:08 AM EDT Test(s) 114564-Wtz. B1, Whole Blood was developed and its performance characteristics determined by [facility]. It has not been cleared or approved by the Food and Drug Administration. Performed at: 02 - [address] [id number] Dub Room Engineer: Maria Victoria Reed MD, Phone: [phone] Patient Fasting: N Kathryn Mendez APRN LAB BLOOD ORDERABLES Final Res ult Performing Organization Address [facility] Co de Phone Number [facility] [address] [place] [address], [place] [phone] [facility] [address] [place] [address], [place] [phone] * Vitamin A (07/23/2025 11:55 AM EDT) [facility] Vitamin A 42.9 20.1 - 62.0 ug/dL [facility] Comment: Reference intervals for vitamin A determined from [facility] internal studies. Individuals with vitamin A less than 20 ug/dL are considered vitamin A deficient and those with serum concentrations less than 10 ug/dL are considered severely deficient. This test was developed and its performance characteristics determined by [facility]. It has not been cleared or approved by the Food and Drug Administration. Blood 07/23/2025 11:5 5 AM EDT 07/23/2025 Narrative [facility] (AMBULATORY) - 07/31/2025 4:08 AM EDT Performed at: [address] [id number] Dub Room Engineer: Maria Victoria Reed MD, Phone: [phone] Patient Fasting: N Kathryn Mendez BOOMBOAT OPERATOR LAB BLOOD ORDERABLES Final Res ult Performing Organization Address [facility] de Phone Number [facility] [address] [id number], [facility] [address] [place] [address], [place] [phone] * (ABNORMAL) PTH, Intact (07/23/2025 11:55 AM EDT) PTH, Intact 151(H) 15 - 65 pg/mL [facility] Blood 07/23/2025 11:5 5 AM EDT 07/23/2025 [facility] (AMBULATORY) - 07/31/2025 4:08 AM EDT Performed at: - [address] [id number] Dub Room Engineer: John Warren PhD, Phone: [phone] Patient Fasting: N us Kathryn Mendez APRN LAB BLOOD ORDERABLES Final Res ult [facility] [address] [place] [address], [place] [phone] [facility] [address] [place] [address], [place] [phone] * Protime-INR (07/23/2025 11:55 AM EDT) Pathologist [facility] INR 0.9 0.9 - 1.2 [facility] Comment: Reference interval is for non-anticoagulated patients. Suggested INR therapeutic range for Vitamin K antagonist therapy: Standard Dose (moderate intensity therapeutic range): 2.0 - 3.0 Higher intensity therapeutic range 2.5 - 3.5 Protime 10.1 9.1 - 12.0 sec [facility] Blood 07/23/2025 11:5 5 AM EDT 07/23/2025 [facility] (AMBUL[facility]) - 07/31/2025 4:08 AM EDT Performed at: - [address] [id number] Dub Room Engineer: John Warren PhD, Phone: [phone] Patient Fasting: N Kathryn Mendez BOOMBOAT OPERATOR LAB BLOOD ORDERABLES Final Res ult [facility] ([facility]) [address] [place] [address], [place] [phone] [facility] [address] [place] [address], [place] [phone] * Prealbumin (07/23/2025 11:55 AM EDT) Prealbumin 21 12 - 34 mg/dL [facility] Blood 07/23/2025 11:5 5 AM EDT 07/23/2025 Narrative [facility] ([facility]) - 07/31/2025 4:08 AM EDT Performed at: - [address] [id number] Dub Room Engineer: John Warren PhD, Phone: [phone] Patient Fasting: N Kathryn Mendez BOOMBOAT OPERATOR LAB BLOOD ORDERABLES Final Res ult Performing Organization Address [facility]/ZIP Co de Phone Number [facility] ([facility]) [address] [place] [address], [place] [phone] [facility] [address] [place] [address], [place] [phone] * Phosphorus (07/23/2025 11:55 AM EDT) Phosphorus 3.2 3.0 - 4.3 mg/dL [facility] Blood 07/23/2025 11:5 5 AM EDT 07/23/2025 Narrative [facility] ([facility]) - 07/31/2025 4:08 AM EDT Performed at: - [address] [id number] Dub Room Engineer: John Warren PhD, Phone: [phone] Patient Fasting: N us Kathryn Mendez BOOMBOAT OPERATOR LAB BLOOD ORDERABLES Final Res ult [facility] ([facility]) [address] [place] [address], [place] [phone] [facility] [address] [place] [address], [place] [phone] * Methylmalonic Acid, Serum (07/23/2025 11:55 AM EDT) Methylmalonic Acid 147 0 - 378 nmol/L [facility] Blood 07/23/2025 11:5 5 AM EDT 07/23/2025 [facility] (AMB[facility]) - 07/31/2025 4:08 AM EDT Test(s) 014569-Exsotqftwpgbt Acid, Serum was developed and its performance characteristics determined by [facility]. It has not been cleared or approved by the Food and Drug Administration. Performed at: - [address] [id number] Dub Room Engineer: Maria Victoria Reed MD, Phone: [phone] Patient Fasting: N Kathryn Mendez APRN LAB BLOOD ORDERABLES Final Res ult Performing Organization Address City/[facility]/ZIP Co de Phone Number [facility] (AMBULATORY) [address] [place] [address], [facility] [address] [place] [address], * Magnesium (07/23/2025 11:55 AM EDT) Magnesium 2.0 1.6 - 2.3 mg/dL [facility] Blood 07/23/2025 11:5 5 AM EDT 07/23/2025 [facility] ([facility]) - 07/31/2025 4:08 AM EDT Performed at: - [facility] [address] [place], [place] [id number] Dub Room Engineer: John Warren PhD, Phone: [phone] Patient Fasting: N us Kathryn Mendez APRN LAB BLOOD ORDERABLES Final Res ult Performing Organization Address City/[facility]/ZIP Co de Phone Number [facility] [address] [place] [address], [place] [phone] [facility] [address] [place] [address], [place] [phone] * Iron (07/23/2025 11:55 AM EDT) Pathologist [facility] Iron 59 27 - 159 ug/dL [facility] Blood 07/23/2025 11:5 5 AM EDT 07/23/2025 Narrative [facility] ([facility]) - 07/31/2025 4:08 AM EDT Performed at: - [facility] [address] [place], [place] [id number] Dub Room Engineer: John Warren PhD, Phone: [phone] Patient Fasting: N Kathryn Mendez APRN LAB BLOOD ORDERABLES Final Res ult Performing Organization Address [facility] Co de Phone Number [facility] ([facility]) [address] [place] [address], [place] [phone] [facility] [address] [place] [address], [place] [phone] * Folate (07/23/2025 11:55 AM EDT) [facility] Folate 19.5 >3.0 ng/mL [facility] Comment: A serum folate concentration of less than 3.1 ng/mL is considered to represent clinical deficiency. Blood 07/23/2025 11:5 5 AM EDT 07/23/2025 Narrative [facility] ([facility]) - 07/31/2025 4:08 AM EDT Performed at: - [facility] [address] [place], [place] [id number] Dub Room Engineer: John Warren PhD, Phone: [phone] Patient Fasting: N Kathryn Mendez APRN LAB BLOOD ORDERABLES Final Res ult Performing Organization Address [facility] Co de Phone Number [facility] ([facility]) [address] [place] [address], [place] [phone] [facility] [address] [place] [address], * (ABNORMAL) Ferritin (07/23/2025 11:55 AM EDT) Ferritin 10(L) 15 - 150 ng/mL [facility] Blood 07/23/2025 11:5 5 AM EDT 07/23/2025 Narrative [facility] (AMB[facility]) - 07/31/2025 4:08 AM EDT Performed at: - [facility] [address] [place] [id number] Dub Room Engineer: John Warren PhD, Phone: [phone] Patient Fasting: N Kathryn Mendez APRN LAB BLOOD ORDERABLES Final Res ult Performing Organization Address [facility]/ZIP Co de Phone Number [facility] ([facility]) [address] [place] [address], [facility] [address] [place] [address], * Copper, Serum (07/23/2025 11:55 AM EDT) Copper 151 80 - 158 ug/dL [facility] Comment:Detection Limit = 5 Blood 07/23/2025 11:5 5 AM EDT 07/23/2025 [facility]ative [facility] - 07/31/2025 4:08 AM EDT Test(s) 638032-Wsxwyn, Serum or Plasma was developed and its performance characteristics determined by [facility]. It has not been cleared or approved by the Food and Drug Administration. Performed at: - [address] [id number] Dub Room Engineer: Maria Victoria Reed MD, Phone: [phone] Patient Fasting: N Kathryn Mendez APRN LAB BLOOD ORDERABLES Final Res ult Performing Organization Address [facility]/ZIP Co de Phone Number [facility] (AMBULATORY) [address] [place] [address], [facility] [address] [place] [address], * (ABNORMAL) Comprehensive Metabolic Panel (07/23/2025 11:55 AM EDT) [facility] Signature Glucose 81 70 - 99 mg/dL [facility] BUN 11 6 - 24 mg/dL [facility] Creatinine 0.63 0.57 - 1.00 mg/dL [facility] EGFR Result 109 >59 mL/min/1.7 3 [facility] BUN/Creatinine Ratio 17 9 - 23 [facility] Sodium 140 134 - 144 mmol/L [facility] Potassium 4.8 3.5 - 5.2 mmol/L [facility] Chloride 105 96 - 106 mmol/L [facility] Total CO2 20 20 - 29 mmol/L [facility] Calcium 11.3(H) 8.7 - 10.2 mg/dL [facility] Total Protein 6.8 6.0 - 8.5 g/dL [facility] Albumin 4.2 3.9 - 4.9 g/dL [facility] Globulin 2.6 1.5 - 4.5 g/dL [facility] Total Bilirubin 0.7 0.0 - 1.2 mg/dL [facility] Alkaline Phosphatase 226(H) 41 - 116 IU/L [facility] Comment:Please note refere nce interval change AST (SGOT) 23 0 - 40 IU/L [facility] ALT (SGPT) 29 0 - 32 IU/L [facility] Blood 07/23/2025 11:5 5 AM EDT 07/23/2025 Narrative [facility] ([facility]) - 07/31/2025 4:08 AM EDT Performed at: 01 - [facility] [id number] Dub Room Engineer: John Warren PhD, Phone: [phone] Patient Fasting: N us Kathryn Mendez APRN LAB BLOOD ORDERABLES Final Res ult [facility] ([facility]) [address] [place] [address], [facility] [address] [place] [address], * (ABNORMAL) CBC & Differential (07/23/2025 11:55 AM EDT) WBC 6.8 3.4 - 10.8 x10E3/uL [facility] RBC 5.02 3.77 - 5.28 x10E6/uL [facility] Hemoglobin 13.5 11.1 - 15.9 g/dL [facility] Hematocrit 44.2 34.0 - 46.6 % [facility] MCV 88 79 - 97 fL [facility] MCH 26.9 26.6 - 33.0 pg [facility] MCHC 30.5(L) 31.5 - 35.7 g/dL [facility] RDW 15.6(H) 11.7 - 15.4 % [facility] Platelets 278 150 - 450 x10E3/uL [facility] Neutrophil Rel % 64 Not Estab. % [facility] Lymphocyte Rel % 30 Not Estab. % [facility] Monocyte Rel % 5 Not Estab. % [facility] Eosinophil Rel % 1 Not Estab. % [facility] Basophil Rel % 0 Not Estab. % [facility] Neutrophils Absolute 4.3 1.4 - 7.0 x10E3/uL [facility] Lymphocytes Absolute 2.0 0.7 - 3.1 x10E3/uL [facility] Monocytes Absolute 0.3 0.1 - 0.9 x10E3/uL [facility] Eosinophils Absolute 0.1 0.0 - 0.4 x10E3/uL [facility] Basophils Absolute 0.0 0.0 - 0.2 x10E3/uL [facility] Immature Granulocyte Rel % 0 Not Estab. % [facility] Immature Grans Absolute 0.0 0.0 - 0.1 x10E3/uL [facility] Blood 07/23/2025 11:5 5 AM EDT 07/23/2025 Narrative [facility] ([facility]UL[facility]ORY) - 07/31/2025 4:08 AM EDT Performed at: - [address] [id number] Dub Room Engineer: John Warren PhD, Phone: [phone] Patient Fasting: N us Kathryn Mendez BOOMBOAT OPERATOR LAB BLOOD ORDERABLES Final Res ult [facility] ([facility]BULATORY) [address] [place] [address], [place] [phone] [facility] [address] [place] [address], [place] [phone] documented in this encounter Visit Diagnoses Diagnosis Morbid obesity with BMI of 50.0-59.9, adult- Primary Intestinal malabsorption, unspecified type Vitamin D deficiency Abnormal blood level of iron Other abnormal blood chemistry Fatigue, unspecified type documented in this encounter Care Teams Stain Dipper Relationship Specialty Start Date End Date Rito Bobby DO [address] [place] [id number] PCP - General Internal Medicine 12/17/24 documented as of this encounter
--- OUTSIDE RECORDS SUMMARY | 2025-08-09 07:00 | XMS_ITS | Encounter Summary ---
Author Organization [facility] Address [address] [place] [address] Care Team Providers Care Animal Trainer Name Role Phone Phuong Perez MD Primary Care Provider [phone] Reason for Referral * Imaging (Routine) - Closed Specialty Diagnoses / Procedures Referred By Contac t Referred To Contact Radiology Diagnoses Primary hyperparathyroidism (CMS/HCC) Hypercalcemia Procedures CT Soft Tissue Neck w and wo IV Contrast CT Soft Tissue Neck w IV Contrast Roni Garcia MD [address] [place] [address] Phone: tel: fax: Referral ID Status Reason Start Date Expiration Date Visits Re quested Visits Authorized [id number] Closed 07/27/2025 01/26/2027 1 1 Reason for Visit * Imaging (Routine) - Closed Specialty Diagnoses / Procedures Referred By Radha ramon Referred To Contact Radiology Diagnoses Primary hyperparathyroidism (CMS/HCC) Hypercalcemia Procedures CT Soft Tissue Neck w and wo IV Contrast CT Soft Tissue Neck w IV Contrast Roni Garcia MD [address] [place] [address] Phone: tel: fax: Referral ID Status Reason Start Date Expiration Date Visits Re quested Visits Authorized [id number] Closed 07/27/2025 01/26/2027 1 1 Encounter Details Date Type Department Care Team (Latest Contact Info) Description 08/09/2025 7:00 AM EDT - 08/09/2025 11:59 PM EDT Hospital Encounter [facility] [address] [place] [address] Primary hyperparathyroidism (CMS/HCC); Hypercalcemia Discharge Disposition: Home [...] Medical Office Building Surgical Specialties [address], [address] [place] [address] Garo Fonseca MD [address] [address] documented as of this encounter [...] error, please notify the sender immediately at [phone] and permanently delete the original report and destroy any copies or printouts. Narrative 08/10/2025 12:45 PM EDT [facility] - Phone Outpatient NAME: JewelsRadha buchanan Sarah DATE OF EXAM: 08/09/2025 Patient No: [id number] Physician: Mayte Date of : 1975 Past [...] Sarah DATE OF EXAM: 08/09/2025 Patient No: [id number] Physician: Mayte Date of : 1975 Past [...] in error, pleasenotify the sender immediately at [phone] and permanently delete theoriginal report and destroy any copies or printouts. Roni Garcia MD [facility] [place] Final Resul t documented in [...] documented as of this encounter Care Teams Animal Trainer Relationship Specialty Start Date End Date Phuong Perez MD PCP - General 11/13/23 documented as of this encounter
--- OUTSIDE RECORDS SUMMARY | 2025-08-27 07:45 | XMS_ITS | Clinical Summary ---
Author Organization Healthcare Address [address] [place] [address] Care Team Providers Care Tailor Helper Name Role Phone Phuong Perez MD Primary Care Provider [phone] Allergies Active Allergy Reactions Criticality Noted Date [...] - 08/09/2025 11:59 PM EDT Hospital Encounter [facility] [address] [facility] [place] [phone] Primary hyperparathyroidism (CMS/HCC); Hypercalcemia Discharge Disposition: Home [...] Medical Office Building Surgical Specialties [address] [facility], [address] [place] [address] Garo Fonseca MD [address] [phone] Health Maintenance Due Date Last Done Comments [...] 2021 Sigmoidoscopy 2021 [facility]-Colorectal Cancer Screening 2021 [id number] Vaccine ( season) 2025 09/08/2021, 01/19/2021, 12/22/2020 [...] error, please notify the sender immediately at [phone] and permanently delete the original report and destroy any copies or printouts. Narrative 08/10/2025 12:45 PM EDT [employer] - Phone Outpatient NAME: Radha Donis Sarah DATE OF EXAM: 08/09/2025 Patient No: [id number] Physician: Mayte Date of : 1975 Past [...] Donis DATE OF EXAM: 08/09/2025 Patient No: [id number] Physician: Mayte Date of : 1975 Past [...] in error, pleasenotify the sender immediately at [phone] and permanently delete theoriginal report and destroy any copies or printouts. Roni Garcia MD IMG CT PROCEDURES Final Resul t from Last 3 Months Insurance ANTH Care Teams Tailor Helper Relationship Specialty Start Date End Date Phuong Perez MD PCP - General 11/13/23
--- OUTSIDE RECORDS SUMMARY | 2025-08-27 07:45 | XMS_ITS | Clinical Summary ---
Author Organization [facility] Address [address] [place] [address] Care Team Providers Care Seed Cleaning Manager Name Role Phone Rito Bobby Gama Primary Care Provider + Allergies Active Allergy Reactions Criticality Noted Date Comments Lisinopril Anaphylaxis High 10/22/2023 Medications * This document contains information received from the source organization and may not represent a complete record from that organization. polyethylene glycol (MiraLax) 17 g packet Take 17 g by mouth Daily As Needed. Active Semaglutide-Bowen ght Management (Wegovy) 0.25 MG/0.5ML [...] 2 (Two) Times a Week. 5 Active cholecalciferol (VITAMIN D3) 1.25 MG (13934 UT) capsule Take 1 capsule by mouth Every 7 (Seven) Days. 12 capsule Active Active Problems Problem Noted Date Diagnosed Date Body mass index (BMI) of 60.0-69.9 in adult 12/2023 Personal history of gastric bypass 09/29/2024 Morbid obesity with body mas s index (BMI) of 60.0 to 69.9 in adult 09/29/2024 Weight gain following gastric bypass surgery 02/2024 Dyspepsia 05/28/2024 Dysfunctional uterine bleeding 07/20/2016 Encounters Date Type Department Care Team Description 08/03/2025 Results Follow-Up [facility] [address] [place] [address] Christine Connell APRN 07/23/2025 11:30 AM EDT Office Visit [facility] [address] [place] [address] Christine Connell, WASH RACK OPERATOR Morbid obesity with BMI of 50.0-59.9, adult [...] Ray Harp Heart attack Maternal Grandfather Garo Brogli Hypertension Maternal Grandfather Garo Brogli Stomach cancer Maternal Grandfather Garo Brogli Stroke Maternal Grandfather Garo Brogli Hypertension Maternal Grandmother Shannan [place] Lung cancer Maternal Grandmother Hialeah [place] Diabetes type II Mother Anita True Heart attack Mother Anita True Heart disease Mother Anita True Hypertension Mother Anita True Breast cancer Paternal Grandmother Haylie Rodrick Becr aft Diabetes Paternal Grandmother Haylie Vaner Becra ft Heart attack Paternal Grandmother Haylie Mensah Becra ft Heart disease Paternal Grandmother Haylie Mensah Becr aft Hypertension Paternal Grandmother Haylie Vaner Becra ft Obesity Paternal Grandmother Haylie Vegascker Becra ft Obesity Sister Relation Name Status Comments Brother Garo Henderson Father Chris Henderson Maternal Grandfather Garo Andrea Maternal Grandmother Shannan Fregoso Mother Anita Iqbal Paternal Grandfather Paternal Grandmother Haylie Appiahranicole Sister Social History Tobacco Use Types Packs/Day [...] or training? Not on file Preferred Language Guatemalan 10/15/2024 Comments No Sex and Gender Information [...] Description 10/25/2025 8:00 AM EST Office Visit [facility] [address] [place] [address] Christine Connell APRN [address] [place] [address] Health Maintenance Due Date Last Done [...] this topic Medical Devices Implanted Type Area Aircraft Painter Device Identifier Shelf Expiration Date Model / Serial / Lot Reload Stplr [place]wood Flex Gst Stnd 60 Wht - [id number] Implanted:Qty : 4 on 10/22/2024 by Ezequiel Beverly MD at [facility] Implant N/A: Abdomen ETHICON ENDO SURGERY DIV OF J AND J 12/25/2026 [id number] / / [id number] Dev Contrl Tiss Stratafix Spiral Pds Pls 3/0 0 15cm Silvana - [id number] Implanted:Qty : 1 on 10/22/2024 by Ezequiel Beverly MD at [facility] Implant N/A: Abdomen ETHICON DIV OF J AND J 02/24/2026 [id number] / / [id number] Dev Contrl Tiss Stratafix Spiral Pds Pls 3/0 0 15cm Silvana - [id number] Implanted:Qty : 1 on 10/22/2024 by Ezequiel Beverly MD at [facility] Implant N/A: Abdomen ETHICON DIV OF J AND J 02/24/2026 [id number] / / [id number] Dev Cls Wnd Vloc/Pbt Margret Nonabs 1/2cir Sz2/0 26mm 15cm Krishna - [id number] Implanted:Qty : 3 on 10/22/2024 by Ezequiel Beverly MD at [facility] Implant N/A: Abdomen COVIDIEN 03/27/2027 [id number] / / [id number] Stplr Tiss [id number] Lng [id number] Strl 1p/U - [id number] Implanted:Qty : 1 on 10/22/2024 by Ezequiel Beverly MD at [facility] Implant N/A: Abdomen ETHICON ENDO SURGERY [...] 11:5 5 AM EDT 07/23/2025 Narrative [facility] (AMBULATORY) - 07/31/2025 4:08 AM EDT Test(s) 276760-Xohzrgezbmats Acid, Serum was developed and its performance characteristics determined by [facility]. It has not been cleared or approved by the Food and Drug Administration. Performed at: 02 - [address] [id number] Instructor Robotics: Maria Victoria Reed MD, Phone: [phone] Patient Fasting: N Christine Connell APRN LAB BLOOD ORDERABLES Final Res ult [facility] (AMBULATORY) [address] [place] [address], [place] [phone] [facility] [address] [place] [address], [place] [phone] * Copper, Serum (07/23/2025 11:55 AM EDT) Copper 151 80 - 158 ug/dL [facility] Comment:Detection Limit = 5 Blood 07/23/2025 11:5 5 AM EDT 07/23/2025 [facility] - 07/31/2025 4:08 AM EDT Test(s) 776996-Bgunyn, Serum or Plasma was developed and its performance characteristics determined by [facility]. It has not been cleared or approved by the Food and Drug Administration. Performed at: [address] [id number] Instructor Robotics: Maria Victoria Reed MD, Phone: [phone] Patient Fasting: N Christine Connell WASH RACK OPERATOR LAB BLOOD ORDERABLES Final Res ult Performing Organization Address [facility] de Phone Number [facility] ([facility]) [address] [place] [address], [facility] [address] [place] [address], [place] [phone] * Vitamin B1, Whole Blood (07/23/2025 11:55 AM EDT) [facility] Vitamin B1, Whole Blood 122.7 66.5 - 200.0 nmol/L [facility] Blood 07/23/2025 11:5 5 AM EDT 07/23/2025 [facility] - 07/31/2025 4:08 AM EDT Test(s) 535436-Tex. B1, Whole Blood was developed and its performance characteristics determined by [employer]. It has not been cleared or approved by the Food and Drug Administration. Performed at: [address] [id number] Instructor Robotics: Maria Victoria Reed MD, Phone: [phone] Patient Fasting: N Christine Connell WASH RACK OPERATOR LAB BLOOD ORDERABLES Final Res ult Performing Organization Address [facility] Co de Phone Number [facility] ([facility]) [address] [place] [address], [place] [phone] [facility] [address] [place] [address], * Zinc (07/23/2025 11:55 AM EDT) [facility] Zinc 77 44 - 115 ug/dL [facility] Comment:Detection Limit = 5 Blood 07/23/2025 11:5 5 AM EDT 07/23/2025 [facility] - 07/31/2025 4:08 AM EDT Test(s) 249208-Lbxo, Plasma or Serum was developed and its performance characteristics determined by [facility]. It has not been cleared or approved by the Food and Drug Administration. Performed at: - [address] [id number] Instructor Robotics: Maria Victoria Reed MD, Phone: [phone] Patient Fasting: N Christine Connell WASH RACK OPERATOR LAB BLOOD ORDERABLES Final Res ult Performing Organization Address [facility] de Phone Number [facility] ([facility]) [address] [place] [address], [facility] [address] [place] [address], [place] [phone] * Vitamin A (07/23/2025 11:55 AM EDT) Pathologist [facility] Vitamin A 42.9 20.1 - 62.0 ug/dL [facility] Comment: Reference intervals for vitamin A determined from [facility] internal studies. Individuals with vitamin A less than 20 ug/dL are considered vitamin A deficient and those with serum concentrations less than 10 ug/dL are considered severely deficient. This test was developed and its performance characteristics determined by [facility]. It has not been cleared or approved by the Food and Drug Administration. Blood 07/23/2025 11:5 5 AM EDT 07/23/2025 [facility] - 07/31/2025 4:08 AM EDT Performed at: - [address] [id number] Instructor Robotics: Maria Victoria Reed MD, Phone: [phone] Patient Fasting: N Christine Connell WASH RACK OPERATOR LAB BLOOD ORDERABLES Final Res ult Performing Organization Address [facility] Co de Phone Number [facility] [address] [place] [address], [facility] [address] [place] [address], * Vitamin K1 (07/23/2025 11:55 AM EDT) Vitamin K 0.92 0.10 - 2.20 ng/mL [facility] Blood 07/23/2025 11:5 5 AM EDT 07/23/2025 Narrative [facility] - 07/31/2025 4:08 AM EDT Test(s) 439571-Fvajygk K1 was developed and its performance characteristics determined by [facility]. It has not been cleared or approved by the Food and Drug Administration. Performed at: 02 - [address] [id number] Instructor Robotics: Maria Victoria Reed MD, Phone: [phone] Patient Fasting: N Christine Connell APRN LAB BLOOD ORDERABLES Final Res ult [facility] [address] [place] [address], [facility] [address] [place] [address], * (ABNORMAL) Vitamin D,25-Hydroxy (07/23/2025 11:55 AM EDT) 25 Hydroxy, Vitamin D 24.0(L) 30.0 - 100.0 ng/mL [facility] Comment: Vitamin D deficiency has been defined by the Early Branch of Medicine and an Endocrine Society practice guideline as a level of serum 25-OH vitamin D less than 20 ng/mL (1,2). The Endocrine Society went on to further define vitamin D insufficiency as a level between 21 and 29 ng/mL (2). 1. IOM (Early Branch of Medicine). 2010. Dietary reference intakes for calcium and D. [place]: The National Academies Press. 2. Feli MF, Hollie BRADFORD, Xavier LEONE, et al. Evaluation, treatment, and prevention of vitamin D deficiency: an Endocrine Society clinical practice guideline. JCEM. 2010; 96(3):1911-30. Blood 07/23/2025 11:5 5 AM EDT 07/23/2025 Narrative [facility] ([facility]) - 07/31/2025 4:08 AM EDT Performed at: 01 - [facility] [address] [place], [place] [id number] Instructor Robotics: John Warren PhD, Phone: [phone] Patient Fasting: N Christine Connell WASH RACK OPERATOR LAB BLOOD ORDERABLES Final Res ult Performing Organization Address City/[facility]/ZIP Co de Phone Number [facility] (AMBULATORY) [address] [place] [address], [place] [phone] [facility] [address] [place] [address], [place] [phone] * Protime-INR (07/23/2025 11:55 AM EDT) [facility] INR 0.9 0.9 - 1.2 [facility] [...] 4:08 AM EDT Performed at: 01 - [facility] [address] [place], [place] [id number] Instructor Robotics: John Warren PhD, Phone: [phone] Patient Fasting: N Christine Connell WASH RACK OPERATOR LAB BLOOD ORDERABLES Final Res ult Performing Organization Address City/[facility]/ZIP Co de Phone Number [facility] (AMBULATORY) [address] [place] [address], [place] [phone] [facility] [address] [place] [address], * (ABNORMAL) CBC & Differential (07/23/2025 11:55 [...] 07/31/2025 4:08 AM EDT Performed at: - [place] [id number] [facility], [place], [place] [id number] Instructor Robotics: John Warren PhD, Phone: [phone] Patient Fasting: N Christine Connell WASH RACK OPERATOR LAB BLOOD ORDERABLES Final Res ult [facility] [address] [place] [address], [place] [phone] [facility] [address] [place] [address], * Vitamin E (07/23/2025 11:55 AM EDT) Vitamin E (Alpha Tocopherol) 12.5 7.0 - 25.1 mg/L [facility] Vitamin E (Gamma Tocopherol) 1.1 0.5 - 5.5 mg/L [facility] Comment: Reference intervals for alpha and gamma-tocopherol determined from National Health and Nutrition Examination Survey, 2464-7857. Individuals with alpha-tocopherol levels less than 5.0 mg/L are considered vitamin E deficient. Blood 07/23/2025 11:5 5 AM EDT 07/23/2025 Narrative [facility] (AMBULATORY) - 07/31/2025 4:08 AM EDT Test(s) 262540-Vactyzk E(Alpha Tocopherol); 012173- Vitamin E(Gamma Tocopherol) was developed and its performance characteristics determined by [facility]. It has not been cleared or approved by the Food and Drug Administration. Performed at: 02 - [address] [id number] Instructor Robotics: Maria Victoria Reed MD, Phone: [phone] Patient Fasting: N Christine Connell WASH RACK OPERATOR LAB BLOOD ORDERABLES Final Res ult [facility] [address] [place] [address], [place] [phone] [facility] [address] [place] [address], * Prealbumin (07/23/2025 11:55 AM EDT) Prealbumin 21 12 - 34 mg/dL [facility] Blood 07/23/2025 11:5 5 AM EDT 07/23/2025 Narrative [facility] ([facility]) - 07/31/2025 4:08 AM EDT Performed at: - [address] [id number] Instructor Robotics: John Warren PhD, Phone: [phone] Patient Fasting: N Christine Connell WASH RACK OPERATOR LAB BLOOD ORDERABLES Final Res ult Performing Organization Address [facility] Co de Phone Number [facility] (AMBULATORY) [address] [place] [address], [facility] [address] [place] [address], * Phosphorus (07/23/2025 11:55 AM EDT) Phosphorus 3.2 3.0 - 4.3 mg/dL [facility] Blood 07/23/2025 11:5 5 AM EDT 07/23/2025 Narrative [facility] (AMBULATORY) - 07/31/2025 4:08 AM EDT Performed at: [address] [place] [id number] Instructor Robotics: John Warren PhD, Phone: [phone] Patient Fasting: N Christine Connell APRN LAB BLOOD ORDERABLES Final Res ult Performing Organization Address [facility] de Phone Number [facility] (AMBULATORY) [address] [place] [address], [place] [phone] [facility] [address] [place] [address], [place] [phone] * (ABNORMAL) PTH, Intact (07/23/2025 11:55 AM EDT) PTH, Intact 151(H) 15 - 65 pg/mL [facility] Blood 07/23/2025 11:5 5 AM EDT 07/23/2025 Narrative [facility] ([facility]) - 07/31/2025 4:08 AM EDT Performed at: - [facility] [address] [place], [place] [id number] Instructor Robotics: John Warren PhD, Phone: [phone] Patient Fasting: N Christine Connell APRN LAB BLOOD ORDERABLES Final Res ult Performing Organization Address [facility]/ZIP Co de Phone Number [facility] (AMBULATORY) [address] [place] [address], [facility] [address] [place] [address], * Magnesium (07/23/2025 11:55 AM EDT) Magnesium 2.0 1.6 - 2.3 mg/dL [facility] Blood 07/23/2025 11:5 5 AM EDT 07/23/2025 Narrative [facility] (AMBULATORY) - 07/31/2025 4:08 AM EDT Performed at: - [address] [id number] Instructor Robotics: John Warren PhD, Phone: [phone] Patient Fasting: N us Christine Connell APRN LAB BLOOD ORDERABLES Final Res ult Performing Organization Address [facility]/ZIP Co de Phone Number [facility] (AMBULATORY) [address] [place] [address], [facility] [address] [place] [address], * Iron (07/23/2025 11:55 AM EDT) Iron 59 27 - 159 ug/dL [facility] Blood 07/23/2025 11:5 5 AM EDT 07/23/2025 Narrative [facility] (AMBULATORY) - 07/31/2025 4:08 AM EDT Performed at: - [facility] [address] [place], [place] [id number] Instructor Robotics: John Warren PhD, Phone: [phone] Patient Fasting: N Christine Connell APRN LAB BLOOD ORDERABLES Final Res ult Performing Organization Address [facility] Co de Phone Number [facility] (AMBULATORY) [address] [place] [address], [place] [phone] [facility] [address] [place] [address], [place] [phone] * Folate (07/23/2025 11:55 AM EDT) Pathologist [facility] Folate 19.5 >3.0 ng/mL [facility] Comment: A serum folate concentration of less than 3.1 ng/mL is considered to represent clinical deficiency. Blood 07/23/2025 11:5 5 AM EDT 07/23/2025 Narrative [facility] (AMBULATORY) - 07/31/2025 4:08 AM EDT Performed at: - [address] [id number] Instructor Robotics: John Warren PhD, Phone: [phone] Patient Fasting: N Christine Connell APRN LAB BLOOD ORDERABLES Final Res ult Performing Organization Address [facility] Co de Phone Number [facility] (AMBULATORY) [address] [place] [address], [place] [phone] [facility] [address] [place] [address], [place] [phone] * (ABNORMAL) Ferritin (07/23/2025 11:55 AM EDT) Pathologist [facility] Ferritin 10(L) 15 - 150 ng/mL [facility] Blood 07/23/2025 11:5 5 AM EDT 07/23/2025 Narrative [facility] (AMBULATORY) - 07/31/2025 4:08 AM EDT Performed at: - [address] [id number] Instructor Robotics: John Warren PhD, Phone: [phone] Patient Fasting: N Christine Connell WASH RACK OPERATOR LAB BLOOD ORDERABLES Final Res ult [facility] ([facility]BULAT[facility]) [address] [place] [address], [facility] [address] [place] [address], * (ABNORMAL) Comprehensive Metabolic Panel (07/23/2025 11:55 AM EDT) [facility] Glucose 81 70 - 99 mg/dL [...] 4:08 AM EDT Performed at: 01 - [facility] [address] [facility], [place], [place] [id number] Instructor Robotics: John Warren PhD, Phone: [phone] Patient Fasting: N Christine Connell APRN LAB BLOOD ORDERABLES Final Res ult Performing Organization Address City/[facility]/ZIP Co de Phone Number [facility] (AMBULATORY) [address] [place] [address], [facility] [address] [place] [address], * (ABNORMAL) Lipid Panel (04/22/2024 10:43 AM EDT) [facility] Total Cholesterol 265(H) 100 - 199 mg/dL [facility] Triglycerides 205(H) 0 - 149 mg/dL [facility] HDL Cholesterol 61 >39 mg/dL [facility] VLDL Cholesterol Sonu 38 5 - 40 mg/dL [facility] LDL Chol Calc (NIH) 166(H) 0 - 99 mg/dL [facility] Blood 04/22/2024 10:4 3 AM EDT 04/22/2024 Narrative [facility] - 04/23/2024 4:12 PM EDT Performed at: - [facility] [id number] Instructor Robotics: John Warren PhD, Phone: [phone] Patient Fasting: N Imelda Jordan MD LAB BLOOD ORDERABLES Fin al Result Performing Organization Address [facility] Co de Phone Number [facility] ([facility]) [address] [place] [address], [facility] [address] [place] [address], * LIQUID-BASED PAP SMEAR WITH HPV GENOTYPING REGARDLESS OF INTERPRETATION (NETTA,COR,MAD) (10/22/2023 2:35 PM EST) [facility] Reference Lab Report [facility] [address] [place] [address] or [phone] Hima Higginbotham M.D., Carpet Or Rug Layer Helper PATIENT NAME LABORATORY NO. 65Patrice EAN SALVADOR [id number] AGE SEX SSN CLIENT REF # [id number] 48 [id number] F [id number] Yue OSBORNE REQUESTING [place] [address] REGINA RAMIREZ DATE COLLECTED DATE RECEIVED DATE REPORTED 10/22/2023 10/22/2023 10/31/2023 ThinPrep Pap with Cytyc Imaging DIAGNOSIS: Negative for intraepithelial lesion or malignancy Multiple factors can influence accuracy of Pap tests; therefore, screening at regular intervals is necessary for early cancer detection. Professional interpretation rendered by Hima Higginbotham M.D., F.C.A.P. at [facility] (Closed), [address] [place] [address]. RECOMMENDATION: Follow up as clinically appropriate SPECIMEN [...] 51, 52, 56, 58, 59, 66, 68 DRAWSTRING KNOTTER: ANALI BERRY (ASCP) REVIEWED, DIAGNOSED AND ELECTRONICALLY SIGNED BY: Hima Higginbotham M.D., F.C.A.P. CPT CODES: [id number], [id number], [id number] 10/31/2023 12:44 PM EST [facility] ThinPrep Vial Cervix uteri structure / Unknown Collection / Unknown 10/22/2023 2:35 PM EST 10/22/2023 2:35 PM EST us Regina Ramirez MD PATHOLOGY/CYTOLOGY ORDERABLES F inal Result [facility]
[address] [place] [address], [place] [phone] * SCANNED - MAMMO (08/16/2020) Anatomical Region [...] Of Support Discussed With: Patient Care Teams Seed Cleaning Manager Relationship Specialty Start Date End Date Rito Bobby DO [address] [place] [address] PCP - General Internal Medicine 12/17/24
--- OUTSIDE RECORDS SUMMARY | 2025-08-27 07:45 | XMS_ITS | Encounter Summary ---
Author Organization Healthcare Address [address] [place] [address] Care Team Providers Care Threat Monitoring Analyst Name Role Phone Phuong Perez MD Primary Care Provider [phone] Encounter Details Date Type Department Care Team [...] Medical Office Building Surgical Specialties [address], [address] [place] [address] Garo Fonseca MD [address] [address] documented as of this encounter Visit Diagnoses Not on filedocumented in this encounter Additional Health Concerns Assessment Noted Time A Body Mass Index follow-up plan has been documented for the patient 07/27/2024 3:45 PM EDT documented as of this encounter Care Teams Threat Monitoring Analyst Relationship Specialty Start Date End Date Phuong Perez MD PCP - General 11/13/23 documented as of this encounter
--- OUTSIDE RECORDS SUMMARY | 2025-08-27 07:45 | XMS_ITS | Encounter Summary ---
Author Organization [facility] Address [address] [place] [address] Care Team Providers Care Instrument Repairer Helper Name Role Phone Phuong Perez MD Primary Care Provider [phone] Reason for Referral * Consultation (Routine) - Closed Specialty Diagnoses / Procedures Referred By Contact Referred To Contact Gynecology / Obstetrics and Gynecology Diagnoses Abnormal uterine bleeding Phuong Perez MD [address] [facility] [address] [place] [phone] Phone: tel: fax: Referral ID Status Reason Start Date Expiration Date V isits Requested Visits Authorized [id number] Closed Specialty Services Required 11/12/2023 05/13/2025 1 1 Encounter Details Date Type Department Care Team ([facility] Contact Info) Description 11/12/2023 [facility] [address] [place] [address] Phuong Perez MD [address] [place] [id number] Abnormal uterine bleeding (Primary Dx) Social History [...] Upcoming Encounters Date Type Department Care Team ([facility] Contact Info) Description 09/06/2025 1:00 PM EST Consult Medical Office Building Surgical Specialties [address] [facility], [address] [place] [address] Garo Fonseca MD [address] [phone] Scheduled Referrals Name Type Priority Associated Diagnoses Order Schedule Ambulatory referral to Gynecology Outpatient Referral Routine Abnormal uterine bleeding 1 Occurrences starting 11/12/2023 until 05/12/2025 documented as of this encounter Visit Diagnoses Diagnosis Abnormal uterine bleeding- Primary Unspecified disorder of menstruation and other abnormal bleeding from female genital tract documented in this encounter Care Teams Instrument Repairer Helper Relationship Specialty Start Date End Date Phuong Perez MD PCP - General 11/13/23 documented as of this encounter
--- OUTSIDE RECORDS SUMMARY | 2025-08-27 07:45 | XMS_ITS | Encounter Summary ---
Author Organization Healthcare Address [address] [place] [address] Care Team Providers Care Fitness Studies Teacher Name Role Phone Phuong Perez MD Primary Care Provider [phone] Encounter Details Date Type Department Care Team (Late Contact Info) Description 03/01/2025 Orders Only External Location [address] [place] [address] Provider, External Social History Tobacco Use Types [...] Medical Office Building Surgical Specialties [address] [facility], [address] [place] [phone] Garo Fonseca MD [address] [place] [phone] documented as of this encounter Procedures [...] documented as of this encounter Care Teams Fitness Studies Teacher Relationship Specialty Start Date End Date Phuong Perez MD PCP - General 11/13/23 documented as of this encounter
--- OUTSIDE RECORDS SUMMARY | 2025-08-27 07:45 | XMS_ITS | Encounter Summary ---
Author Organization [facility] Address [address] [place] [address] Care Team Providers Care Residential Subcontractor Name Role Phone Rito Bobby Primary Care Provider + Encounter Details Date Type Department Care Team (Late st Contact Info) Description 08/03/2025 Results Follow-Up [facility] [address] [facility] [address] [place] [address] Christine Connell APRN [address] [facility] [address] [place] [phone] Social History Tobacco Use Types Packs/Day Years [...] or training? Not on file Preferred Language Somali 10/15/2024 Comments No Sex and Gender Information [...] 10/25/2025 8:00 AM EST Office Visit [facility] [address] [facility] [address] [place] [address] Christine Connell, ALLYSSA [address] [place] [address] documented as of this encounter Visit Diagnoses Not on filedocumented in this encounter Care Teams Residential Subcontractor Relationship Specialty Start Date End Date Rito Bobby DO [address] [place] [address] PCP - General Internal Medicine 12/17/24 documented as of this encounter
--- OUTSIDE RECORDS SUMMARY | 2025-08-27 07:45 | XMS_ITS | Encounter Summary ---
Author Organization [facility] Address [address] [place] [address] Care Team Providers Care Authors Motivational Name Role Phone Rito Bobby Primary Care [...] or training? Not on file Preferred Language Italian 10/15/2024 Comments No Sex and Gender Information Value Date Recorded Sex Assigned at Female 04/16/2025 9:07 AM EDT Legal Sex Female 10:48 AM EDT Gender Identity Not on file Sexual Orientation Straight 04/16/2025 9: 07 AM EDT documented as of this encounter Plan of Treatment Upcoming Encounters Date Type Department Care Team (Late st Contact Info) Description 10/25/2025 8:00 AM EST Office Visit [facility] [address] [facility] [address] [place] [address] Christine Connell, REFINERY OPERATOR [employer] [address] [place] [address] documented as of this encounter Visit Diagnoses Not on filedocumented in this encounter Care Teams Authors Motivational Relationship Specialty Start Date End Date Rito Bobby DO [address] [place] [address] [place] [address] PCP - General Internal Medicine 12/17/24 documented as of this encounter
--- NOTE | 2025-08-27 08:00 | US_ITS ---
FINAL REPORT CLINICAL HISTORY: E04.1 - Nontoxic single thyroid nodule / KYLE FELIZ -- RT THYROID NODULES X 2 FINDINGS: Ultrasound guided thyroid biopsy. HISTORY: Thyroid nodules. Request for 2 separate thyroid biopsies. PROCEDURE: After informed consent was obtained and a time-out was performed, the patient was prepped and draped in usual sterile fashion over the anterior neck. Utilizing local anesthesia and sterile technique with a 25-gauge needle, access to the a more medial, more superior lesion was obtained. Four passes were made. The patient received no conscious sedation. The patient tolerated procedure well and left the department in good condition. IMPRESSION: Status post ultrasound guided biopsy of a thyroid nodule without immediate complication. Ultrasound guided thyroid biopsy. HISTORY: Thyroid nodules. Request for 2 separate thyroid biopsies. PROCEDURE: After informed consent was obtained and a time-out was performed, the patient was prepped and draped in usual sterile fashion over the anterior neck. Utilizing local anesthesia and sterile technique with a 25-gauge needle, access to the larger, more inferior and lateral lesion was obtained. Four passes were made. The patient received no conscious sedation. The patient tolerated procedure well and left the department in good condition. IMPRESSION: Status post ultrasound guided biopsy of a thyroid nodule without immediate complication. Reviewed, Interpreted and Dictated by Brian Ying MD Transcribed by [employer] Authenticated and [facility]
== END 2025-08-27 23:59 | disposition home or self-care (01) ==
PROVIDERS: PCP Internal Medicine; Visit Provider Student in an Organized Health Care Education/Training Program
DX: E04.1 Nontoxic single thyroid nodule (principal)
CPT/HCPCS: 10005